=== PATIENT | male | born 1960 | race Caucasian/White ===

== ENCOUNTER 2017-09-07 15:54 | Inpatient (IN) ==
[2017-09-07] MEDS ORDERED: FUROSEMIDE 40 MG/4 ML VIAL IV STA (17:17)
[2017-09-07 17:24] LABS: Basophils % 0.8 % (0.0-0.8); Eosinophils # 0.1 10*3/uL (0.0-0.87); Eosinophils % 3.8 % (0.00-10.9); Hematocrit 22.2 VOL% (42.0-52.0); Hemoglobin 7.1 GM/DL (14.0-18.0); Immature Granulocytes % 0.4 %; Immature Granulocytes Absolute 0.01 #; Lymphocytes # 0.6 10*3/uL (1.4-4.0); Lymphocytes % 22.2 % (21.2-54.2); Mean Corpuscular Hemoglobin 33 PG (27-34); Mean Corpuscular Volume 101.8 FL (87-102); Monocytes # 0.5 10*3/uL (0.11-0.8); Monocytes % 17.7 % (1.7-12.7); Neutrophils # 1.5 10*3/uL (1.4-7.4); Neutrophils % 55.1 % (38.7-73.9); Red Blood Count 2.18 MC/CUMM (3.8-5.5); Red Cell Distribution Width 18.6 % (9.3-17.3); White Blood Count 2.7 T/CUMM (4-12)
[2017-09-07 17:27] LABS: Platelet Count 59 T/CUMM (130-400)
[2017-09-07 17:34] LABS: Albumin 1.7 G/DL (3.4-5.0); Bilirubin,Total 1.9 MG/DL (0.2-1.0); Calcium 7.7 MG/DL (8.5-10.1); Osmolality,Calculated 278.5 MOS/KG (273-304); Potassium 3.7 MMOL/L (3.5-5.1); Total Protein 6.2 G/DL (6.4-8.3)
[2017-09-07 19:12] LABS: Eosinophils 4 % (0-10); Lymphocytes 15 % (20-55); Platelet Estimate Decreased; Segmented Neutrophils 71 % (50-85); Total Cells Counted 100
[2017-09-07 19:24] LABS: Apearance,Urine CLEAR (Clear); Bilirubin,Urine Negative (Negative); Blood, Urine Negative (Negative); Glucose,Urine (UA) Negative (Negative); Hyaline Casts,Urine 3 /LPF (0-3); Ketones,Urine Negative (Negative); Mucus,Urine Occasional /LPF (Occasional); Nitrite,Urine Negative (Negative); Protein,Urine Negative; RBC,Urine <1 /HPF (0-4); Squamous Epithelial Cell,Urine Occasional /HPF (0-10); Urine Color Yellow (Yellow); Urine Specific Gravity 1.006 (1.001-1.035); Urine Urobilinogen < 2.0 EU/DL (0.2-1.0); WBC,Urine 1 /HPF (0-6)
[2017-09-07] MEDS ORDERED: SODIUM CHLORIDE 0.9% 1,000 ML IV PRN (23:48)
[2017-09-08] MEDS: FUROSEMIDE 40 MG/4 ML VIAL IV SCH ×3 (00:04→17:18)
[2017-09-08 00:13] LABS: Ferritin 9.9 ng/ml (26-388)
[2017-09-08 00:19] LABS: Folate 13.3 NG/ML (5.4-24.0)
[2017-09-08 05:18] LABS: Basophils % 0.8 % (0.0-0.8); Eosinophils # 0.1 10*3/uL (0.0-0.87); Hematocrit 23.7 VOL% (42.0-52.0); Hemoglobin 7.4 GM/DL (14.0-18.0); Lymphocytes # 0.6 10*3/uL (1.4-4.0); Lymphocytes % 25.3 % (21.2-54.2); Mean Corpuscular HGB Conc 31.2 GM/DL (32-36); Mean Corpuscular Hemoglobin 32 PG (27-34); Mean Corpuscular Volume 101.3 FL (87-102); Mean Platelet Volume 11.2 FL (9.6-12.0); Monocytes # 0.5 10*3/uL (0.11-0.8); Monocytes % 20.9 % (1.7-12.7); Neutrophils # 1.2 10*3/uL (1.4-7.4); Platelet Count 53 T/CUMM (130-400); Red Blood Count 2.34 MC/CUMM (3.8-5.5); Red Cell Distribution Width 19.1 % (9.3-17.3); White Blood Count 2.5 T/CUMM (4-12)
[2017-09-08] MEDS ORDERED: SODIUM CHLORIDE 0.9% 1,000 ML IV PRN ×2 (05:43→05:59)
[2017-09-08 05:51] LABS: Albumin 1.7 G/DL (3.4-5.0); Bilirubin,Total 1.7 MG/DL (0.2-1.0); Calcium 7.8 MG/DL (8.5-10.1); Osmolality,Calculated 282.3 MOS/KG (273-304); Potassium 3.7 MMOL/L (3.5-5.1)
[2017-09-08 05:59] LABS: INR 1.5; PT Patient Result 15.4 SECS; Partial Thromboplastin Time 29.9 SECS (0-40)
[2017-09-08 06:10] LABS: Band Neutrophils 3 % (0-10); Lymphocytes 28 % (20-55); Macrocytosis 3+; Platelet Estimate Decreased; Segmented Neutrophils 58 % (50-85); Total Cells Counted 100
[2017-09-08] MEDS: PANTOPRAZOLE 40 MG TABLET PO SCH (09:19)
[2017-09-08] MEDS: POTASSIUM CHLORIDE 20 MEQ TABLET PO SCH (09:20)
[2017-09-08] MEDS: PROPRANOLOL 10 MG TABLET PO SCH (09:20)
[2017-09-08] MEDS: SPIRONOLACTONE 25 MG TABLET PO SCH (09:20)
[2017-09-08] MEDS ORDERED: IRON SUCROSE 200 MG in SODIUM CHLORIDE 0.9% 100 ML IV ONE (12:17)
[2017-09-08] MEDS: MULTIVITAMIN (BEROCCA) TABLET PO SCH (14:18)
[2017-09-09] MEDS: FUROSEMIDE 40 MG/4 ML VIAL IV SCH ×3 (00:30→16:54)
[2017-09-09 04:56] LABS: Basophils % 0.8 % (0.0-0.8); Eosinophils # 0.1 10*3/uL (0.0-0.87); Eosinophils % 3.4 % (0.00-10.9); Hematocrit 26.3 VOL% (42.0-52.0); Hemoglobin 8.7 GM/DL (14.0-18.0); Lymphocytes # 0.6 10*3/uL (1.4-4.0); Lymphocytes % 22.8 % (21.2-54.2); Mean Corpuscular HGB Conc 33.1 GM/DL (32-36); Mean Corpuscular Hemoglobin 32 PG (27-34); Mean Corpuscular Volume 97.4 FL (87-102); Mean Platelet Volume 10.9 FL (9.6-12.0); Monocytes # 0.5 10*3/uL (0.11-0.8); Monocytes % 19.8 % (1.7-12.7); Neutrophils # 1.4 10*3/uL (1.4-7.4); Neutrophils % 53.2 % (38.7-73.9); Platelet Count 46 T/CUMM (130-400); Red Cell Distribution Width 18.2 % (9.3-17.3); White Blood Count 2.6 T/CUMM (4-12)
[2017-09-09 05:21] LABS: Calcium 7.6 MG/DL (8.5-10.1); Osmolality,Calculated 281.3 MOS/KG (273-304); Potassium 3.7 MMOL/L (3.5-5.1)
[2017-09-09 05:27] LABS: Band Neutrophils 2 % (0-10); Eosinophils 5 % (0-10); Lymphocytes 15 % (20-55); Segmented Neutrophils 63 % (50-85); Total Cells Counted 100
[2017-09-09 05:28] LABS: Hypochromasia 1+; Macrocytosis 1+; Platelet Estimate Decreased
[2017-09-09] MEDS ORDERED: MAGNESIUM SULF RIDER 2 GM in PREMIX 1 EACH IV PRN (06:12)
[2017-09-09] MEDS: MAGNESIUM SULF RIDER 4 GM in PREMIX 1 EACH IV PRN (06:23)
[2017-09-09] MEDS ORDERED: ALBUMIN 25% 25 GM in PREMIX 1 EACH IV ONE (10:00)
[2017-09-09] MEDS: PANTOPRAZOLE 40 MG TABLET PO SCH (10:17)
[2017-09-09] MEDS: SPIRONOLACTONE 25 MG TABLET PO SCH (10:17)
[2017-09-09] MEDS: MULTIVITAMIN (BEROCCA) TABLET PO SCH (10:17)
[2017-09-09] MEDS: POTASSIUM CHLORIDE 20 MEQ TABLET PO SCH (10:17)
[2017-09-09] MEDS: PROPRANOLOL 10 MG TABLET PO SCH (10:18)
[2017-09-10] MEDS: FUROSEMIDE 40 MG/4 ML VIAL IV SCH ×3 (02:09→16:43)
[2017-09-10 06:58] LABS: Basophils % 0.4 % (0.0-0.8); Eosinophils # 0.1 10*3/uL (0.0-0.87); Eosinophils % 3.2 % (0.00-10.9); Hematocrit 26.9 VOL% (42.0-52.0); Hemoglobin 8.7 GM/DL (14.0-18.0); Lymphocytes # 0.5 10*3/uL (1.4-4.0); Lymphocytes % 21.4 % (21.2-54.2); Mean Corpuscular HGB Conc 32.3 GM/DL (32-36); Mean Corpuscular Hemoglobin 32 PG (27-34); Mean Corpuscular Volume 98.9 FL (87-102); Mean Platelet Volume 11.2 FL (9.6-12.0); Monocytes # 0.6 10*3/uL (0.11-0.8); Monocytes % 23.4 % (1.7-12.7); Neutrophils # 1.3 10*3/uL (1.4-7.4); Neutrophils % 51.6 % (38.7-73.9); Red Blood Count 2.72 MC/CUMM (3.8-5.5); Red Cell Distribution Width 17.4 % (9.3-17.3); White Blood Count 2.5 T/CUMM (4-12)
[2017-09-10 07:17] LABS: Platelet Count 49 T/CUMM (130-400)
[2017-09-10 07:26] LABS: Calcium 7.8 MG/DL (8.5-10.1); Osmolality,Calculated 280.3 MOS/KG (273-304); Potassium 3.5 MMOL/L (3.5-5.1)
[2017-09-10 07:29] LABS: Albumin 1.8 G/DL (3.4-5.0); Bilirubin,Total 2.1 MG/DL (0.2-1.0); Calcium 7.8 MG/DL (8.5-10.1); Hypochromasia 1+; Osmolality,Calculated 280.3 MOS/KG (273-304); Potassium 3.5 MMOL/L (3.5-5.1); Target Cells Slight; Total Protein 6.4 G/DL (6.4-8.3)
[2017-09-10 07:30] LABS: Macrocytosis 1+; Platelet Estimate Decreased
[2017-09-10] MEDS: POTASSIUM CHLORIDE 20 MEQ TABLET PO SCH (09:46)
[2017-09-10] MEDS: PROPRANOLOL 10 MG TABLET PO SCH (09:47)
[2017-09-10] MEDS: MULTIVITAMIN (BEROCCA) TABLET PO SCH (09:47)
[2017-09-10] MEDS: PANTOPRAZOLE 40 MG TABLET PO SCH ×2 (09:47→20:34)
[2017-09-10] MEDS: SPIRONOLACTONE 25 MG TABLET PO SCH (09:47)
[2017-09-10 12:26] LABS: HIV Antigen/Antibody Result Nonreactive (Nonreactive)
[2017-09-10] MEDS ORDERED: NEOMYCIN/POLYMYXIN/BACITRACIN OINT 0.9 GM PACK TOP PRN (18:36)
[2017-09-10] MEDS ORDERED: SKIN HEALING OINT (AQUAPHOR) 50 GM TUBE TOP PRN (18:36)
[2017-09-10] MEDS: FERROUS SULFATE 325 MG TABLET PO SCH (20:34)
[2017-09-11 06:02] LABS: Basophils % 0.9 % (0.0-0.8); Eosinophils # 0.1 10*3/uL (0.0-0.87); Eosinophils % 2.7 % (0.00-10.9); Hematocrit 26.5 VOL% (42.0-52.0); Hemoglobin 8.6 GM/DL (14.0-18.0); Immature Granulocytes % 0.9 %; Immature Granulocytes Absolute 0.02 #; Lymphocytes # 0.5 10*3/uL (1.4-4.0); Lymphocytes % 19.9 % (21.2-54.2); Mean Corpuscular HGB Conc 32.5 GM/DL (32-36); Mean Corpuscular Hemoglobin 31 PG (27-34); Mean Corpuscular Volume 96.4 FL (87-102); Mean Platelet Volume 10.8 FL (9.6-12.0); Monocytes # 0.4 10*3/uL (0.11-0.8); Neutrophils # 1.3 10*3/uL (1.4-7.4); Neutrophils % 56.6 % (38.7-73.9); Platelet Count 52 T/CUMM (130-400); Red Blood Count 2.75 MC/CUMM (3.8-5.5); Red Cell Distribution Width 17.3 % (9.3-17.3); White Blood Count 2.3 T/CUMM (4-12)
[2017-09-11 06:28] LABS: Atypical Lymphocytes Few; Eosinophils 3 % (0-10); Hypochromasia 1+; Lymphocytes 24 % (20-55); Segmented Neutrophils 59 % (50-85); Total Cells Counted 100
[2017-09-11 06:29] LABS: Macrocytosis 1+; Platelet Estimate Decreased; Polychromasia Slight
[2017-09-11 06:38] LABS: Albumin 1.8 G/DL (3.4-5.0); Bilirubin,Direct 0.95 MG/DL (0.0-0.20); Bilirubin,Indirect 1.3 MG/DL (0.0-1.0); Bilirubin,Total 2.2 MG/DL (0.2-1.0); Calcium 7.5 MG/DL (8.5-10.1); Osmolality,Calculated 271.8 MOS/KG (273-304); Potassium 3.6 MMOL/L (3.5-5.1); Total Protein 6.4 G/DL (6.4-8.3)
[2017-09-11] MEDS: MULTIVITAMIN (BEROCCA) TABLET PO SCH (09:58)
[2017-09-11] MEDS: PANTOPRAZOLE 40 MG TABLET PO SCH ×2 (09:58→20:58)
[2017-09-11] MEDS: PROPRANOLOL 10 MG TABLET PO SCH (09:58)
[2017-09-11] MEDS: POTASSIUM CHLORIDE 20 MEQ TABLET PO SCH (09:59)
[2017-09-11] MEDS: FERROUS SULFATE 325 MG TABLET PO SCH ×3 (09:59→20:58)
[2017-09-11] MEDS: SPIRONOLACTONE 25 MG TABLET PO SCH (09:59)
[2017-09-11] MEDS: FUROSEMIDE 40 MG/4 ML VIAL IV SCH ×2 (10:02→17:15)
[2017-09-11] MEDS ORDERED: FUROSEMIDE 40 MG/4 ML VIAL IV ONE (13:39)
[2017-09-11] MEDS ORDERED: ALBUMIN 25% 25 GM in PREMIX 1 EACH IV ONE (14:00)
[2017-09-11] MEDS: BISACODYL 5 MG TABLET PO SCH ×2 (14:23→18:41)
[2017-09-11] MEDS: MAGNESIUM SULF RIDER 4 GM in PREMIX 1 EACH IV PRN (14:29)
[2017-09-11] MEDS ORDERED: LIDOCAINE 1% 5 ML VIAL ONE (15:10)
[2017-09-11] MEDS ORDERED: PROPOFOL 200 MG/20 ML VIAL IV ONE (15:10)
[2017-09-11] MEDS ORDERED: IBUPROFEN 600 MG TABLET PO PRN ×2 (16:07→16:25)
[2017-09-11] MEDS ORDERED: POLYETHYLENE GLYCOL POWDER 255 GM BOTTLE PO ONE (18:00)
[2017-09-11] MEDS: MAGNESIUM CHLORIDE 64 MG TABLET PO SCH (20:58)
[2017-09-11] MEDS ORDERED: MAGNESIUM CITRATE 300 ML BOTTLE PO ONE (21:00)
[2017-09-12] MEDS: BISACODYL 5 MG TABLET PO SCH (00:38)
[2017-09-12 05:24] LABS: Basophils % 0.9 % (0.0-0.8); Eosinophils # 0.1 10*3/uL (0.0-0.87); Hematocrit 26.9 VOL% (42.0-52.0); Hemoglobin 8.9 GM/DL (14.0-18.0); Immature Granulocytes % 0.6 %; Immature Granulocytes Absolute 0.02 #; Lymphocytes # 0.8 10*3/uL (1.4-4.0); Lymphocytes % 22.5 % (21.2-54.2); Mean Corpuscular HGB Conc 33.1 GM/DL (32-36); Mean Corpuscular Hemoglobin 33 PG (27-34); Mean Corpuscular Volume 98.2 FL (87-102); Mean Platelet Volume 11.2 FL (9.6-12.0); Monocytes # 0.9 10*3/uL (0.11-0.8); Monocytes % 26.6 % (1.7-12.7); NRBC # 0.02 10*3/uL; Neutrophils # 1.6 10*3/uL (1.4-7.4); Neutrophils % 46.4 % (38.7-73.9); Platelet Count 55 T/CUMM (130-400); Red Blood Count 2.74 MC/CUMM (3.8-5.5); Red Cell Distribution Width 17.2 % (9.3-17.3); White Blood Count 3.3 T/CUMM (4-12)
[2017-09-12 06:06] LABS: Albumin 2.1 G/DL (3.4-5.0); Band Neutrophils 8 % (0-10); Bilirubin,Direct 1.05 MG/DL (0.0-0.20); Bilirubin,Indirect 1.1 MG/DL (0.0-1.0); Bilirubin,Total 2.1 MG/DL (0.2-1.0); Calcium 7.7 MG/DL (8.5-10.1); Eosinophils 6 % (0-10); Lymphocytes 17 % (20-55); Macrocytosis 2+; Osmolality,Calculated 275.5 MOS/KG (273-304); Platelet Estimate Decreased; Potassium 3.4 MMOL/L (3.5-5.1); Segmented Neutrophils 60 % (50-85); Total Cells Counted 100; Total Protein 6.6 G/DL (6.4-8.3)
[2017-09-12] MEDS ORDERED: LIDOCAINE 1% 5 ML VIAL ONE (08:08)
[2017-09-12] MEDS ORDERED: PROPOFOL 200 MG/20 ML VIAL IV ONE (08:08)
[2017-09-12] MEDS ORDERED: ACETAMINOPHEN 500 MG TABLET PO PRN (08:41)
[2017-09-12] MEDS ORDERED: PROPRANOLOL 10 MG TABLET PO SCH (09:00)
[2017-09-12] MEDS: MAGNESIUM CHLORIDE 64 MG TABLET PO SCH (09:28)
[2017-09-12] MEDS: FERROUS SULFATE 325 MG TABLET PO SCH (09:28)
[2017-09-12] MEDS: PANTOPRAZOLE 40 MG TABLET PO SCH (09:28)
[2017-09-12] MEDS: MULTIVITAMIN (BEROCCA) TABLET PO SCH (09:29)
[2017-09-12] MEDS: FUROSEMIDE 40 MG/4 ML VIAL IV SCH (09:29)
[2017-09-12] MEDS: SPIRONOLACTONE 25 MG TABLET PO SCH (09:29)
[2017-09-12] MEDS: POTASSIUM CHLORIDE 20 MEQ TABLET PO SCH (09:29)
[2017-09-12 12:49] VITALS: BP 127/70
== END 2017-09-12 15:05 | disposition home or self-care (01) | DRG 441 ==
LOC: N.ED 15:54 → N.EDINP 21:14 → N.TELES 22:40
PROVIDERS: ADMIT Family Medicine; ATTEND Family Medicine

== ENCOUNTER 2017-09-17 11:58 | Observation (INO) ==
[2017-09-17 15:10] LABS: Basophils % 0.7 % (0.0-0.8); Eosinophils # 0.1 10*3/uL (0.0-0.87); Eosinophils % 1.7 % (0.00-10.9); Hematocrit 33.4 VOL% (42.0-52.0); Hemoglobin 10.9 GM/DL (14.0-18.0); Immature Granulocytes % 0.5 %; Immature Granulocytes Absolute 0.02 #; Lymphocytes # 0.7 10*3/uL (1.4-4.0); Lymphocytes % 16.4 % (21.2-54.2); Mean Corpuscular HGB Conc 32.6 GM/DL (32-36); Mean Corpuscular Hemoglobin 33 PG (27-34); Mean Corpuscular Volume 100.6 FL (87-102); Monocytes # 0.6 10*3/uL (0.11-0.8); Monocytes % 15.4 % (1.7-12.7); Neutrophils # 2.6 10*3/uL (1.4-7.4); Neutrophils % 65.3 % (38.7-73.9); Platelet Count 98 T/CUMM (130-400); Red Blood Count 3.32 MC/CUMM (3.8-5.5); Red Cell Distribution Width 19.2 % (9.3-17.3)
[2017-09-17 15:17] LABS: INR 1.3; PT Patient Result 13.8 SECS; Partial Thromboplastin Time 28.8 SECS (0-40)
[2017-09-17 15:26] LABS: Albumin 2.5 G/DL (3.4-5.0); Bilirubin,Total 2.2 MG/DL (0.2-1.0); Calcium 8.1 MG/DL (8.5-10.1); Osmolality,Calculated 276.5 MOS/KG (273-304); Potassium 3.6 MMOL/L (3.5-5.1); Total Protein 7.8 G/DL (6.4-8.3)
[2017-09-17 15:55] LABS: Barbiturates Screen,Urine Negative (Negative); Benzodiazepines Screen,Urine Negative (Negative); Cannabinoid Screen,Urine Negative (Negative); Opiate Screen,Urine Negative (Negative); Phencyclidine Screen,Urine Negative (Negative)
[2017-09-17 16:01] LABS: Apearance,Urine CLEAR (Clear); Bilirubin,Urine Negative (Negative); Blood, Urine Small mg/dL (Negative); Glucose,Urine (UA) Negative (Negative); Ketones,Urine 5 mg/dL (Negative); Mucus,Urine Occasional /LPF (Occasional); Nitrite,Urine Negative (Negative); Protein,Urine Negative; RBC,Urine 3 /HPF (0-4); Urine Color Amber (Yellow); Urine Specific Gravity 1.017 (1.001-1.035); WBC,Urine 2 /HPF (0-6)
[2017-09-17] MEDS ORDERED: ONDANSETRON 4 MG/2 ML VIAL IV PRN (16:57)
[2017-09-17] MEDS ORDERED: ACETAMINOPHEN 325 MG TABLET PO PRN (16:57)
[2017-09-17] MEDS ORDERED: LACTULOSE 20 GM/30 ML UDCUP PO STA (17:00)
[2017-09-17] MEDS ORDERED: PANTOPRAZOLE 40 MG TABLET PO SCH (17:00)
[2017-09-17 17:20] LABS: Albumin 2.5 G/DL (3.4-5.0); Bilirubin,Direct 1.18 MG/DL (0.0-0.20); Bilirubin,Indirect 1.1 MG/DL (0.0-1.0); Bilirubin,Total 2.3 MG/DL (0.2-1.0); Total Protein 7.8 G/DL (6.4-8.3)
[2017-09-17] MEDS: MAGNESIUM CHLORIDE 64 MG TABLET PO SCH (21:13)
[2017-09-17] MEDS: DOCUSATE SODIUM 100 MG CAPSULE PO SCH (21:13)
[2017-09-17] MEDS: FUROSEMIDE 40 MG TABLET PO SCH (21:13)
[2017-09-17] MEDS: FERROUS SULFATE 325 MG TABLET PO SCH (21:14)
[2017-09-17] MEDS ORDERED: ALBUTEROL 2.5 MG/3 ML NEB RESP TX PRN (22:39)
[2017-09-17] MEDS: LACTULOSE 20 GM/30 ML UDCUP PO SCH (23:25)
[2017-09-18] MEDS: LACTULOSE 20 GM/30 ML UDCUP PO SCH ×2 (06:06→19:41)
[2017-09-18] MEDS ORDERED: SPIRONOLACTONE 50 MG TABLET PO SCH (09:00)
[2017-09-18 09:23] LABS: Eosinophils # 0.1 10*3/uL (0.0-0.87); Eosinophils % 2.6 % (0.00-10.9); Hematocrit 30.2 VOL% (42.0-52.0); Hemoglobin 10.2 GM/DL (14.0-18.0); Immature Granulocytes % 0.3 %; Immature Granulocytes Absolute 0.01 #; Lymphocytes # 0.6 10*3/uL (1.4-4.0); Lymphocytes % 20.3 % (21.2-54.2); Mean Corpuscular HGB Conc 33.8 GM/DL (32-36); Mean Corpuscular Hemoglobin 33 PG (27-34); Mean Corpuscular Volume 98.1 FL (87-102); Mean Platelet Volume 10.3 FL (9.6-12.0); Monocytes # 0.5 10*3/uL (0.11-0.8); Monocytes % 16.7 % (1.7-12.7); Neutrophils # 1.8 10*3/uL (1.4-7.4); Neutrophils % 59.1 % (38.7-73.9); Platelet Count 88 T/CUMM (130-400); Red Blood Count 3.08 MC/CUMM (3.8-5.5); Red Cell Distribution Width 18.8 % (9.3-17.3); White Blood Count 3.1 T/CUMM (4-12)
[2017-09-18 09:36] LABS: Calcium 8.1 MG/DL (8.5-10.1); Osmolality,Calculated 275.7 MOS/KG (273-304); Potassium 3.3 MMOL/L (3.5-5.1)
[2017-09-18 09:42] LABS: Albumin 2.3 G/DL (3.4-5.0); Bilirubin,Direct 1.01 MG/DL (0.0-0.20); Bilirubin,Indirect 1.1 MG/DL (0.0-1.0); Bilirubin,Total 2.1 MG/DL (0.2-1.0); Total Protein 7.3 G/DL (6.4-8.3)
[2017-09-18 09:52] LABS: Anisocytosis Slight; Band Neutrophils 5 % (0-10); Eosinophils 2 % (0-10); Lymphocytes 19 % (20-55); Platelet Estimate Decreased; Polychromasia Slight; Segmented Neutrophils 61 % (50-85); Total Cells Counted 100
[2017-09-18 09:53] LABS: Macrocytosis Slight
[2017-09-18] MEDS ORDERED: MAGNESIUM SULF RIDER 2 GM in PREMIX 1 EACH IV PRN (10:39)
[2017-09-18] MEDS ORDERED: MAGNESIUM SULF RIDER 4 GM in PREMIX 1 EACH IV PRN (10:39)
[2017-09-18] MEDS: SPIRONOLACTONE 25 MG TABLET PO SCH (10:49)
[2017-09-18] MEDS: DOCUSATE SODIUM 100 MG CAPSULE PO SCH ×2 (10:49→21:18)
[2017-09-18] MEDS: FERROUS SULFATE 325 MG TABLET PO SCH ×3 (10:49→21:18)
[2017-09-18] MEDS: PROPRANOLOL 10 MG TABLET PO SCH (10:50)
[2017-09-18] MEDS: PANTOPRAZOLE 40 MG TABLET PO SCH ×2 (10:50→21:18)
[2017-09-18] MEDS: FUROSEMIDE 40 MG TABLET PO SCH ×2 (10:50→21:18)
[2017-09-18] MEDS: POTASSIUM CHLORIDE 20 MEQ TABLET PO SCH (10:50)
[2017-09-18] MEDS: MAGNESIUM CHLORIDE 64 MG TABLET PO SCH ×2 (10:50→21:18)
[2017-09-18] MEDS ORDERED: LACTULOSE 20 GM/30 ML UDCUP PO ONE (12:18)
[2017-09-18] MEDS: traZODone 50 MG TABLET PO PRN (21:18)
[2017-09-19] MEDS: LACTULOSE 20 GM/30 ML UDCUP PO SCH ×4 (04:34→21:29)
[2017-09-19] MEDS: PANTOPRAZOLE 40 MG TABLET PO SCH (09:27)
[2017-09-19] MEDS: POTASSIUM CHLORIDE 20 MEQ TABLET PO SCH (09:27)
[2017-09-19] MEDS: SPIRONOLACTONE 25 MG TABLET PO SCH (09:27)
[2017-09-19] MEDS: DOCUSATE SODIUM 100 MG CAPSULE PO SCH (09:27)
[2017-09-19] MEDS: MAGNESIUM CHLORIDE 64 MG TABLET PO SCH ×2 (09:27→21:30)
[2017-09-19] MEDS: FERROUS SULFATE 325 MG TABLET PO SCH ×3 (09:27→21:31)
[2017-09-19] MEDS: FUROSEMIDE 40 MG TABLET PO SCH (09:27)
[2017-09-19] MEDS: PROPRANOLOL 10 MG TABLET PO SCH (09:27)
[2017-09-19 12:32] LABS: Basophils # 0.1 10*3/uL (0.0-0.2); Basophils % 1.1 % (0.0-0.8); Eosinophils # 0.1 10*3/uL (0.0-0.87); Eosinophils % 2.3 % (0.00-10.9); Hematocrit 33.3 VOL% (42.0-52.0); Immature Granulocytes % 0.2 %; Immature Granulocytes Absolute 0.01 #; Lymphocytes # 0.7 10*3/uL (1.4-4.0); Mean Corpuscular Hemoglobin 33 PG (27-34); Mean Corpuscular Volume 99.4 FL (87-102); Mean Platelet Volume 10.2 FL (9.6-12.0); Monocytes # 0.8 10*3/uL (0.11-0.8); Monocytes % 17.4 % (1.7-12.7); Neutrophils # 2.8 10*3/uL (1.4-7.4); Platelet Count 109 T/CUMM (130-400); Red Blood Count 3.35 MC/CUMM (3.8-5.5); Red Cell Distribution Width 18.4 % (9.3-17.3); White Blood Count 4.4 T/CUMM (4-12)
[2017-09-19] MEDS ORDERED: ACETAMINOPHEN 500 MG TABLET PO PRN (12:32)
[2017-09-19 13:05] LABS: Albumin 2.4 G/DL (3.4-5.0); Bilirubin,Direct 0.99 MG/DL (0.0-0.20); Bilirubin,Indirect 1.2 MG/DL (0.0-1.0); Bilirubin,Total 2.2 MG/DL (0.2-1.0); Calcium 7.8 MG/DL (8.5-10.1); Osmolality,Calculated 271.8 MOS/KG (273-304); Potassium 3.5 MMOL/L (3.5-5.1)
[2017-09-19 14:53] LABS: Eosinophils 6 % (0-10); Lymphocytes 15 % (20-55); Metamyelocytes 1 %; Polychromasia Few; Segmented Neutrophils 73 % (50-85); Smudge Cells Few; Total Cells Counted 100
[2017-09-19 14:54] LABS: Hypochromasia 1+; Microcytosis 1+; Target Cells Few
[2017-09-19 14:55] LABS: Platelet Estimate Decreased
[2017-09-19] MEDS ORDERED: POTASSIUM CHLORIDE 20 MEQ TABLET PO ONE (20:36)
[2017-09-19] MEDS ORDERED: traMADol 50 MG TABLET PO PRN (20:37)
[2017-09-19] MEDS: traZODone 50 MG TABLET PO PRN (21:30)
[2017-09-20] MEDS: LACTULOSE 20 GM/30 ML UDCUP PO SCH ×2 (03:39→11:55)
[2017-09-20 08:22] LABS: Basophils # 0.1 10*3/uL (0.0-0.2); Basophils % 1.1 % (0.0-0.8); Eosinophils # 0.1 10*3/uL (0.0-0.87); Hematocrit 35.1 VOL% (42.0-52.0); Hemoglobin 11.2 GM/DL (14.0-18.0); Immature Granulocytes % 0.5 %; Immature Granulocytes Absolute 0.02 #; Lymphocytes % 22.3 % (21.2-54.2); Mean Corpuscular HGB Conc 31.9 GM/DL (32-36); Mean Corpuscular Hemoglobin 32 PG (27-34); Mean Corpuscular Volume 101.4 FL (87-102); Mean Platelet Volume 10.3 FL (9.6-12.0); Monocytes # 0.6 10*3/uL (0.11-0.8); Monocytes % 14.5 % (1.7-12.7); Neutrophils # 2.6 10*3/uL (1.4-7.4); Neutrophils % 58.6 % (38.7-73.9); Platelet Count 103 T/CUMM (130-400); Red Blood Count 3.46 MC/CUMM (3.8-5.5); Red Cell Distribution Width 18.2 % (9.3-17.3); White Blood Count 4.4 T/CUMM (4-12)
[2017-09-20 08:35] LABS: INR 1.3; PT Patient Result 13.5 SECS
[2017-09-20 08:47] LABS: Albumin 2.2 G/DL (3.4-5.0); Bilirubin,Direct 0.82 MG/DL (0.0-0.20); Bilirubin,Indirect 0.8 MG/DL (0.0-1.0); Bilirubin,Total 1.6 MG/DL (0.2-1.0); Calcium 8.1 MG/DL (8.5-10.1); Osmolality,Calculated 273.7 MOS/KG (273-304); Potassium 3.7 MMOL/L (3.5-5.1); Total Protein 7.7 G/DL (6.4-8.3)
[2017-09-20] MEDS ORDERED: FUROSEMIDE 40 MG TABLET PO SCH (09:00)
[2017-09-20] MEDS ORDERED: PANTOPRAZOLE 40 MG TABLET PO SCH (09:00)
[2017-09-20 09:45] LABS: Hypochromasia 1+; Macrocytosis 1+; Polychromasia Slight
[2017-09-20 11:34] VITALS: BP 117/70
[2017-09-20] MEDS: FERROUS SULFATE 325 MG TABLET PO SCH (11:53)
[2017-09-20] MEDS: PROPRANOLOL 10 MG TABLET PO SCH (11:53)
[2017-09-20] MEDS: SPIRONOLACTONE 25 MG TABLET PO SCH (11:53)
[2017-09-20] MEDS: MAGNESIUM CHLORIDE 64 MG TABLET PO SCH (11:54)
[2017-09-20] MEDS: POTASSIUM CHLORIDE 20 MEQ TABLET PO SCH (11:54)
[2017-09-20] MEDS ORDERED: LACTULOSE 20 GM/30 ML UDCUP PO SCH (13:00)
[2017-09-20] MEDS ORDERED: RIFAXIMIN 550 MG TABLET PO SCH (21:00)
== END 2017-09-20 15:55 | disposition home or self-care (01) ==
LOC: N.ED 11:58 → N.EDINP 11:58 → N.3E 18:35
PROVIDERS: ADMIT Family Medicine; ATTEND Family Medicine

== ENCOUNTER 2018-08-03 13:10 | Inpatient (IN) ==
[2018-08-03 13:46] LABS: Basophils % 0.5 % (0.0-0.8); Eosinophils # 0.1 10*3/uL (0.0-0.87); Eosinophils % 1.3 % (0.00-10.9); Hematocrit 34.4 VOL% (42.0-52.0); Hemoglobin 11.6 GM/DL (14.0-18.0); Immature Granulocytes % 0.3 %; Immature Granulocytes Absolute 0.01 #; Lymphocytes # 0.4 10*3/uL (1.4-4.0); Lymphocytes % 9.9 % (21.2-54.2); Mean Corpuscular HGB Conc 33.7 GM/DL (32-36); Mean Corpuscular Volume 113.5 FL (87-102); Mean Platelet Volume 9.6 FL (9.6-12.0); Monocytes % 15.3 % (1.7-12.7); Neutrophils % 72.7 % (38.7-73.9); Red Blood Count 3.03 MC/CUMM (3.8-5.5); Red Cell Distribution Width 17.8 % (9.3-17.3); White Blood Count 3.9 T/CUMM (4-12)
[2018-08-03 13:49] LABS: Platelet Count 82 T/CUMM (130-400)
[2018-08-03 14:01] LABS: Bilirubin,Total 5.8 MG/DL (0.2-1.0); Calcium 7.9 MG/DL (8.5-10.1); Total Protein 7.4 G/DL (6.4-8.3)
[2018-08-03 14:05] LABS: INR 1.6; PT Patient Result 17.3 SECS
[2018-08-03 14:07] LABS: Anisocytosis Slight; Lymphocytes 10 % (20-55); Segmented Neutrophils 76 % (50-85); Total Cells Counted 100
[2018-08-03 14:08] LABS: Platelet Estimate Decreased; Target Cells Few
[2018-08-03] MEDS ORDERED: ONDANSETRON 4 MG/2 ML VIAL IV PRN (15:25)
[2018-08-03] MEDS ORDERED: LACTULOSE 20 GM/30 ML UDCUP PO PRN (15:29)
[2018-08-03] MEDS ORDERED: ALBUTEROL 2.5 MG/3 ML NEB RESP TX PRN (15:29)
[2018-08-03] MEDS: FUROSEMIDE 40 MG/4 ML VIAL IV SCH (17:32)
[2018-08-03] MEDS: GABAPENTIN 100 MG CAPSULE PO SCH (20:37)
[2018-08-03] MEDS: traZODone 50 MG TABLET PO PRN (20:41)
[2018-08-04 04:26] LABS: Basophils % 0.7 % (0.0-0.8); Eosinophils # 0.1 10*3/uL (0.0-0.87); Eosinophils % 2.7 % (0.00-10.9); Hematocrit 29.1 VOL% (42.0-52.0); Hemoglobin 9.7 GM/DL (14.0-18.0); Immature Granulocytes % 0.3 %; Immature Granulocytes Absolute 0.01 #; Lymphocytes # 0.4 10*3/uL (1.4-4.0); Lymphocytes % 12.6 % (21.2-54.2); Mean Corpuscular HGB Conc 33.3 GM/DL (32-36); Mean Corpuscular Volume 113.2 FL (87-102); Mean Platelet Volume 9.6 FL (9.6-12.0); Monocytes % 16.3 % (1.7-12.7); Neutrophils % 67.4 % (38.7-73.9); Red Blood Count 2.57 MC/CUMM (3.8-5.5); Red Cell Distribution Width 17.8 % (9.3-17.3)
[2018-08-04 04:33] LABS: Platelet Count 61 T/CUMM (130-400)
[2018-08-04 04:43] LABS: Calcium 7.5 MG/DL (8.5-10.1)
[2018-08-04 05:00] LABS: Eosinophils 1 % (0-10); Lymphocytes 14 % (20-55); Segmented Neutrophils 68 % (50-85); Total Cells Counted 100
[2018-08-04 05:01] LABS: Anisocytosis 1+; Hypochromasia 2+; Macrocytosis 1+; Platelet Estimate Decreased
[2018-08-04] MEDS: VENLAFAXINE XR 37.5 MG CAPSULE PO SCH (09:16)
[2018-08-04] MEDS: PANTOPRAZOLE 40 MG TABLET PO SCH (09:16)
[2018-08-04] MEDS: SPIRONOLACTONE 100 MG TABLET PO SCH (09:16)
[2018-08-04] MEDS: FERROUS SULFATE 325 MG TABLET PO SCH (09:17)
[2018-08-04] MEDS: GABAPENTIN 100 MG CAPSULE PO SCH ×2 (09:17→21:33)
[2018-08-04] MEDS: FUROSEMIDE 40 MG/4 ML VIAL IV SCH ×2 (09:17→16:29)
[2018-08-04] MEDS: POTASSIUM CHLORIDE 20 MEQ TABLET PO SCH (09:17)
[2018-08-04 11:59] LABS: Albumin 1.7 G/DL (3.4-5.0); Bilirubin,Direct 3.4 MG/DL (0.0-0.20); Bilirubin,Indirect 2.3 MG/DL (0.0-1.0); Bilirubin,Total 5.7 MG/DL (0.2-1.0); Total Protein 6.4 G/DL (6.4-8.3)
[2018-08-04] MEDS ORDERED: MAGNESIUM SULF RIDER 4 GM in PREMIX 1 EACH IV PRN (13:53)
[2018-08-04] MEDS: POTASSIUM CHLORIDE 20 MEQ TABLET PO PRN ×4 (14:28→21:32)
[2018-08-04] MEDS: MAGNESIUM CHLORIDE 64 MG TABLET PO SCH (21:32)
[2018-08-04] MEDS: traZODone 50 MG TABLET PO PRN (21:33)
[2018-08-05 05:12] LABS: Calcium 7.5 MG/DL (8.5-10.1); Osmolality,Calculated 265.2 MOS/KG (273-304)
[2018-08-05 05:14] LABS: Albumin 1.6 G/DL (3.4-5.0); Bilirubin,Total 5.5 MG/DL (0.2-1.0); Calcium 7.5 MG/DL (8.5-10.1); Osmolality,Calculated 265.2 MOS/KG (273-304); Total Protein 6.2 G/DL (6.4-8.3)
[2018-08-05] MEDS: POTASSIUM CHLORIDE 20 MEQ TABLET PO PRN ×2 (05:44→14:45)
[2018-08-05] MEDS: MAGNESIUM SULF RIDER 2 GM in PREMIX 1 EACH IV PRN (05:44)
[2018-08-05 07:43] LABS: Basophils % 0.6 % (0.0-0.8); Eosinophils # 0.1 10*3/uL (0.0-0.87); Eosinophils % 1.9 % (0.00-10.9); Hematocrit 31.5 VOL% (42.0-52.0); Hemoglobin 10.8 GM/DL (14.0-18.0); Immature Granulocytes % 0.6 %; Immature Granulocytes Absolute 0.02 #; Lymphocytes # 0.5 10*3/uL (1.4-4.0); Lymphocytes % 12.5 % (21.2-54.2); Mean Corpuscular HGB Conc 34.3 GM/DL (32-36); Mean Corpuscular Volume 114.1 FL (87-102); Mean Platelet Volume 9.6 FL (9.6-12.0); Monocytes % 16.7 % (1.7-12.7); Neutrophils % 67.7 % (38.7-73.9); Platelet Count 56 T/CUMM (130-400); Red Blood Count 2.76 MC/CUMM (3.8-5.5); Red Cell Distribution Width 17.4 % (9.3-17.3); White Blood Count 3.6 T/CUMM (4-12)
[2018-08-05 08:05] LABS: Band Neutrophils 1 % (0-10); Eosinophils 4 % (0-10); Lymphocytes 9 % (20-55); Segmented Neutrophils 73 % (50-85); Total Cells Counted 100
[2018-08-05 08:06] LABS: Hypochromasia 1+; Macrocytosis Slight; Platelet Estimate Decreased
[2018-08-05] MEDS: GABAPENTIN 100 MG CAPSULE PO SCH ×2 (10:18→20:54)
[2018-08-05] MEDS: MAGNESIUM CHLORIDE 64 MG TABLET PO SCH ×3 (10:18→20:54)
[2018-08-05] MEDS: SPIRONOLACTONE 100 MG TABLET PO SCH (10:18)
[2018-08-05] MEDS: FERROUS SULFATE 325 MG TABLET PO SCH (10:18)
[2018-08-05] MEDS: FUROSEMIDE 40 MG/4 ML VIAL IV SCH ×2 (10:19→16:48)
[2018-08-05] MEDS: VENLAFAXINE XR 37.5 MG CAPSULE PO SCH (10:19)
[2018-08-05] MEDS: LACTULOSE 20 GM/30 ML UDCUP PO SCH ×3 (10:19→20:54)
[2018-08-05] MEDS: POTASSIUM CHLORIDE 20 MEQ TABLET PO SCH (11:42)
[2018-08-05] MEDS: PANTOPRAZOLE 40 MG TABLET PO SCH (11:43)
[2018-08-05] MEDS: traZODone 50 MG TABLET PO PRN (20:54)
[2018-08-06] MEDS: LACTULOSE 20 GM/30 ML UDCUP PO SCH ×4 (03:43→22:58)
[2018-08-06 04:55] LABS: Albumin 1.6 G/DL (3.4-5.0); Bilirubin,Direct 2.99 MG/DL (0.0-0.20); Bilirubin,Indirect 2.4 MG/DL (0.0-1.0); Bilirubin,Total 5.4 MG/DL (0.2-1.0); Total Protein 6.3 G/DL (6.4-8.3)
[2018-08-06 04:57] LABS: Basophils % 0.6 % (0.0-0.8); Eosinophils # 0.1 10*3/uL (0.0-0.87); Eosinophils % 2.2 % (0.00-10.9); Hematocrit 29.3 VOL% (42.0-52.0); Immature Granulocytes % 0.3 %; Immature Granulocytes Absolute 0.01 #; Lymphocytes # 0.4 10*3/uL (1.4-4.0); Lymphocytes % 13.2 % (21.2-54.2); Mean Corpuscular HGB Conc 34.1 GM/DL (32-36); Mean Corpuscular Volume 115.4 FL (87-102); Mean Platelet Volume 9.9 FL (9.6-12.0); Monocytes % 18.9 % (1.7-12.7); Neutrophils % 64.8 % (38.7-73.9); Platelet Count 53 T/CUMM (130-400); Red Blood Count 2.54 MC/CUMM (3.8-5.5); Red Cell Distribution Width 17.3 % (9.3-17.3); White Blood Count 3.2 T/CUMM (4-12)
[2018-08-06 05:01] LABS: Calcium 7.5 MG/DL (8.5-10.1); Osmolality,Calculated 270.8 MOS/KG (273-304)
[2018-08-06 06:28] LABS: Band Neutrophils 2 % (0-10); Total Cells Counted 100
[2018-08-06 06:29] LABS: Anisocytosis 3+; Eosinophils 4 % (0-10); Hypochromasia 2+; Lymphocytes 15 % (20-55); Macrocytosis 2+; Microcytosis 1+; Ovalocytes 1+; Platelet Estimate Decreased; Polychromasia Few; Segmented Neutrophils 63 % (50-85)
[2018-08-06] MEDS: PANTOPRAZOLE 40 MG TABLET PO SCH (08:59)
[2018-08-06] MEDS: MAGNESIUM CHLORIDE 64 MG TABLET PO SCH ×3 (08:59→22:58)
[2018-08-06] MEDS: FERROUS SULFATE 325 MG TABLET PO SCH (08:59)
[2018-08-06] MEDS: SPIRONOLACTONE 100 MG TABLET PO SCH (08:59)
[2018-08-06] MEDS: POTASSIUM CHLORIDE 20 MEQ TABLET PO SCH (08:59)
[2018-08-06] MEDS: GABAPENTIN 100 MG CAPSULE PO SCH ×2 (08:59→22:58)
[2018-08-06] MEDS: FUROSEMIDE 40 MG/4 ML VIAL IV SCH ×2 (08:59→15:58)
[2018-08-06] MEDS: VENLAFAXINE XR 37.5 MG CAPSULE PO SCH (09:55)
[2018-08-06] MEDS: MAGNESIUM SULF RIDER 2 GM in PREMIX 1 EACH IV PRN (13:59)
[2018-08-06] MEDS: POTASSIUM CHLORIDE 20 MEQ TABLET PO PRN (13:59)
[2018-08-06] MEDS: traZODone 50 MG TABLET PO PRN (22:58)
[2018-08-07 05:19] LABS: Basophils % 0.6 % (0.0-0.8); Eosinophils # 0.1 10*3/uL (0.0-0.87); Eosinophils % 2.5 % (0.00-10.9); Hematocrit 30.1 VOL% (42.0-52.0); Hemoglobin 10.1 GM/DL (14.0-18.0); Immature Granulocytes % 0.3 %; Immature Granulocytes Absolute 0.01 #; Lymphocytes # 0.4 10*3/uL (1.4-4.0); Lymphocytes % 11.3 % (21.2-54.2); Mean Corpuscular HGB Conc 33.6 GM/DL (32-36); Mean Corpuscular Volume 115.8 FL (87-102); Mean Platelet Volume 9.8 FL (9.6-12.0); Monocytes % 16.9 % (1.7-12.7); Neutrophils % 68.4 % (38.7-73.9); Platelet Count 64 T/CUMM (130-400); Red Cell Distribution Width 17.2 % (9.3-17.3); White Blood Count 3.5 T/CUMM (4-12)
[2018-08-07 05:37] LABS: Albumin 1.5 G/DL (3.4-5.0); Bilirubin,Total 5.6 MG/DL (0.2-1.0); Calcium 7.8 MG/DL (8.5-10.1); Osmolality,Calculated 267.1 MOS/KG (273-304); Total Protein 6.4 G/DL (6.4-8.3)
[2018-08-07 05:44] LABS: Albumin 1.6 G/DL (3.4-5.0); Bilirubin,Direct 2.96 MG/DL (0.0-0.20); Bilirubin,Indirect 2.6 MG/DL (0.0-1.0); Bilirubin,Total 5.6 MG/DL (0.2-1.0); Total Protein 6.4 G/DL (6.4-8.3)
[2018-08-07 05:58] LABS: Eosinophils 3 % (0-10); Lymphocytes 12 % (20-55); Metamyelocytes 1 %; Segmented Neutrophils 72 % (50-85); Total Cells Counted 100
[2018-08-07 05:59] LABS: Anisocytosis 1+; Hypochromasia 2+; Macrocytosis 1+; Platelet Estimate Decreased; Polychromasia 1+; Target Cells 2+
[2018-08-07] MEDS: LACTULOSE 20 GM/30 ML UDCUP PO SCH ×4 (06:08→21:20)
[2018-08-07 10:26] LABS: Neutrophils,Peritoneal Fluid 5 %
[2018-08-07 10:27] LABS: RBC,Peritoneal Fluid 25936 T/CUMM
[2018-08-07] MEDS: MAGNESIUM CHLORIDE 64 MG TABLET PO SCH ×3 (10:27→21:20)
[2018-08-07] MEDS: FERROUS SULFATE 325 MG TABLET PO SCH (10:27)
[2018-08-07] MEDS: PANTOPRAZOLE 40 MG TABLET PO SCH (10:27)
[2018-08-07] MEDS: SPIRONOLACTONE 100 MG TABLET PO SCH (10:27)
[2018-08-07] MEDS: FUROSEMIDE 40 MG TABLET PO SCH ×2 (10:27→16:31)
[2018-08-07] MEDS: GABAPENTIN 100 MG CAPSULE PO SCH ×2 (10:27→21:20)
[2018-08-07] MEDS: POTASSIUM CHLORIDE 20 MEQ TABLET PO SCH (10:28)
[2018-08-07] MEDS: VENLAFAXINE XR 37.5 MG CAPSULE PO SCH (10:28)
[2018-08-07] MEDS: traZODone 50 MG TABLET PO PRN (21:20)
[2018-08-08] MEDS: LACTULOSE 20 GM/30 ML UDCUP PO SCH ×2 (04:32→09:30)
[2018-08-08 05:35] LABS: Basophils % 0.8 % (0.0-0.8); Eosinophils # 0.1 10*3/uL (0.0-0.87); Eosinophils % 2.4 % (0.00-10.9); Hematocrit 31.1 VOL% (42.0-52.0); Hemoglobin 10.5 GM/DL (14.0-18.0); Immature Granulocytes % 0.5 %; Immature Granulocytes Absolute 0.02 #; Lymphocytes # 0.5 10*3/uL (1.4-4.0); Lymphocytes % 13.4 % (21.2-54.2); Mean Corpuscular HGB Conc 33.8 GM/DL (32-36); Mean Platelet Volume 9.6 FL (9.6-12.0); Monocytes % 13.4 % (1.7-12.7); Neutrophils % 69.5 % (38.7-73.9); Platelet Count 57 T/CUMM (130-400); Red Blood Count 2.68 MC/CUMM (3.8-5.5); Red Cell Distribution Width 17.1 % (9.3-17.3); White Blood Count 3.8 T/CUMM (4-12)
[2018-08-08 05:57] LABS: Calcium 7.3 MG/DL (8.5-10.1); Osmolality,Calculated 270.8 MOS/KG (273-304)
[2018-08-08 06:00] LABS: Albumin 1.5 G/DL (3.4-5.0); Bilirubin,Direct 2.81 MG/DL (0.0-0.20); Bilirubin,Indirect 2.3 MG/DL (0.0-1.0); Bilirubin,Total 5.1 MG/DL (0.2-1.0); Total Protein 6.2 G/DL (6.4-8.3)
[2018-08-08 06:45] LABS: Anisocytosis Slight; Band Neutrophils 1 % (0-10); Eosinophils 2 % (0-10); Lymphocytes 8 % (20-55); Segmented Neutrophils 78 % (50-85); Total Cells Counted 100
[2018-08-08 06:46] LABS: Macrocytosis Slight; Platelet Estimate Decreased; Target Cells Slight
[2018-08-08] MEDS: SPIRONOLACTONE 100 MG TABLET PO SCH (09:30)
[2018-08-08] MEDS: PANTOPRAZOLE 40 MG TABLET PO SCH (09:30)
[2018-08-08] MEDS: FUROSEMIDE 40 MG TABLET PO SCH (09:30)
[2018-08-08] MEDS: VENLAFAXINE XR 37.5 MG CAPSULE PO SCH (09:31)
[2018-08-08] MEDS: FERROUS SULFATE 325 MG TABLET PO SCH (09:31)
[2018-08-08] MEDS: GABAPENTIN 100 MG CAPSULE PO SCH (09:31)
[2018-08-08] MEDS: POTASSIUM CHLORIDE 20 MEQ TABLET PO SCH (09:31)
[2018-08-08] MEDS: MAGNESIUM CHLORIDE 64 MG TABLET PO SCH (09:31)
[2018-08-08 11:58] VITALS: BP 116/62
[2018-08-08 12:07] LABS: Neutrophils,Peritoneal Fluid 14 %
[2018-08-08 12:17] LABS: RBC,Peritoneal Fluid 56 T/CUMM
== END 2018-08-08 15:10 | disposition home or self-care (01) | DRG 433 ==
LOC: N.ED 13:10 → N.EDINP 15:25 → N.2E 16:36
PROVIDERS: ADMIT Family Medicine; ATTEND Family Medicine

== ENCOUNTER 2018-10-08 09:38 | Observation (INO) ==
[2018-10-08 10:40] LABS: Basophils % 0.9 % (0.0-0.8); Eosinophils # 0.1 10*3/uL (0.0-0.87); Eosinophils % 1.7 % (0.00-10.9); Hematocrit 36.3 VOL% (42.0-52.0); Hemoglobin 12.1 GM/DL (14.0-18.0); Immature Granulocytes % 0.4 %; Immature Granulocytes Absolute 0.02 #; Lymphocytes # 0.4 10*3/uL (1.4-4.0); Lymphocytes % 8.2 % (21.2-54.2); Mean Corpuscular HGB Conc 33.3 GM/DL (32-36); Mean Corpuscular Volume 113.1 FL (87-102); Mean Platelet Volume 9.2 FL (9.6-12.0); Monocytes % 16.6 % (1.7-12.7); Neutrophils % 72.2 % (38.7-73.9); Red Blood Count 3.21 MC/CUMM (3.8-5.5); White Blood Count 4.6 T/CUMM (4-12)
[2018-10-08 10:41] LABS: Platelet Count 77 T/CUMM (130-400)
[2018-10-08 10:45] LABS: INR 1.6; PT Patient Result 17.8 SECS
[2018-10-08 10:57] LABS: Bilirubin,Total 4.9 MG/DL (0.2-1.0); Calcium 7.8 MG/DL (8.5-10.1); Osmolality,Calculated 274.5 MOS/KG (273-304); Total Protein 7.1 G/DL (6.4-8.3)
[2018-10-08 11:15] LABS: Eosinophils 5 % (0-10); Hypochromasia 1+; Lymphocytes 2 % (20-55); Platelet Estimate Decreased; Segmented Neutrophils 83 % (50-85); Total Cells Counted 100
[2018-10-08] MEDS ORDERED: ONDANSETRON 4 MG/2 ML VIAL IV PRN (12:19)
[2018-10-08] MEDS ORDERED: ACETAMINOPHEN 325 MG TABLET PO PRN (12:19)
[2018-10-08] MEDS ORDERED: SODIUM CHLORIDE 0.9% 1,000 ML IV SCH (12:30)
[2018-10-08] MEDS ORDERED: LACTULOSE 20 GM/30 ML UDCUP PO PRN (13:31)
[2018-10-08] MEDS: MAGNESIUM CHLORIDE 64 MG TABLET PO SCH ×2 (15:16→21:57)
[2018-10-08] MEDS: FUROSEMIDE 40 MG TABLET PO SCH (15:16)
[2018-10-08 17:35] LABS: Apearance,Urine CLEAR (Clear); Bilirubin,Urine Negative (Negative); Blood, Urine Small mg/dL (Negative); Glucose,Urine (UA) Negative (Negative); Hyaline Casts,Urine 4 /LPF (0-3); Ketones,Urine Negative (Negative); Mucus,Urine Occasional /LPF (Occasional); Nitrite,Urine Negative (Negative); Protein,Urine Negative; RBC,Urine 23 /HPF (0-4); Urine Color Amber (Yellow); Urine Specific Gravity 1.018 (1.001-1.035); WBC,Urine 1 /HPF (0-6)
[2018-10-08] MEDS: ALBUTEROL 2.5 MG/3 ML NEB RESP TX SCH (19:15)
[2018-10-08] MEDS: POTASSIUM CHLORIDE 20 MEQ TABLET PO SCH (21:57)
[2018-10-08] MEDS: PROPRANOLOL 10 MG TABLET PO SCH (21:57)
[2018-10-08] MEDS: DOCUSATE SODIUM 100 MG CAPSULE PO SCH (21:57)
[2018-10-08] MEDS: GABAPENTIN 100 MG CAPSULE PO SCH (21:58)
[2018-10-08] MEDS: traZODone 50 MG TABLET PO PRN (22:56)
[2018-10-09] MEDS: ALBUTEROL 2.5 MG/3 ML NEB RESP TX SCH ×4 (00:21→21:21)
[2018-10-09 04:01] LABS: Basophils % 0.8 % (0.0-0.8); Eosinophils # 0.1 10*3/uL (0.0-0.87); Eosinophils % 3.4 % (0.00-10.9); Hematocrit 32.8 VOL% (42.0-52.0); Hemoglobin 10.8 GM/DL (14.0-18.0); Immature Granulocytes % 0.3 %; Immature Granulocytes Absolute 0.01 #; Lymphocytes # 0.5 10*3/uL (1.4-4.0); Lymphocytes % 13.7 % (21.2-54.2); Mean Corpuscular HGB Conc 32.9 GM/DL (32-36); Mean Corpuscular Volume 113.1 FL (87-102); Mean Platelet Volume 9.5 FL (9.6-12.0); Monocytes % 14.8 % (1.7-12.7); Platelet Count 49 T/CUMM (130-400); Red Cell Distribution Width 16.1 % (9.3-17.3); White Blood Count 3.6 T/CUMM (4-12)
[2018-10-09 04:06] LABS: INR 1.7; PT Patient Result 18.3 SECS
[2018-10-09 04:18] LABS: Albumin 1.6 G/DL (3.4-5.0); Bilirubin,Direct 2.25 MG/DL (0.0-0.20); Bilirubin,Indirect 3.2 MG/DL (0.0-1.0); Bilirubin,Total 5.4 MG/DL (0.2-1.0); Calcium 7.3 MG/DL (8.5-10.1); Osmolality,Calculated 272.7 MOS/KG (273-304); Total Protein 6.1 G/DL (6.4-8.3)
[2018-10-09 04:59] LABS: Eosinophils 4 % (0-10); Lymphocytes 7 % (20-55); Segmented Neutrophils 76 % (50-85); Total Cells Counted 100
[2018-10-09 05:00] LABS: Anisocytosis Slight; Macrocytosis Slight
[2018-10-09 05:01] LABS: Platelet Estimate Decreased; Polychromasia Slight; Stomatocytes Few
[2018-10-09 05:02] LABS: Target Cells Slight
[2018-10-09] MEDS: SPIRONOLACTONE 100 MG TABLET PO SCH (08:14)
[2018-10-09] MEDS: FUROSEMIDE 40 MG TABLET PO SCH ×2 (08:14→15:45)
[2018-10-09] MEDS: PANTOPRAZOLE 40 MG TABLET PO SCH ×2 (08:15)
[2018-10-09] MEDS: GABAPENTIN 100 MG CAPSULE PO SCH ×2 (08:15→21:37)
[2018-10-09] MEDS: FERROUS SULFATE 325 MG TABLET PO SCH (08:15)
[2018-10-09] MEDS: MAGNESIUM CHLORIDE 64 MG TABLET PO SCH ×3 (08:15→21:37)
[2018-10-09] MEDS: POTASSIUM CHLORIDE 20 MEQ TABLET PO SCH ×2 (08:15→21:37)
[2018-10-09] MEDS: VENLAFAXINE XR 37.5 MG CAPSULE PO SCH (08:15)
[2018-10-09] MEDS: PROPRANOLOL 10 MG TABLET PO SCH ×2 (08:15→21:37)
[2018-10-09] MEDS: DOCUSATE SODIUM 100 MG CAPSULE PO SCH ×2 (08:15→21:37)
[2018-10-09] MEDS ORDERED: REGADENOSON 0.4 MG/5 ML SYRINGE IV ONE (13:41)
[2018-10-09] MEDS: traZODone 50 MG TABLET PO PRN (22:26)
[2018-10-10] MEDS: ALBUTEROL 2.5 MG/3 ML NEB RESP TX SCH ×2 (00:30→07:35)
[2018-10-10] MEDS: GABAPENTIN 100 MG CAPSULE PO SCH (08:45)
[2018-10-10] MEDS: MAGNESIUM CHLORIDE 64 MG TABLET PO SCH (08:45)
[2018-10-10] MEDS: DOCUSATE SODIUM 100 MG CAPSULE PO SCH (08:46)
[2018-10-10] MEDS: FUROSEMIDE 40 MG TABLET PO SCH (08:46)
[2018-10-10] MEDS: FERROUS SULFATE 325 MG TABLET PO SCH (08:46)
[2018-10-10] MEDS: SPIRONOLACTONE 100 MG TABLET PO SCH (08:46)
[2018-10-10] MEDS: POTASSIUM CHLORIDE 20 MEQ TABLET PO SCH (08:46)
[2018-10-10] MEDS: PROPRANOLOL 10 MG TABLET PO SCH (08:46)
[2018-10-10] MEDS: PANTOPRAZOLE 40 MG TABLET PO SCH ×2 (08:46→09:03)
[2018-10-10] MEDS: VENLAFAXINE XR 37.5 MG CAPSULE PO SCH (09:04)
[2018-10-10 12:05] VITALS: BP 128/71
== END 2018-10-10 12:00 | disposition home or self-care (01) ==
LOC: N.EDINP 09:38 → N.ED 09:38 → N.3E 14:28
PROVIDERS: ADMIT Family Medicine; ATTEND Family Medicine

== ENCOUNTER 2018-10-30 10:54 | Inpatient (IN) ==
[2018-10-30] MEDS ORDERED: ONDANSETRON 4 MG/2 ML VIAL IV PRN (15:43)
[2018-10-30] MEDS ORDERED: ACETAMINOPHEN 325 MG TABLET PO PRN (15:43)
[2018-10-30] MEDS ORDERED: traZODone 50 MG TABLET PO PRN (15:46)
[2018-10-30] MEDS ORDERED: LACTULOSE 20 GM/30 ML UDCUP PO PRN (15:46)
[2018-10-30] MEDS: FUROSEMIDE 40 MG/4 ML VIAL IV SCH (17:18)
[2018-10-30] MEDS ORDERED: ALBUTEROL 2.5 MG/3 ML NEB RESP TX PRN (19:00)
[2018-10-30] MEDS: PROPRANOLOL 10 MG TABLET PO SCH (20:28)
[2018-10-30] MEDS: POTASSIUM CHLORIDE 20 MEQ TABLET PO SCH (20:28)
[2018-10-30] MEDS: DOCUSATE SODIUM 100 MG CAPSULE PO SCH (20:28)
[2018-10-30] MEDS: RIFAXIMIN 550 MG TABLET PO SCH (20:28)
[2018-10-30] MEDS: MAGNESIUM CHLORIDE 64 MG TABLET PO SCH (20:28)
[2018-10-31 05:43] LABS: Basophils % 0.5 % (0.0-0.8); Eosinophils # 0.1 10*3/uL (0.0-0.87); Hematocrit 32.6 VOL% (42.0-52.0); Hemoglobin 10.4 GM/DL (14.0-18.0); Immature Granulocytes % 0.5 %; Immature Granulocytes Absolute 0.02 #; Lymphocytes # 0.4 10*3/uL (1.4-4.0); Mean Corpuscular HGB Conc 31.9 GM/DL (32-36); Mean Corpuscular Volume 115.6 FL (87-102); Mean Platelet Volume 9.5 FL (9.6-12.0); Monocytes % 10.8 % (1.7-12.7); Neutrophils % 74.2 % (38.7-73.9); Platelet Count 48 T/CUMM (130-400); Red Blood Count 2.82 MC/CUMM (3.8-5.5); Red Cell Distribution Width 15.3 % (9.3-17.3)
[2018-10-31 06:10] LABS: Calcium 7.5 MG/DL (8.5-10.1); Osmolality,Calculated 268.1 MOS/KG (273-304)
[2018-10-31 06:15] LABS: Albumin 1.8 G/DL (3.4-5.0); Bilirubin,Direct 3.04 MG/DL (0.0-0.20); Bilirubin,Indirect 3.5 MG/DL (0.0-1.0); Bilirubin,Total 6.5 MG/DL (0.2-1.0); Total Protein 6.5 G/DL (6.4-8.3)
[2018-10-31] MEDS ORDERED: LACTULOSE 20 GM/30 ML UDCUP PO PRN (07:13)
[2018-10-31] MEDS ORDERED: MAGNESIUM SULF RIDER 2 GM in PREMIX 1 EACH IV PRN (07:45)
[2018-10-31] MEDS ORDERED: PANTOPRAZOLE 40 MG TABLET PO SCH (09:00)
[2018-10-31] MEDS ORDERED: SPIRONOLACTONE 100 MG TABLET PO SCH (09:00)
[2018-10-31] MEDS ORDERED: VENLAFAXINE XR 37.5 MG CAPSULE PO SCH (09:00)
[2018-10-31] MEDS ORDERED: FUROSEMIDE 20 MG/2 ML VIAL IV SCH (09:00)
[2018-10-31] MEDS: MAGNESIUM CHLORIDE 64 MG TABLET PO SCH ×3 (09:21→21:02)
[2018-10-31] MEDS: DOCUSATE SODIUM 100 MG CAPSULE PO SCH ×2 (09:21→21:02)
[2018-10-31] MEDS: RIFAXIMIN 550 MG TABLET PO SCH ×2 (09:22→21:02)
[2018-10-31] MEDS: PROPRANOLOL 10 MG TABLET PO SCH ×2 (09:22→21:02)
[2018-10-31] MEDS: FERROUS SULFATE 325 MG TABLET PO SCH (09:24)
[2018-10-31] MEDS: POTASSIUM CHLORIDE 20 MEQ TABLET PO SCH ×3 (09:24→21:02)
[2018-10-31] MEDS: SPIRONOLACTONE 100 MG TABLET PO SCH (09:29)
[2018-10-31] MEDS: FUROSEMIDE 40 MG/4 ML VIAL IV SCH ×2 (11:37→15:57)
[2018-10-31] MEDS: cefTRIAXone 1,000 MG in SYRINGE 1 EACH IV SCH (15:52)
[2018-10-31 16:08] LABS: Apearance,Urine CLEAR (Clear); Bilirubin,Urine Negative (Negative); Blood, Urine Moderate mg/dL (Negative); Glucose,Urine (UA) Negative (Negative); Ketones,Urine Negative (Negative); Nitrite,Urine Negative (Negative); Protein,Urine Negative; RBC,Urine 3 /HPF (0-4); Urine Color Yellow (Yellow); Urine Specific Gravity 1.006 (1.001-1.035); WBC,Urine 2 /HPF (0-6)
[2018-10-31] MEDS: MAGNESIUM SULF RIDER 4 GM in PREMIX 1 EACH IV PRN (17:50)
[2018-11-01 05:23] LABS: Basophils % 0.7 % (0.0-0.8); Eosinophils # 0.1 10*3/uL (0.0-0.87); Eosinophils % 2.6 % (0.00-10.9); Hematocrit 31.4 VOL% (42.0-52.0); Hemoglobin 10.3 GM/DL (14.0-18.0); Immature Granulocytes % 0.7 %; Immature Granulocytes Absolute 0.03 #; Lymphocytes # 0.5 10*3/uL (1.4-4.0); Lymphocytes % 11.8 % (21.2-54.2); Mean Corpuscular HGB Conc 32.8 GM/DL (32-36); Mean Corpuscular Volume 112.9 FL (87-102); Mean Platelet Volume 9.6 FL (9.6-12.0); Neutrophils % 65.2 % (38.7-73.9); Platelet Count 58 T/CUMM (130-400); Red Blood Count 2.78 MC/CUMM (3.8-5.5); Red Cell Distribution Width 15.2 % (9.3-17.3); White Blood Count 4.6 T/CUMM (4-12)
[2018-11-01 05:51] LABS: Calcium 7.3 MG/DL (8.5-10.1); Osmolality,Calculated 267.2 MOS/KG (273-304)
[2018-11-01 05:54] LABS: Band Neutrophils 1 % (0-10); Eosinophils 2 % (0-10); Lymphocytes 10 % (20-55); Segmented Neutrophils 75 % (50-85); Total Cells Counted 100
[2018-11-01 05:55] LABS: Anisocytosis 1+
[2018-11-01 05:56] LABS: Hypochromasia 1+; Platelet Estimate Decreased
[2018-11-01 06:20] LABS: Albumin 1.6 G/DL (3.4-5.0); Bilirubin,Direct 2.09 MG/DL (0.0-0.20); Bilirubin,Indirect 2.5 MG/DL (0.0-1.0); Bilirubin,Total 4.6 MG/DL (0.2-1.0); Total Protein 6.1 G/DL (6.4-8.3)
[2018-11-01] MEDS: SPIRONOLACTONE 100 MG TABLET PO SCH (08:28)
[2018-11-01] MEDS: MAGNESIUM CHLORIDE 64 MG TABLET PO SCH ×3 (08:29→20:39)
[2018-11-01] MEDS: RIFAXIMIN 550 MG TABLET PO SCH ×2 (08:29→20:39)
[2018-11-01] MEDS: DOCUSATE SODIUM 100 MG CAPSULE PO SCH ×2 (08:29→20:39)
[2018-11-01] MEDS: POTASSIUM CHLORIDE 20 MEQ TABLET PO SCH ×3 (08:29→20:39)
[2018-11-01] MEDS: PROPRANOLOL 10 MG TABLET PO SCH ×2 (08:30→20:39)
[2018-11-01] MEDS: FERROUS SULFATE 325 MG TABLET PO SCH (08:30)
[2018-11-01] MEDS: FUROSEMIDE 40 MG/4 ML VIAL IV SCH ×2 (08:33→15:10)
[2018-11-01] MEDS: cefTRIAXone 1,000 MG in SYRINGE 1 EACH IV SCH (12:57)
[2018-11-02] MEDS: FUROSEMIDE 40 MG/4 ML VIAL IV SCH ×2 (08:57→15:52)
[2018-11-02] MEDS: PROPRANOLOL 10 MG TABLET PO SCH ×2 (08:59→20:37)
[2018-11-02] MEDS: DOCUSATE SODIUM 100 MG CAPSULE PO SCH ×2 (08:59→20:37)
[2018-11-02] MEDS: MAGNESIUM CHLORIDE 64 MG TABLET PO SCH ×3 (09:00→20:37)
[2018-11-02] MEDS: POTASSIUM CHLORIDE 20 MEQ TABLET PO SCH ×3 (09:00→20:37)
[2018-11-02] MEDS: FERROUS SULFATE 325 MG TABLET PO SCH (09:00)
[2018-11-02] MEDS: SPIRONOLACTONE 100 MG TABLET PO SCH (09:00)
[2018-11-02] MEDS: RIFAXIMIN 550 MG TABLET PO SCH ×2 (09:03→20:37)
[2018-11-02] MEDS: cefTRIAXone 1,000 MG in SYRINGE 1 EACH IV SCH (12:57)
[2018-11-02] MEDS: DEXTROMETHORPHAN ER 6 MG/ML 90 ML/BOTTLE PO PRN ×2 (13:08→21:37)
[2018-11-03] MEDS: FERROUS SULFATE 325 MG TABLET PO SCH (08:38)
[2018-11-03] MEDS: PROPRANOLOL 10 MG TABLET PO SCH (08:38)
[2018-11-03] MEDS: SPIRONOLACTONE 100 MG TABLET PO SCH (08:38)
[2018-11-03] MEDS: FUROSEMIDE 40 MG/4 ML VIAL IV SCH ×2 (08:38→18:37)
[2018-11-03] MEDS: MAGNESIUM CHLORIDE 64 MG TABLET PO SCH ×2 (08:39→15:31)
[2018-11-03] MEDS: DOCUSATE SODIUM 100 MG CAPSULE PO SCH (08:39)
[2018-11-03] MEDS: RIFAXIMIN 550 MG TABLET PO SCH (08:39)
[2018-11-03] MEDS: POTASSIUM CHLORIDE 20 MEQ TABLET PO SCH ×2 (08:39→15:31)
[2018-11-03 09:51] LABS: Eosinophils # 0.1 10*3/uL (0.0-0.87); Eosinophils % 2.6 % (0.00-10.9); Hematocrit 32.6 VOL% (42.0-52.0); Hemoglobin 10.5 GM/DL (14.0-18.0); Immature Granulocytes % 1.3 %; Immature Granulocytes Absolute 0.05 #; Lymphocytes # 0.5 10*3/uL (1.4-4.0); Lymphocytes % 13.2 % (21.2-54.2); Mean Corpuscular HGB Conc 32.2 GM/DL (32-36); Mean Corpuscular Volume 113.6 FL (87-102); Mean Platelet Volume 9.4 FL (9.6-12.0); Monocytes % 25.3 % (1.7-12.7); Neutrophils % 56.6 % (38.7-73.9); Red Blood Count 2.87 MC/CUMM (3.8-5.5); Red Cell Distribution Width 15.2 % (9.3-17.3); White Blood Count 3.9 T/CUMM (4-12)
[2018-11-03 09:57] LABS: Platelet Count 91 T/CUMM (130-400)
[2018-11-03 10:13] LABS: Band Neutrophils 1 % (0-10); Eosinophils 4 % (0-10); Hypochromasia 1+; Lymphocytes 11 % (20-55); Platelet Estimate Decreased; Segmented Neutrophils 69 % (50-85); Total Cells Counted 100
[2018-11-03 10:17] LABS: Calcium 7.9 MG/DL (8.5-10.1); Osmolality,Calculated 268.1 MOS/KG (273-304)
[2018-11-03 10:29] LABS: Albumin 1.8 G/DL (3.4-5.0); Bilirubin,Direct 2.26 MG/DL (0.0-0.20); Bilirubin,Indirect 2.9 MG/DL (0.0-1.0); Bilirubin,Total 5.2 MG/DL (0.2-1.0); Total Protein 6.5 G/DL (6.4-8.3)
[2018-11-03] MEDS: MAGNESIUM SULF RIDER 4 GM in PREMIX 1 EACH IV PRN (10:43)
[2018-11-03] MEDS: cefTRIAXone 1,000 MG in SYRINGE 1 EACH IV SCH (15:31)
[2018-11-03 16:02] VITALS: BP 117/60
[2018-11-03] MEDS ORDERED: cephALEXin 500 MG CAPSULE PO SCH (21:00)
[2018-11-03] MEDS ORDERED: MAGNESIUM OXIDE 400 MG TABLET PO SCH (21:00)
== END 2018-11-03 17:45 | disposition home or self-care (01) | DRG 432 ==
LOC: N.2E
PROVIDERS: ADMIT Family Medicine; ATTEND Family Medicine

== ENCOUNTER 2018-11-17 14:59 | Inpatient (IN) ==
[2018-11-17 16:07] LABS: Basophils % 0.2 % (0.0-0.8); Eosinophils % 0.1 % (0.00-10.9); Hematocrit 32.5 VOL% (42.0-52.0); Hemoglobin 10.7 GM/DL (14.0-18.0); Immature Granulocytes % 0.5 %; Immature Granulocytes Absolute 0.06 #; Lymphocytes # 0.3 10*3/uL (1.4-4.0); Lymphocytes % 2.5 % (21.2-54.2); Mean Corpuscular HGB Conc 32.9 GM/DL (32-36); Mean Platelet Volume 9.5 FL (9.6-12.0); Monocytes % 3.7 % (1.7-12.7); Platelet Count 98 T/CUMM (130-400); Red Blood Count 2.85 MC/CUMM (3.8-5.5); Red Cell Distribution Width 15.9 % (9.3-17.3); White Blood Count 12.2 T/CUMM (4-12)
[2018-11-17 16:26] LABS: Calcium 8.2 MG/DL (8.5-10.1); Osmolality,Calculated 265.4 MOS/KG (273-304); Total Protein 7.2 G/DL (6.4-8.3)
[2018-11-17 16:31] LABS: Bilirubin,Total 13.5 MG/DL (0.2-1.0)
[2018-11-17] MEDS ORDERED: ALBUTEROL/IPRATROPIUM 3 ML NEB RESP TX STA (18:54)
[2018-11-17] MEDS ORDERED: FUROSEMIDE 100 MG/10 ML VIAL IV STA (18:54)
[2018-11-17] MEDS ORDERED: ONDANSETRON 4 MG/2 ML VIAL IV STA (18:54)
[2018-11-17] MEDS ORDERED: PIPERACILLIN/TAZOBACTAM 3,375 MG in SODIUM CHLORIDE 0.9% 100 ML IV STA (19:55)
[2018-11-17 22:03] LABS: Anisocytosis 1+; Band Neutrophils 8 % (0-10); Lymphocytes 4 % (20-55); Platelet Estimate Decreased; Segmented Neutrophils 88 % (50-85); Total Cells Counted 100
[2018-11-17] MEDS ORDERED: ACETAMINOPHEN 325 MG TABLET PO PRN (22:25)
[2018-11-17] MEDS: DOCUSATE SODIUM 100 MG CAPSULE PO SCH (22:37)
[2018-11-17] MEDS: SODIUM CHLORIDE 0.9% 1,000 ML IV SCH (22:38)
[2018-11-18] MEDS: ALBUTEROL/IPRATROPIUM 3 ML NEB RESP TX SCH ×7 (00:06→22:35)
[2018-11-18 01:08] LABS: Basophils % 0.1 % (0.0-0.8); Eosinophils # 0.1 10*3/uL (0.0-0.87); Eosinophils % 0.7 % (0.00-10.9); Hematocrit 28.8 VOL% (42.0-52.0); Hemoglobin 9.1 GM/DL (14.0-18.0); Immature Granulocytes % 0.6 %; Immature Granulocytes Absolute 0.05 #; Lymphocytes # 0.5 10*3/uL (1.4-4.0); Lymphocytes % 5.5 % (21.2-54.2); Mean Corpuscular HGB Conc 31.6 GM/DL (32-36); Mean Corpuscular Volume 116.1 FL (87-102); Mean Platelet Volume 9.7 FL (9.6-12.0); NRBC # 0.02 10*3/uL; Neutrophils % 85.1 % (38.7-73.9); Platelet Count 68 T/CUMM (130-400); Red Blood Count 2.48 MC/CUMM (3.8-5.5); White Blood Count 8.7 T/CUMM (4-12)
[2018-11-18 01:21] LABS: Albumin 1.8 G/DL (3.4-5.0); Calcium 7.8 MG/DL (8.5-10.1); Osmolality,Calculated 269.2 MOS/KG (273-304); Risk Ratio 1.82; Total Protein 6.2 G/DL (6.4-8.3); VLDL CHOLESTEROL 12.6 MG/DL
[2018-11-18 01:27] LABS: Bilirubin,Total 12.5 MG/DL (0.2-1.0)
[2018-11-18 01:31] LABS: Band Neutrophils 2 % (0-10); Eosinophils 1 % (0-10); Lymphocytes 3 % (20-55); Segmented Neutrophils 90 % (50-85); Total Cells Counted 100
[2018-11-18 01:32] LABS: Anisocytosis Slight; Macrocytosis Slight; Polychromasia Slight
[2018-11-18 01:33] LABS: Ovalocytes Slight; Platelet Estimate Decreased
[2018-11-18] MEDS: PIPERACILLIN/TAZOBACTAM 3,375 MG in SODIUM CHLORIDE 0.9% 100 ML IV SCH ×3 (05:30→21:24)
[2018-11-18] MEDS ORDERED: MAGNESIUM SULF RIDER 4 GM in PREMIX 1 EACH IV PRN (06:48)
[2018-11-18] MEDS ORDERED: ACETAMINOPHEN 500 MG TABLET PO PRN (06:52)
[2018-11-18 08:25] LABS: PT Patient Result 21.2 SECS; Partial Thromboplastin Time 40.9 SECS (0-40)
[2018-11-18] MEDS ORDERED: SPIRONOLACTONE 50 MG TABLET PO SCH (09:00)
[2018-11-18] MEDS: LACTULOSE 20 GM/30 ML UDCUP PO SCH ×2 (09:42→21:22)
[2018-11-18] MEDS: RIFAXIMIN 550 MG TABLET PO SCH ×2 (09:44→21:22)
[2018-11-18] MEDS: POTASSIUM CHLORIDE 20 MEQ TABLET PO SCH ×3 (09:44→21:22)
[2018-11-18] MEDS: DOCUSATE SODIUM 100 MG CAPSULE PO SCH ×2 (09:44→21:22)
[2018-11-18] MEDS: MAGNESIUM CHLORIDE 64 MG TABLET PO SCH ×2 (09:44→21:22)
[2018-11-18] MEDS: SPIRONOLACTONE 100 MG TABLET PO SCH (09:44)
[2018-11-18] MEDS: FUROSEMIDE 40 MG/4 ML VIAL IV SCH ×2 (09:44→17:56)
[2018-11-18] MEDS: PANTOPRAZOLE 40 MG TABLET PO SCH (09:44)
[2018-11-18] MEDS ORDERED: MORPHINE 4 MG/1 ML VIAL IV ONE (17:35)
[2018-11-18 19:42] LABS: Apearance,Urine CLEAR (Clear); Bilirubin,Urine Negative (Negative); Blood, Urine Moderate mg/dL (Negative); Glucose,Urine (UA) Negative (Negative); Hyaline Casts,Urine 1 /LPF (0-3); Ketones,Urine Negative (Negative); Mucus,Urine Occasional /LPF (Occasional); Nitrite,Urine Negative (Negative); Protein,Urine Negative; RBC,Urine <1 /HPF (0-4); Urine Color Yellow (Yellow); Urine Urobilinogen < 2.0 EU/DL (0.2-1.0); WBC,Urine 1 /HPF (0-6)
[2018-11-18 23:47] LABS: Basophils % 0.2 % (0.0-0.8); Eosinophils # 0.1 10*3/uL (0.0-0.87); Eosinophils % 1.3 % (0.00-10.9); Hemoglobin 8.5 GM/DL (14.0-18.0); Immature Granulocytes % 0.7 %; Immature Granulocytes Absolute 0.07 #; Lymphocytes # 0.4 10*3/uL (1.4-4.0); Lymphocytes % 3.6 % (21.2-54.2); Mean Corpuscular HGB Conc 32.7 GM/DL (32-36); Mean Corpuscular Volume 115.6 FL (87-102); Mean Platelet Volume 10.1 FL (9.6-12.0); Monocytes % 9.7 % (1.7-12.7); Neutrophils % 84.5 % (38.7-73.9); Platelet Count 64 T/CUMM (130-400); Red Blood Count 2.25 MC/CUMM (3.8-5.5); Red Cell Distribution Width 15.8 % (9.3-17.3)
[2018-11-19 00:57] LABS: Anisocytosis 1+; Hypochromasia Slight; Lymphocytes 4 % (20-55); Microcytosis Slight; Platelet Estimate Decreased; Segmented Neutrophils 87 % (50-85); Total Cells Counted 100
[2018-11-19] MEDS: ALBUTEROL/IPRATROPIUM 3 ML NEB RESP TX SCH ×6 (02:34→23:45)
[2018-11-19 04:37] LABS: Albumin 1.5 G/DL (3.4-5.0); Bilirubin,Total 7.4 MG/DL (0.2-1.0); Calcium 7.4 MG/DL (8.5-10.1); Osmolality,Calculated 266.5 MOS/KG (273-304); Total Protein 5.9 G/DL (6.4-8.3)
[2018-11-19] MEDS: PIPERACILLIN/TAZOBACTAM 3,375 MG in SODIUM CHLORIDE 0.9% 100 ML IV SCH ×3 (05:10→21:44)
[2018-11-19 07:22] LABS: Lymphocytes,Pleural Fluid 1 %; Neutrophils,Pleural Fluid 99 %
[2018-11-19 07:23] LABS: RBC,Pleural Fluid 41771 T/CUMM
[2018-11-19] MEDS: FUROSEMIDE 40 MG/4 ML VIAL IV SCH ×2 (10:02→17:20)
[2018-11-19] MEDS: RIFAXIMIN 550 MG TABLET PO SCH ×2 (10:09→21:34)
[2018-11-19] MEDS: MAGNESIUM CHLORIDE 64 MG TABLET PO SCH ×2 (10:09→21:34)
[2018-11-19] MEDS: DOCUSATE SODIUM 100 MG CAPSULE PO SCH ×2 (10:10→21:35)
[2018-11-19] MEDS: SPIRONOLACTONE 100 MG TABLET PO SCH (10:10)
[2018-11-19] MEDS: PANTOPRAZOLE 40 MG TABLET PO SCH (10:11)
[2018-11-19] MEDS: LACTULOSE 20 GM/30 ML UDCUP PO SCH ×2 (10:12→21:35)
[2018-11-19] MEDS: POTASSIUM CHLORIDE 20 MEQ TABLET PO SCH ×3 (10:12→21:35)
[2018-11-19] MEDS: oxyCODONE/ACETAMINOPHEN 5-325 MG TABLET PO PRN ×2 (14:26→21:32)
[2018-11-19] MEDS: SODIUM CHLORIDE 0.9% 1,000 ML IV SCH (21:31)
[2018-11-19] MEDS: traZODone 50 MG TABLET PO PRN (21:45)
[2018-11-20] MEDS: SODIUM CHLORIDE 0.9% 1,000 ML IV SCH (02:09)
[2018-11-20] MEDS: ONDANSETRON 4 MG/2 ML VIAL IV PRN ×2 (02:15→21:30)
[2018-11-20] MEDS: ALBUTEROL/IPRATROPIUM 3 ML NEB RESP TX SCH ×5 (02:40→19:48)
[2018-11-20 04:36] LABS: Basophils % 0.3 % (0.0-0.8); Eosinophils # 0.2 10*3/uL (0.0-0.87); Eosinophils % 3.1 % (0.00-10.9); Hematocrit 25.3 VOL% (42.0-52.0); Hemoglobin 8.3 GM/DL (14.0-18.0); Immature Granulocytes % 0.9 %; Immature Granulocytes Absolute 0.05 #; Lymphocytes # 0.4 10*3/uL (1.4-4.0); Lymphocytes % 6.2 % (21.2-54.2); Mean Corpuscular HGB Conc 32.8 GM/DL (32-36); Mean Corpuscular Volume 115.5 FL (87-102); Mean Platelet Volume 9.9 FL (9.6-12.0); Monocytes % 12.5 % (1.7-12.7); Platelet Count 57 T/CUMM (130-400); Red Blood Count 2.19 MC/CUMM (3.8-5.5); Red Cell Distribution Width 15.9 % (9.3-17.3); White Blood Count 5.8 T/CUMM (4-12)
[2018-11-20 05:01] LABS: Albumin 1.7 G/DL (3.4-5.0); Bilirubin,Direct 3.12 MG/DL (0.0-0.20); Bilirubin,Indirect 2.7 MG/DL (0.0-1.0); Bilirubin,Total 5.8 MG/DL (0.2-1.0); Total Protein 6.2 G/DL (6.4-8.3)
[2018-11-20 05:04] LABS: Band Neutrophils 1 % (0-10); Eosinophils 5 % (0-10); Hypochromasia 1+; Lymphocytes 2 % (20-55); Platelet Estimate Decreased; Segmented Neutrophils 82 % (50-85); Total Cells Counted 100
[2018-11-20 05:05] LABS: Microcytosis Slight
[2018-11-20] MEDS: PIPERACILLIN/TAZOBACTAM 3,375 MG in SODIUM CHLORIDE 0.9% 100 ML IV SCH ×3 (05:09→21:40)
[2018-11-20] MEDS: FUROSEMIDE 40 MG/4 ML VIAL IV SCH ×2 (08:56→15:14)
[2018-11-20] MEDS: LACTULOSE 20 GM/30 ML UDCUP PO SCH ×2 (09:34→21:56)
[2018-11-20] MEDS: POTASSIUM CHLORIDE 20 MEQ TABLET PO SCH ×3 (09:34→21:36)
[2018-11-20] MEDS: RIFAXIMIN 550 MG TABLET PO SCH ×2 (09:35→21:34)
[2018-11-20] MEDS: MAGNESIUM CHLORIDE 64 MG TABLET PO SCH ×2 (09:35→21:34)
[2018-11-20] MEDS: PANTOPRAZOLE 40 MG TABLET PO SCH (09:35)
[2018-11-20] MEDS: oxyCODONE/ACETAMINOPHEN 5-325 MG TABLET PO PRN ×2 (09:37→21:36)
[2018-11-20 10:53] LABS: Calcium 7.6 MG/DL (8.5-10.1); Osmolality,Calculated 263.7 MOS/KG (273-304)
[2018-11-20] MEDS: DOCUSATE SODIUM 100 MG CAPSULE PO SCH ×2 (12:29→21:33)
[2018-11-20] MEDS: SPIRONOLACTONE 100 MG TABLET PO SCH (12:33)
[2018-11-20 15:02] LABS: INR 1.7; PT Patient Result 18.1 SECS
[2018-11-20] MEDS ORDERED: KETOROLAC 30 MG/1 ML VIAL IV ONE (18:07)
[2018-11-20] MEDS: traZODone 50 MG TABLET PO PRN (21:34)
[2018-11-20] MEDS ORDERED: BISACODYL 5 MG TABLET ONE (23:07)
[2018-11-21] MEDS: ALBUTEROL/IPRATROPIUM 3 ML NEB RESP TX SCH ×7 (00:47→23:08)
[2018-11-21] MEDS: PIPERACILLIN/TAZOBACTAM 3,375 MG in SODIUM CHLORIDE 0.9% 100 ML IV SCH ×3 (05:42→22:12)
[2018-11-21] MEDS: ONDANSETRON 4 MG/2 ML VIAL IV PRN ×2 (05:47→15:59)
[2018-11-21 05:50] LABS: Basophils # 0.1 10*3/uL (0.0-0.2); Basophils % 0.7 % (0.0-0.8); Eosinophils # 0.4 10*3/uL (0.0-0.87); Eosinophils % 3.9 % (0.00-10.9); Hematocrit 26.1 VOL% (42.0-52.0); Hemoglobin 8.6 GM/DL (14.0-18.0); Immature Granulocytes % 2.9 %; Immature Granulocytes Absolute 0.31 #; Lymphocytes # 0.7 10*3/uL (1.4-4.0); Lymphocytes % 6.1 % (21.2-54.2); Mean Platelet Volume 10.2 FL (9.6-12.0); Monocytes % 14.8 % (1.7-12.7); Neutrophils % 71.6 % (38.7-73.9); Red Blood Count 2.23 MC/CUMM (3.8-5.5); Red Cell Distribution Width 15.9 % (9.3-17.3); White Blood Count 10.6 T/CUMM (4-12)
[2018-11-21] MEDS: SODIUM CHLORIDE 0.9% 1,000 ML IV SCH (05:51)
[2018-11-21 05:52] LABS: INR 1.6; PT Patient Result 17.3 SECS
[2018-11-21 05:59] LABS: Platelet Count 91 T/CUMM (130-400)
[2018-11-21 06:05] LABS: Albumin 1.8 G/DL (3.4-5.0); Bilirubin,Direct 3.41 MG/DL (0.0-0.20); Bilirubin,Indirect 3.5 MG/DL (0.0-1.0); Bilirubin,Total 6.9 MG/DL (0.2-1.0); Calcium 7.7 MG/DL (8.5-10.1); Osmolality,Calculated 263.8 MOS/KG (273-304); Total Protein 6.8 G/DL (6.4-8.3)
[2018-11-21 06:08] LABS: Hypochromasia 1+
[2018-11-21 06:09] LABS: Microcytosis Slight; Platelet Estimate Decreased
[2018-11-21] MEDS: PANTOPRAZOLE 40 MG TABLET PO SCH (08:12)
[2018-11-21] MEDS: MAGNESIUM CHLORIDE 64 MG TABLET PO SCH ×2 (08:12→22:10)
[2018-11-21] MEDS: FUROSEMIDE 40 MG/4 ML VIAL IV SCH ×2 (08:13→15:59)
[2018-11-21] MEDS: SPIRONOLACTONE 100 MG TABLET PO SCH (08:13)
[2018-11-21] MEDS: RIFAXIMIN 550 MG TABLET PO SCH ×2 (08:13→22:11)
[2018-11-21] MEDS: POTASSIUM CHLORIDE 20 MEQ TABLET PO SCH ×3 (08:13→22:11)
[2018-11-21] MEDS: LACTULOSE 20 GM/30 ML UDCUP PO SCH ×2 (08:13→22:10)
[2018-11-21] MEDS: DOCUSATE SODIUM 100 MG CAPSULE PO SCH ×2 (08:13→22:11)
[2018-11-21] MEDS: oxyCODONE/ACETAMINOPHEN 5-325 MG TABLET PO PRN (11:15)
[2018-11-21] MEDS: traZODone 50 MG TABLET PO PRN (23:13)
[2018-11-22] MEDS: ALBUTEROL/IPRATROPIUM 3 ML NEB RESP TX SCH ×6 (02:56→22:25)
[2018-11-22] MEDS: SODIUM CHLORIDE 0.9% 1,000 ML IV SCH (03:25)
[2018-11-22] MEDS: ONDANSETRON 4 MG/2 ML VIAL IV PRN (05:59)
[2018-11-22 06:00] LABS: Basophils # 0.1 10*3/uL (0.0-0.2); Basophils % 0.5 % (0.0-0.8); Eosinophils # 0.4 10*3/uL (0.0-0.87); Eosinophils % 3.9 % (0.00-10.9); Hematocrit 20.5 VOL% (42.0-52.0); Hemoglobin 6.6 GM/DL (14.0-18.0); Immature Granulocytes % 7.5 %; Lymphocytes # 0.8 10*3/uL (1.4-4.0); Mean Corpuscular HGB Conc 32.2 GM/DL (32-36); Mean Corpuscular Volume 116.5 FL (87-102); Mean Platelet Volume 9.5 FL (9.6-12.0); Monocytes % 16.6 % (1.7-12.7); NRBC # 0.05 10*3/uL; Neutrophils % 64.5 % (38.7-73.9); Platelet Count 99 T/CUMM (130-400); Red Blood Count 1.76 MC/CUMM (3.8-5.5); Red Cell Distribution Width 16.2 % (9.3-17.3); White Blood Count 10.7 T/CUMM (4-12)
[2018-11-22] MEDS: PIPERACILLIN/TAZOBACTAM 3,375 MG in SODIUM CHLORIDE 0.9% 100 ML IV SCH ×3 (06:00→20:48)
[2018-11-22 06:29] LABS: Albumin 1.6 G/DL (3.4-5.0); Bilirubin,Direct 3.26 MG/DL (0.0-0.20); Bilirubin,Total 5.3 MG/DL (0.2-1.0); Calcium 7.6 MG/DL (8.5-10.1); Osmolality,Calculated 267.8 MOS/KG (273-304); Total Protein 5.8 G/DL (6.4-8.3)
[2018-11-22 06:42] LABS: Basophils # 0.1 10*3/uL (0.0-0.2); Basophils % 0.5 % (0.0-0.8); Eosinophils # 0.5 10*3/uL (0.0-0.87); Eosinophils % 3.7 % (0.00-10.9); Hemoglobin 7.6 GM/DL (14.0-18.0); Immature Granulocytes % 8.7 %; Immature Granulocytes Absolute 1.26 #; Lymphocytes % 6.8 % (21.2-54.2); Mean Corpuscular HGB Conc 31.7 GM/DL (32-36); Mean Corpuscular Volume 118.8 FL (87-102); Mean Platelet Volume 9.6 FL (9.6-12.0); Monocytes % 15.4 % (1.7-12.7); Neutrophils % 64.9 % (38.7-73.9); Platelet Count 125 T/CUMM (130-400); Red Blood Count 2.02 MC/CUMM (3.8-5.5); Red Cell Distribution Width 16.5 % (9.3-17.3); White Blood Count 14.5 T/CUMM (4-12)
[2018-11-22 06:51] LABS: Anisocytosis 1+; Band Neutrophils 2 % (0-10); Lymphocytes 8 % (20-55); Metamyelocytes 2 %; Platelet Estimate Decreased; Segmented Neutrophils 70 % (50-85); Total Cells Counted 100
[2018-11-22 07:44] LABS: Eosinophils 6 % (0-10); Lymphocytes 8 % (20-55); Metamyelocytes 1 %; Myelocytes 2 %; Nucleated Red Blood Cells 1 (0-5); Segmented Neutrophils 72 % (50-85); Total Cells Counted 100
[2018-11-22 07:45] LABS: Hypochromasia 1+
[2018-11-22 07:46] LABS: Anisocytosis 1+; Macrocytosis 1+; Platelet Estimate Adequate
[2018-11-22] MEDS: FUROSEMIDE 40 MG/4 ML VIAL IV SCH ×2 (09:09→17:30)
[2018-11-22] MEDS: LACTULOSE 20 GM/30 ML UDCUP PO SCH ×2 (09:10→20:53)
[2018-11-22] MEDS: SPIRONOLACTONE 100 MG TABLET PO SCH (09:10)
[2018-11-22] MEDS: DOCUSATE SODIUM 100 MG CAPSULE PO SCH ×2 (09:10→20:50)
[2018-11-22] MEDS: POTASSIUM CHLORIDE 20 MEQ TABLET PO SCH ×3 (09:10→20:49)
[2018-11-22] MEDS: RIFAXIMIN 550 MG TABLET PO SCH ×2 (09:10→20:50)
[2018-11-22] MEDS: PANTOPRAZOLE 40 MG TABLET PO SCH (09:10)
[2018-11-22] MEDS: MAGNESIUM CHLORIDE 64 MG TABLET PO SCH ×2 (09:10→20:49)
[2018-11-22] MEDS: MAGNESIUM SULF RIDER 2 GM in PREMIX 1 EACH IV PRN (18:44)
[2018-11-22] MEDS: ALBUMIN 25% 25 GM in PREMIX 1 EACH IV SCH (20:00)
[2018-11-22] MEDS: oxyCODONE/ACETAMINOPHEN 5-325 MG TABLET PO PRN (20:47)
[2018-11-22] MEDS: traZODone 50 MG TABLET PO PRN (20:49)
[2018-11-23] MEDS: ALBUTEROL/IPRATROPIUM 3 ML NEB RESP TX SCH ×5 (03:25→20:08)
[2018-11-23 04:29] LABS: Basophils # 0.1 10*3/uL (0.0-0.2); Basophils % 0.6 % (0.0-0.8); Eosinophils # 0.6 10*3/uL (0.0-0.87); Eosinophils % 4.9 % (0.00-10.9); Hematocrit 21.5 VOL% (42.0-52.0); Hemoglobin 6.7 GM/DL (14.0-18.0); Immature Granulocytes % 12.7 %; Immature Granulocytes Absolute 1.44 #; Lymphocytes # 1.1 10*3/uL (1.4-4.0); Lymphocytes % 10.1 % (21.2-54.2); Mean Corpuscular HGB Conc 31.2 GM/DL (32-36); Mean Corpuscular Volume 118.8 FL (87-102); Mean Platelet Volume 9.2 FL (9.6-12.0); Monocytes % 16.4 % (1.7-12.7); NRBC # 0.11 10*3/uL; Neutrophils % 55.3 % (38.7-73.9); Platelet Count 126 T/CUMM (130-400); Red Blood Count 1.81 MC/CUMM (3.8-5.5); Red Cell Distribution Width 16.9 % (9.3-17.3); White Blood Count 11.3 T/CUMM (4-12)
[2018-11-23 04:51] LABS: Albumin 1.6 G/DL (3.4-5.0); Bilirubin,Direct 2.79 MG/DL (0.0-0.20); Bilirubin,Indirect 2.3 MG/DL (0.0-1.0); Bilirubin,Total 5.1 MG/DL (0.2-1.0); Calcium 7.7 MG/DL (8.5-10.1); Osmolality,Calculated 261.9 MOS/KG (273-304)
[2018-11-23 04:56] LABS: Eosinophils 3 % (0-10); Lymphocytes 12 % (20-55); Myelocytes 4 %; Segmented Neutrophils 78 % (50-85); Total Cells Counted 100
[2018-11-23 04:57] LABS: Anisocytosis 1+; Hypochromasia 1+; Microcytosis 1+; Platelet Estimate Decreased
[2018-11-23] MEDS: PIPERACILLIN/TAZOBACTAM 3,375 MG in SODIUM CHLORIDE 0.9% 100 ML IV SCH ×3 (06:32→20:34)
[2018-11-23] MEDS: ALBUMIN 25% 25 GM in PREMIX 1 EACH IV SCH ×3 (06:33→20:39)
[2018-11-23] MEDS: SODIUM CHLORIDE 0.9% 1,000 ML IV SCH ×2 (06:42→20:33)
[2018-11-23] MEDS ORDERED: SODIUM CHLORIDE 0.9% 1,000 ML IV PRN ×2 (07:37→12:27)
[2018-11-23] MEDS: SPIRONOLACTONE 100 MG TABLET PO SCH (08:33)
[2018-11-23] MEDS: RIFAXIMIN 550 MG TABLET PO SCH ×2 (08:33→20:33)
[2018-11-23] MEDS: PANTOPRAZOLE 40 MG TABLET PO SCH (08:33)
[2018-11-23] MEDS: FUROSEMIDE 40 MG/4 ML VIAL IV SCH ×2 (08:33→17:46)
[2018-11-23] MEDS: MAGNESIUM CHLORIDE 64 MG TABLET PO SCH ×2 (08:33→20:32)
[2018-11-23] MEDS: POTASSIUM CHLORIDE 20 MEQ TABLET PO SCH ×3 (08:33→20:33)
[2018-11-23] MEDS: LACTULOSE 20 GM/30 ML UDCUP PO SCH ×2 (08:33→20:33)
[2018-11-23] MEDS: DOCUSATE SODIUM 100 MG CAPSULE PO SCH ×2 (08:38→20:32)
[2018-11-23] MEDS: ONDANSETRON 4 MG/2 ML VIAL IV PRN (17:47)
[2018-11-23] MEDS: guaiFENesin/CODEINE 5 ML LIQUID PO PRN (20:39)
[2018-11-23] MEDS: LORATADINE 10 MG TABLET PO SCH (20:49)
[2018-11-24] MEDS: ALBUTEROL/IPRATROPIUM 3 ML NEB RESP TX SCH ×7 (00:34→23:00)
[2018-11-24 02:14] LABS: Basophils % 0.7 % (0.0-0.8); Eosinophils # 0.3 10*3/uL (0.0-0.87); Eosinophils % 4.7 % (0.00-10.9); Hematocrit 23.4 VOL% (42.0-52.0); Hemoglobin 7.4 GM/DL (14.0-18.0); Lymphocytes # 0.6 10*3/uL (1.4-4.0); Lymphocytes % 11.2 % (21.2-54.2); Mean Corpuscular HGB Conc 31.6 GM/DL (32-36); Mean Corpuscular Volume 107.8 FL (87-102); Mean Platelet Volume 8.8 FL (9.6-12.0); Monocytes % 18.2 % (1.7-12.7); NRBC # 0.02 10*3/uL; Neutrophils % 56.2 % (38.7-73.9); Red Blood Count 2.17 MC/CUMM (3.8-5.5); White Blood Count 5.5 T/CUMM (4-12)
[2018-11-24 02:15] LABS: Platelet Count 95 T/CUMM (130-400)
[2018-11-24 02:38] LABS: Albumin 2.4 G/DL (3.4-5.0); Bilirubin,Direct 2.6 MG/DL (0.0-0.20); Bilirubin,Indirect 4.1 MG/DL (0.0-1.0); Bilirubin,Total 6.7 MG/DL (0.2-1.0); Calcium 7.7 MG/DL (8.5-10.1); Osmolality,Calculated 269.2 MOS/KG (273-304); Total Protein 6.1 G/DL (6.4-8.3)
[2018-11-24 02:39] LABS: Albumin 2.4 G/DL (3.4-5.0); Band Neutrophils 1 % (0-10); Bilirubin,Total 6.7 MG/DL (0.2-1.0); Eosinophils 4 % (0-10); Lymphocytes 13 % (20-55); Metamyelocytes 1 %; Myelocytes 1 %; Osmolality,Calculated 265.5 MOS/KG (273-304); Segmented Neutrophils 59 % (50-85); Total Protein 5.9 G/DL (6.4-8.3)
[2018-11-24 02:41] LABS: Hypochromasia 1+; Platelet Estimate Decreased; Polychromasia 1+
[2018-11-24 02:42] LABS: Total Cells Counted 100
[2018-11-24] MEDS: ALBUMIN 25% 25 GM in PREMIX 1 EACH IV SCH ×3 (04:00→21:03)
[2018-11-24] MEDS: PIPERACILLIN/TAZOBACTAM 3,375 MG in SODIUM CHLORIDE 0.9% 100 ML IV SCH ×3 (05:06→21:17)
[2018-11-24] MEDS: LACTATED RINGERS 1,000 ML IV SCH (07:15)
[2018-11-24] MEDS ORDERED: PROPOFOL 200 MG/20 ML VIAL IV ONE (08:04)
[2018-11-24] MEDS ORDERED: ETOMIDATE 20 MG/10 ML VIAL IV ONE (08:04)
[2018-11-24] MEDS ORDERED: LIDOCAINE 100 MG/5 ML SYRINGE ONE (08:04)
[2018-11-24] MEDS ORDERED: EPINEPHrine 1 MG/ML VIAL ONE (08:41)
[2018-11-24] MEDS ORDERED: SODIUM CHLORIDE 0.9% 1,000 ML IV PRN (08:49)
[2018-11-24] MEDS: oxyCODONE/ACETAMINOPHEN 5-325 MG TABLET PO PRN (10:40)
[2018-11-24] MEDS: DOCUSATE SODIUM 100 MG CAPSULE PO SCH ×2 (10:41→21:08)
[2018-11-24] MEDS: POTASSIUM CHLORIDE 20 MEQ TABLET PO SCH ×3 (10:42→21:08)
[2018-11-24] MEDS: RIFAXIMIN 550 MG TABLET PO SCH ×2 (10:42→21:08)
[2018-11-24] MEDS: SPIRONOLACTONE 100 MG TABLET PO SCH (10:42)
[2018-11-24] MEDS: PANTOPRAZOLE 40 MG TABLET PO SCH (10:42)
[2018-11-24] MEDS: MAGNESIUM CHLORIDE 64 MG TABLET PO SCH ×2 (10:43→21:07)
[2018-11-24] MEDS: ONDANSETRON 4 MG/2 ML VIAL IV PRN (10:45)
[2018-11-24] MEDS: FUROSEMIDE 40 MG/4 ML VIAL IV SCH ×2 (10:46→18:06)
[2018-11-24] MEDS: LACTULOSE 20 GM/30 ML UDCUP PO SCH ×2 (10:50→21:08)
[2018-11-24] MEDS: LORazepam 2 MG/1 ML VIAL IV PRN (16:25)
[2018-11-24] MEDS: SODIUM CHLORIDE 0.9% 1,000 ML IV SCH (18:06)
[2018-11-24] MEDS: guaiFENesin/CODEINE 5 ML LIQUID PO PRN (21:08)
[2018-11-24] MEDS: LORATADINE 10 MG TABLET PO SCH (21:08)
[2018-11-25] MEDS: oxyCODONE/ACETAMINOPHEN 5-325 MG TABLET PO PRN ×3 (01:04→21:42)
[2018-11-25] MEDS: LORazepam 2 MG/1 ML VIAL IV PRN ×2 (01:05→09:44)
[2018-11-25] MEDS: ALBUTEROL/IPRATROPIUM 3 ML NEB RESP TX SCH ×6 (03:00→23:13)
[2018-11-25 04:56] LABS: Basophils % 0.7 % (0.0-0.8); Eosinophils # 0.2 10*3/uL (0.0-0.87); Eosinophils % 3.1 % (0.00-10.9); Hematocrit 28.3 VOL% (42.0-52.0); Hemoglobin 9.4 GM/DL (14.0-18.0); Immature Granulocytes % 3.9 %; Immature Granulocytes Absolute 0.24 #; Lymphocytes # 0.5 10*3/uL (1.4-4.0); Lymphocytes % 8.8 % (21.2-54.2); Mean Corpuscular HGB Conc 33.2 GM/DL (32-36); Mean Corpuscular Volume 103.3 FL (87-102); Mean Platelet Volume 9.5 FL (9.6-12.0); Monocytes % 12.7 % (1.7-12.7); Neutrophils % 70.8 % (38.7-73.9); Red Blood Count 2.74 MC/CUMM (3.8-5.5); Red Cell Distribution Width 24.9 % (9.3-17.3); White Blood Count 6.1 T/CUMM (4-12)
[2018-11-25 05:11] LABS: Platelet Count 86 T/CUMM (130-400)
[2018-11-25 05:16] LABS: Albumin 2.6 G/DL (3.4-5.0); Bilirubin,Direct 2.75 MG/DL (0.0-0.20); Bilirubin,Indirect 6.5 MG/DL (0.0-1.0); Bilirubin,Total 9.2 MG/DL (0.2-1.0); Calcium 7.8 MG/DL (8.5-10.1); Osmolality,Calculated 261.7 MOS/KG (273-304); Total Protein 6.3 G/DL (6.4-8.3)
[2018-11-25] MEDS: ALBUMIN 25% 25 GM in PREMIX 1 EACH IV SCH ×3 (05:18→21:41)
[2018-11-25] MEDS: PIPERACILLIN/TAZOBACTAM 3,375 MG in SODIUM CHLORIDE 0.9% 100 ML IV SCH ×2 (05:19→14:54)
[2018-11-25 05:25] LABS: Band Neutrophils 2 % (0-10); Hypochromasia 1+; Lymphocytes 4 % (20-55); Platelet Estimate Decreased; Segmented Neutrophils 86 % (50-85); Total Cells Counted 100
[2018-11-25] MEDS: LACTATED RINGERS 1,000 ML IV SCH (05:41)
[2018-11-25] MEDS: FUROSEMIDE 40 MG/4 ML VIAL IV SCH ×2 (08:18→17:07)
[2018-11-25] MEDS: LACTULOSE 20 GM/30 ML UDCUP PO SCH ×2 (09:35→21:41)
[2018-11-25] MEDS: RIFAXIMIN 550 MG TABLET PO SCH (09:36)
[2018-11-25] MEDS: DOCUSATE SODIUM 100 MG CAPSULE PO SCH ×2 (09:37→21:41)
[2018-11-25] MEDS: POTASSIUM CHLORIDE 20 MEQ TABLET PO SCH ×3 (09:37→21:42)
[2018-11-25] MEDS: PANTOPRAZOLE 40 MG TABLET PO SCH (09:37)
[2018-11-25] MEDS: MAGNESIUM CHLORIDE 64 MG TABLET PO SCH ×2 (09:39→21:42)
[2018-11-25] MEDS: SPIRONOLACTONE 100 MG TABLET PO SCH (09:39)
[2018-11-25] MEDS: ONDANSETRON 4 MG/2 ML VIAL IV PRN (09:40)
[2018-11-25] MEDS: SODIUM CHLORIDE 0.9% 1,000 ML IV SCH (13:17)
[2018-11-25] MEDS: LORATADINE 10 MG TABLET PO SCH (21:41)
[2018-11-25] MEDS: traZODone 50 MG TABLET PO PRN (21:42)
[2018-11-26] MEDS: ALBUMIN 25% 25 GM in PREMIX 1 EACH IV SCH ×3 (03:59→21:37)
[2018-11-26] MEDS: ALBUTEROL/IPRATROPIUM 3 ML NEB RESP TX SCH ×6 (04:20→22:40)
[2018-11-26 04:25] LABS: Basophils % 0.6 % (0.0-0.8); Eosinophils # 0.1 10*3/uL (0.0-0.87); Eosinophils % 2.5 % (0.00-10.9); Hematocrit 26.5 VOL% (42.0-52.0); Hemoglobin 8.7 GM/DL (14.0-18.0); Immature Granulocytes % 2.1 %; Lymphocytes # 0.5 10*3/uL (1.4-4.0); Lymphocytes % 9.7 % (21.2-54.2); Mean Corpuscular HGB Conc 32.8 GM/DL (32-36); Mean Corpuscular Volume 105.6 FL (87-102); Monocytes % 15.5 % (1.7-12.7); Neutrophils % 69.6 % (38.7-73.9); Platelet Count 80 T/CUMM (130-400); Red Blood Count 2.51 MC/CUMM (3.8-5.5); Red Cell Distribution Width 23.9 % (9.3-17.3); White Blood Count 4.8 T/CUMM (4-12)
[2018-11-26 04:41] LABS: Calcium 8.2 MG/DL (8.5-10.1); Osmolality,Calculated 262.5 MOS/KG (273-304)
[2018-11-26 04:53] LABS: Hypochromasia 1+; Platelet Estimate Decreased
[2018-11-26] MEDS: MAGNESIUM SULF RIDER 2 GM in PREMIX 1 EACH IV PRN ×2 (05:58→15:07)
[2018-11-26] MEDS: POTASSIUM CHLORIDE 20 MEQ TABLET PO SCH ×3 (08:52→21:38)
[2018-11-26] MEDS: SPIRONOLACTONE 100 MG TABLET PO SCH (08:52)
[2018-11-26] MEDS: LACTULOSE 20 GM/30 ML UDCUP PO SCH ×2 (08:52→21:38)
[2018-11-26] MEDS: MAGNESIUM CHLORIDE 64 MG TABLET PO SCH ×2 (08:52→21:38)
[2018-11-26] MEDS: DOCUSATE SODIUM 100 MG CAPSULE PO SCH ×2 (08:52→21:38)
[2018-11-26] MEDS: PANTOPRAZOLE 40 MG TABLET PO SCH (08:53)
[2018-11-26] MEDS: FUROSEMIDE 40 MG/4 ML VIAL IV SCH ×2 (08:53→15:50)
[2018-11-26 09:29] LABS: INR 1.8; PT Patient Result 19.7 SECS
[2018-11-26 10:00] LABS: Albumin 3.1 G/DL (3.4-5.0); Bilirubin,Direct 2.77 MG/DL (0.0-0.20); Bilirubin,Indirect 5.4 MG/DL (0.0-1.0); Bilirubin,Total 8.2 MG/DL (0.2-1.0); Total Protein 6.3 G/DL (6.4-8.3)
[2018-11-26] MEDS: LACTATED RINGERS 1,000 ML IV SCH (11:16)
[2018-11-26] MEDS: LORATADINE 10 MG TABLET PO SCH (21:38)
[2018-11-26] MEDS: SODIUM CHLORIDE 0.9% 1,000 ML IV SCH (21:39)
[2018-11-27] MEDS: traZODone 50 MG TABLET PO PRN (01:16)
[2018-11-27] MEDS: LORazepam 2 MG/1 ML VIAL IV PRN (01:16)
[2018-11-27] MEDS: ALBUTEROL/IPRATROPIUM 3 ML NEB RESP TX SCH ×3 (02:42→11:30)
[2018-11-27] MEDS: SODIUM CHLORIDE 0.9% 1,000 ML IV SCH (02:45)
[2018-11-27] MEDS: ALBUMIN 25% 25 GM in PREMIX 1 EACH IV SCH ×2 (05:43→12:06)
[2018-11-27 06:10] LABS: Albumin 3.2 G/DL (3.4-5.0); Bilirubin,Direct 2.22 MG/DL (0.0-0.20); Bilirubin,Indirect 4.9 MG/DL (0.0-1.0); Bilirubin,Total 7.1 MG/DL (0.2-1.0); Calcium 8.4 MG/DL (8.5-10.1)
[2018-11-27 06:11] LABS: Basophils % 0.7 % (0.0-0.8); Eosinophils # 0.1 10*3/uL (0.0-0.87); Eosinophils % 2.5 % (0.00-10.9); Hematocrit 24.5 VOL% (42.0-52.0); Hemoglobin 8.1 GM/DL (14.0-18.0); Immature Granulocytes % 0.7 %; Immature Granulocytes Absolute 0.03 #; Lymphocytes # 0.4 10*3/uL (1.4-4.0); Lymphocytes % 8.7 % (21.2-54.2); Mean Corpuscular HGB Conc 33.1 GM/DL (32-36); Mean Corpuscular Volume 105.2 FL (87-102); Mean Platelet Volume 9.4 FL (9.6-12.0); Monocytes % 13.3 % (1.7-12.7); Neutrophils % 74.1 % (38.7-73.9); Red Blood Count 2.33 MC/CUMM (3.8-5.5); Red Cell Distribution Width 23.2 % (9.3-17.3); White Blood Count 4.4 T/CUMM (4-12)
[2018-11-27 06:25] LABS: Platelet Count 69 T/CUMM (130-400)
[2018-11-27 06:34] LABS: Hypochromasia 1+; Platelet Estimate Decreased
[2018-11-27] MEDS: FUROSEMIDE 40 MG/4 ML VIAL IV SCH (09:37)
[2018-11-27] MEDS: POTASSIUM CHLORIDE 20 MEQ TABLET PO SCH ×2 (09:38→15:29)
[2018-11-27] MEDS: PANTOPRAZOLE 40 MG TABLET PO SCH (09:38)
[2018-11-27] MEDS: MAGNESIUM CHLORIDE 64 MG TABLET PO SCH (09:38)
[2018-11-27] MEDS: LACTULOSE 20 GM/30 ML UDCUP PO SCH (09:39)
[2018-11-27] MEDS: DOCUSATE SODIUM 100 MG CAPSULE PO SCH (09:39)
[2018-11-27] MEDS: SPIRONOLACTONE 100 MG TABLET PO SCH (09:39)
[2018-11-27] MEDS ORDERED: FLUCONAZOLE 150 MG TABLET PO ONE (09:43)
[2018-11-27] MEDS: MAGNESIUM SULF RIDER 2 GM in PREMIX 1 EACH IV PRN (09:46)
[2018-11-27 11:59] VITALS: BP 120/53
== END 2018-11-27 16:33 | disposition home health service (06) | DRG 432 ==
LOC: N.ED 14:59 → N.EDINP 19:56 → N.4E 21:46
PROVIDERS: ADMIT Family Medicine; ATTEND Family Medicine

== ENCOUNTER 2019-01-16 15:56 | Inpatient (IN) ==
[2019-01-16] MEDS ORDERED: ALBUTEROL/IPRATROPIUM 3 ML NEB RESP TX STA (17:52)
[2019-01-16] MEDS ORDERED: ONDANSETRON 4 MG/2 ML VIAL IV STA (17:52)
[2019-01-16 18:34] LABS: Basophils # 0.1 10*3/uL (0.0-0.2); Basophils % 0.9 % (0.0-0.8); Eosinophils # 0.2 10*3/uL (0.0-0.87); Hemoglobin 10.2 GM/DL (14.0-18.0); Immature Granulocytes % 0.4 %; Immature Granulocytes Absolute 0.02 #; Lymphocytes # 0.7 10*3/uL (1.4-4.0); Lymphocytes % 12.3 % (21.2-54.2); Mean Corpuscular HGB Conc 32.9 GM/DL (32-36); Mean Corpuscular Volume 116.1 FL (87-102); Mean Platelet Volume 9.4 FL (9.6-12.0); Monocytes % 18.7 % (1.7-12.7); Neutrophils % 64.7 % (38.7-73.9); Platelet Count 82 T/CUMM (130-400); Red Blood Count 2.67 MC/CUMM (3.8-5.5); Red Cell Distribution Width 15.8 % (9.3-17.3); White Blood Count 5.4 T/CUMM (4-12)
[2019-01-16 18:51] LABS: Alanine Aminotransferase 31 U/L (16-61); Alkaline Phosphatase 248 U/L (45-117); Aspartate Amino Transferase 68 U/L (0-37); Blood Urea Nitrogen 9 MG/DL (7-18); Calcium 7.8 MG/DL (8.5-10.1); Estimated Glom Filtration Rate 120 ML/MIN; Glucose 103 MG/DL (74-106); Osmolality,Calculated 268.1 MOS/KG (273-304); Total Protein 6.5 G/DL (6.4-8.3); Troponin I < 0.015 NG/ML (0.00-0.045)
[2019-01-16] MEDS ORDERED: cefTRIAXone 1,000 MG in SODIUM CHLORIDE 0.9% 100 ML IV STA (19:08)
[2019-01-16] MEDS ORDERED: AZITHROMYCIN INJ 500 MG in SODIUM CHLORIDE 0.9% 250 ML IV STA (19:08)
[2019-01-16 19:14] LABS: INR 1.8; Partial Thromboplastin Time 35.1 SECS (20.8-36.0)
[2019-01-16] MEDS ORDERED: LACTULOSE 20 GM/30 ML UDCUP PO PRN (19:16)
[2019-01-16 19:27] LABS: Anisocytosis 2+; Band Neutrophils 3 % (0-10); Eosinophils 2 % (0-10); Lymphocytes 9 % (20-55); Macrocytosis 2+; Metamyelocytes 4 %; Platelet Estimate Decreased; Polychromasia 1+; Reactive Lymphocytes Slight; Segmented Neutrophils 73 % (50-85); Total Cells Counted 100
[2019-01-16] MEDS: MAGNESIUM CHLORIDE 64 MG TABLET PO SCH (22:04)
[2019-01-16] MEDS: POTASSIUM CHLORIDE 20 MEQ TABLET PO SCH (22:05)
[2019-01-16] MEDS: RIFAXIMIN 550 MG TABLET PO SCH (22:05)
[2019-01-16] MEDS: traZODone 50 MG TABLET PO PRN (22:10)
[2019-01-17] MEDS: ALBUTEROL/IPRATROPIUM 3 ML NEB RESP TX SCH ×5 (00:40→19:19)
[2019-01-17] MEDS: ONDANSETRON 4 MG/2 ML VIAL IV SCH ×4 (01:47→17:39)
[2019-01-17 05:15] LABS: Basophils % 0.7 % (0.0-0.8); Eosinophils # 0.2 10*3/uL (0.0-0.87); Eosinophils % 3.3 % (0.00-10.9); Hematocrit 27.4 VOL% (42.0-52.0); Immature Granulocytes % 0.4 %; Immature Granulocytes Absolute 0.02 #; Lymphocytes # 0.5 10*3/uL (1.4-4.0); Lymphocytes % 11.5 % (21.2-54.2); Mean Corpuscular HGB Conc 32.8 GM/DL (32-36); Mean Corpuscular Volume 116.1 FL (87-102); Mean Platelet Volume 9.7 FL (9.6-12.0); Monocytes % 19.7 % (1.7-12.7); Neutrophils % 64.4 % (38.7-73.9); Red Blood Count 2.36 MC/CUMM (3.8-5.5); Red Cell Distribution Width 15.6 % (9.3-17.3); White Blood Count 4.5 T/CUMM (4-12)
[2019-01-17 05:20] LABS: Platelet Count 71 T/CUMM (130-400)
[2019-01-17 05:36] LABS: Eosinophils 7 % (0-10); Hypochromasia 1+; Lymphocytes 9 % (20-55); Macrocytosis 1+; Segmented Neutrophils 72 % (50-85); Total Cells Counted 100
[2019-01-17 05:37] LABS: Platelet Estimate Decreased; Polychromasia Slight
[2019-01-17 05:45] LABS: Osmolality,Calculated 273.8 MOS/KG (273-304)
[2019-01-17] MEDS ORDERED: FUROSEMIDE 40 MG/4 ML VIAL IV SCH (08:00)
[2019-01-17] MEDS ORDERED: SPIRONOLACTONE 100 MG TABLET PO SCH (09:00)
[2019-01-17] MEDS: FERROUS SULFATE 325 MG TABLET PO SCH (10:01)
[2019-01-17] MEDS: RIFAXIMIN 550 MG TABLET PO SCH ×2 (10:01→21:09)
[2019-01-17] MEDS: PANTOPRAZOLE 40 MG TABLET PO SCH (10:01)
[2019-01-17] MEDS: MAGNESIUM CHLORIDE 64 MG TABLET PO SCH ×2 (10:01→21:22)
[2019-01-17] MEDS: POTASSIUM CHLORIDE 20 MEQ TABLET PO SCH ×3 (10:02→21:09)
[2019-01-17] MEDS: PHYTONADIONE 5 MG/5 ML ORAL.SYR PO SCH (15:08)
[2019-01-17] MEDS: BENZONATATE 100 MG CAPSULE PO SCH (17:38)
[2019-01-17] MEDS: FUROSEMIDE 40 MG/4 ML VIAL IV SCH ×2 (17:39→21:09)
[2019-01-17] MEDS: cefTRIAXone 1,000 MG in SYRINGE 1 EACH IV SCH (17:39)
[2019-01-17] MEDS: guaiFENesin/CODEINE 5 ML LIQUID PO PRN (17:44)
[2019-01-17] MEDS: AZITHROMYCIN INJ 500 MG in SODIUM CHLORIDE 0.9% 250 ML IV SCH (21:08)
[2019-01-18] MEDS: guaiFENesin/CODEINE 5 ML LIQUID PO PRN ×3 (00:34→20:44)
[2019-01-18] MEDS: ONDANSETRON 4 MG/2 ML VIAL IV SCH ×4 (00:35→17:54)
[2019-01-18] MEDS: BENZONATATE 100 MG CAPSULE PO SCH ×2 (05:31→17:54)
[2019-01-18 05:33] LABS: Basophils # 0.1 10*3/uL (0.0-0.2); Basophils % 0.7 % (0.0-0.8); Eosinophils # 0.2 10*3/uL (0.0-0.87); Eosinophils % 1.8 % (0.00-10.9); Hematocrit 25.4 VOL% (42.0-52.0); Hemoglobin 8.2 GM/DL (14.0-18.0); Immature Granulocytes % 0.4 %; Immature Granulocytes Absolute 0.03 #; Lymphocytes # 0.4 10*3/uL (1.4-4.0); Lymphocytes % 4.9 % (21.2-54.2); Mean Corpuscular HGB Conc 32.3 GM/DL (32-36); Mean Corpuscular Volume 117.6 FL (87-102); Mean Platelet Volume 9.9 FL (9.6-12.0); Monocytes % 11.2 % (1.7-12.7); Platelet Count 67 T/CUMM (130-400); Red Blood Count 2.16 MC/CUMM (3.8-5.5); Red Cell Distribution Width 15.8 % (9.3-17.3); White Blood Count 8.3 T/CUMM (4-12)
[2019-01-18 05:48] LABS: INR 1.9; PT Patient Result 20.6 SECS (9.6-12.2)
[2019-01-18 05:55] LABS: Eosinophils 1 % (0-10); Hypochromasia 1+; Lymphocytes 3 % (20-55); Ovalocytes Slight; Platelet Estimate Decreased; Segmented Neutrophils 88 % (50-85); Total Cells Counted 100
[2019-01-18 05:56] LABS: Macrocytosis Slight
[2019-01-18 05:58] LABS: Albumin 1.8 G/DL (3.4-5.0); Bilirubin,Total 8.6 MG/DL (0.2-1.0); Calcium 7.9 MG/DL (8.5-10.1); Osmolality,Calculated 274.7 MOS/KG (273-304); Total Protein 5.7 G/DL (6.4-8.3)
[2019-01-18] MEDS: ALBUTEROL/IPRATROPIUM 3 ML NEB RESP TX SCH ×3 (07:44→19:31)
[2019-01-18] MEDS ORDERED: SODIUM CHLORIDE 0.9% 1,000 ML IV PRN (08:41)
[2019-01-18] MEDS: MAGNESIUM CHLORIDE 64 MG TABLET PO SCH ×3 (10:00→21:58)
[2019-01-18] MEDS: SPIRONOLACTONE 100 MG TABLET PO SCH (10:01)
[2019-01-18] MEDS: FERROUS SULFATE 325 MG TABLET PO SCH (10:02)
[2019-01-18] MEDS: POTASSIUM CHLORIDE 20 MEQ TABLET PO SCH ×3 (10:02→20:20)
[2019-01-18] MEDS: RIFAXIMIN 550 MG TABLET PO SCH ×2 (10:02→20:20)
[2019-01-18] MEDS: PANTOPRAZOLE 40 MG TABLET PO SCH (10:02)
[2019-01-18] MEDS: FUROSEMIDE 40 MG/4 ML VIAL IV SCH ×3 (10:02→20:21)
[2019-01-18] MEDS: PHYTONADIONE 5 MG/5 ML ORAL.SYR PO SCH (10:07)
[2019-01-18] MEDS ORDERED: ALBUMIN 25% 50 GM in PREMIX 1 EACH IV ONE (14:00)
[2019-01-18] MEDS: cefTRIAXone 1,000 MG in SYRINGE 1 EACH IV SCH (17:53)
[2019-01-18] MEDS: MAGNESIUM SULF RIDER 2 GM in PREMIX 1 EACH IV PRN (20:21)
[2019-01-18] MEDS: AZITHROMYCIN INJ 500 MG in SODIUM CHLORIDE 0.9% 250 ML IV SCH (20:24)
[2019-01-18] MEDS: traZODone 50 MG TABLET PO PRN (20:29)
[2019-01-19] MEDS: ONDANSETRON 4 MG/2 ML VIAL IV SCH ×4 (00:25→17:22)
[2019-01-19] MEDS: ALBUTEROL/IPRATROPIUM 3 ML NEB RESP TX SCH ×4 (01:08→19:34)
[2019-01-19 05:55] LABS: Basophils % 0.5 % (0.0-0.8); Eosinophils # 0.2 10*3/uL (0.0-0.87); Eosinophils % 2.5 % (0.00-10.9); Hematocrit 21.2 VOL% (42.0-52.0); Hemoglobin 6.8 GM/DL (14.0-18.0); Immature Granulocytes % 0.8 %; Immature Granulocytes Absolute 0.05 #; Lymphocytes # 0.5 10*3/uL (1.4-4.0); Lymphocytes % 7.1 % (21.2-54.2); Mean Corpuscular HGB Conc 32.1 GM/DL (32-36); Mean Corpuscular Volume 119.1 FL (87-102); Mean Platelet Volume 9.3 FL (9.6-12.0); Monocytes % 11.7 % (1.7-12.7); Neutrophils % 77.4 % (38.7-73.9); Platelet Count 51 T/CUMM (130-400); Red Blood Count 1.78 MC/CUMM (3.8-5.5); White Blood Count 6.5 T/CUMM (4-12)
[2019-01-19 06:07] LABS: PT Patient Result 22.1 SECS (9.6-12.2)
[2019-01-19] MEDS: BENZONATATE 100 MG CAPSULE PO SCH ×2 (06:13→17:21)
[2019-01-19 06:15] LABS: Calcium 8.4 MG/DL (8.5-10.1)
[2019-01-19 06:18] LABS: Albumin 2.1 G/DL (3.4-5.0); Bilirubin,Direct 4.03 MG/DL (0.0-0.20); Bilirubin,Indirect 7.2 MG/DL (0.0-1.0); Bilirubin,Total 11.2 MG/DL (0.2-1.0); Total Protein 5.5 G/DL (6.4-8.3)
[2019-01-19] MEDS ORDERED: SODIUM CHLORIDE 0.9% 1,000 ML IV PRN ×3 (07:55→08:37)
[2019-01-19] MEDS: FERROUS SULFATE 325 MG TABLET PO SCH (09:28)
[2019-01-19] MEDS: SPIRONOLACTONE 100 MG TABLET PO SCH (09:28)
[2019-01-19] MEDS: FUROSEMIDE 40 MG/4 ML VIAL IV SCH ×3 (09:29→20:28)
[2019-01-19] MEDS: RIFAXIMIN 550 MG TABLET PO SCH ×2 (09:29→20:28)
[2019-01-19] MEDS: MAGNESIUM CHLORIDE 64 MG TABLET PO SCH ×3 (09:29→20:29)
[2019-01-19] MEDS: PANTOPRAZOLE 40 MG TABLET PO SCH (09:29)
[2019-01-19] MEDS: POTASSIUM CHLORIDE 20 MEQ TABLET PO SCH ×3 (09:29→20:28)
[2019-01-19] MEDS: PHYTONADIONE 5 MG/5 ML ORAL.SYR PO SCH (12:52)
[2019-01-19] MEDS: guaiFENesin/CODEINE 5 ML LIQUID PO PRN (13:10)
[2019-01-19] MEDS: AZITHROMYCIN INJ 500 MG in SODIUM CHLORIDE 0.9% 250 ML IV SCH (20:27)
[2019-01-19] MEDS: cefTRIAXone 1,000 MG in SYRINGE 1 EACH IV SCH (20:28)
[2019-01-19] MEDS: traZODone 50 MG TABLET PO PRN (22:18)
[2019-01-20] MEDS: ALBUTEROL/IPRATROPIUM 3 ML NEB RESP TX SCH ×4 (00:28→19:10)
[2019-01-20] MEDS: ONDANSETRON 4 MG/2 ML VIAL IV SCH ×4 (00:30→17:05)
[2019-01-20 03:33] LABS: Basophils % 0.4 % (0.0-0.8); Eosinophils # 0.1 10*3/uL (0.0-0.87); Eosinophils % 1.9 % (0.00-10.9); Hematocrit 22.9 VOL% (42.0-52.0); Hemoglobin 7.6 GM/DL (14.0-18.0); Immature Granulocytes % 0.8 %; Immature Granulocytes Absolute 0.04 #; Lymphocytes # 0.6 10*3/uL (1.4-4.0); Lymphocytes % 10.5 % (21.2-54.2); Mean Corpuscular HGB Conc 33.2 GM/DL (32-36); Mean Corpuscular Volume 109.6 FL (87-102); Mean Platelet Volume 9.9 FL (9.6-12.0); Monocytes % 10.5 % (1.7-12.7); NRBC # 0.03 10*3/uL; Neutrophils % 75.9 % (38.7-73.9); Red Blood Count 2.09 MC/CUMM (3.8-5.5); White Blood Count 5.2 T/CUMM (4-12)
[2019-01-20 03:37] LABS: Calcium 8.6 MG/DL (8.5-10.1); Osmolality,Calculated 273.1 MOS/KG (273-304)
[2019-01-20 03:38] LABS: Platelet Count 53 T/CUMM (130-400)
[2019-01-20 03:40] LABS: Albumin 2.3 G/DL (3.4-5.0); Bilirubin,Direct 3.9 MG/DL (0.0-0.20); Bilirubin,Indirect 7.4 MG/DL (0.0-1.0); Bilirubin,Total 11.3 MG/DL (0.2-1.0); Total Protein 5.5 G/DL (6.4-8.3)
[2019-01-20] MEDS: MAGNESIUM SULF RIDER 2 GM in PREMIX 1 EACH IV PRN ×2 (04:47→10:06)
[2019-01-20] MEDS: BENZONATATE 100 MG CAPSULE PO SCH ×2 (04:47→17:05)
[2019-01-20] MEDS: guaiFENesin/CODEINE 5 ML LIQUID PO PRN (04:51)
[2019-01-20 06:21] LABS: Anisocytosis 2+; Macrocytosis 2+; Platelet Estimate Decreased; Poikilocytosis Slight; Polychromasia 1+
[2019-01-20 06:27] LABS: INR 1.7; PT Patient Result 18.5 SECS (9.6-12.2)
[2019-01-20] MEDS: SPIRONOLACTONE 100 MG TABLET PO SCH (08:35)
[2019-01-20] MEDS: RIFAXIMIN 550 MG TABLET PO SCH ×2 (08:36→21:13)
[2019-01-20] MEDS: FUROSEMIDE 40 MG/4 ML VIAL IV SCH ×3 (08:36→21:13)
[2019-01-20] MEDS: PANTOPRAZOLE 40 MG TABLET PO SCH (08:36)
[2019-01-20] MEDS: FERROUS SULFATE 325 MG TABLET PO SCH (08:36)
[2019-01-20] MEDS: POTASSIUM CHLORIDE 20 MEQ TABLET PO SCH ×3 (08:36→21:13)
[2019-01-20] MEDS: MAGNESIUM CHLORIDE 64 MG TABLET PO SCH ×3 (08:36→21:13)
[2019-01-20] MEDS: PHYTONADIONE 5 MG/5 ML ORAL.SYR PO SCH (08:43)
[2019-01-20] MEDS ORDERED: SODIUM CHLORIDE 0.9% 1,000 ML IV PRN (09:02)
[2019-01-20] MEDS: metOLazone 2.5 MG TABLET PO SCH (10:06)
[2019-01-20] MEDS: cefTRIAXone 1,000 MG in SYRINGE 1 EACH IV SCH (21:13)
[2019-01-20] MEDS: AZITHROMYCIN INJ 500 MG in SODIUM CHLORIDE 0.9% 250 ML IV SCH (21:13)
[2019-01-21] MEDS: ALBUTEROL/IPRATROPIUM 3 ML NEB RESP TX SCH ×4 (00:05→19:28)
[2019-01-21] MEDS: ONDANSETRON 4 MG/2 ML VIAL IV SCH ×4 (00:55→18:14)
[2019-01-21] MEDS: BENZONATATE 100 MG CAPSULE PO SCH ×2 (04:13→16:23)
[2019-01-21 04:35] LABS: Basophils % 0.3 % (0.0-0.8); Eosinophils # 0.1 10*3/uL (0.0-0.87); Eosinophils % 1.8 % (0.00-10.9); Hematocrit 20.9 VOL% (42.0-52.0); Hemoglobin 6.9 GM/DL (14.0-18.0); Immature Granulocytes % 0.9 %; Immature Granulocytes Absolute 0.07 #; Lymphocytes # 0.5 10*3/uL (1.4-4.0); Lymphocytes % 6.9 % (21.2-54.2); Mean Platelet Volume 9.3 FL (9.6-12.0); Monocytes % 16.1 % (1.7-12.7); NRBC # 0.03 10*3/uL; Platelet Count 51 T/CUMM (130-400); Red Cell Distribution Width 24.2 % (9.3-17.3); White Blood Count 7.8 T/CUMM (4-12)
[2019-01-21 05:11] LABS: Platelet Estimate Decreased
[2019-01-21 05:12] LABS: Hypochromasia Slight; Polychromasia Few
[2019-01-21 05:21] LABS: Albumin 2.3 G/DL (3.4-5.0); Bilirubin,Direct 4.26 MG/DL (0.0-0.20); Bilirubin,Indirect 7.7 MG/DL (0.0-1.0); Total Protein 5.6 G/DL (6.4-8.3)
[2019-01-21] MEDS ORDERED: LACTATED RINGERS 1,000 ML IV SCH (07:00)
[2019-01-21] MEDS ORDERED: SODIUM CHLORIDE 0.9% 1,000 ML IV PRN ×2 (07:13→07:23)
[2019-01-21 08:07] LABS: Calcium 8.5 MG/DL (8.5-10.1); Osmolality,Calculated 267.5 MOS/KG (273-304)
[2019-01-21] MEDS ORDERED: LIDOCAINE 100 MG/5 ML SYRINGE ONE (09:00)
[2019-01-21] MEDS ORDERED: KETAMINE 500 MG/10 ML VIAL ONE (13:17)
[2019-01-21] MEDS ORDERED: MIDAZOLAM 2 MG/2 ML VIAL ONE (13:20)
[2019-01-21 15:49] LABS: INR 1.5; PT Patient Result 16.6 SECS (9.6-12.2)
[2019-01-21] MEDS: POTASSIUM CHLORIDE 20 MEQ TABLET PO SCH ×3 (15:52→21:15)
[2019-01-21] MEDS: PANTOPRAZOLE 40 MG TABLET PO SCH (15:52)
[2019-01-21] MEDS: FUROSEMIDE 40 MG/4 ML VIAL IV SCH ×3 (15:52→21:16)
[2019-01-21] MEDS: MAGNESIUM CHLORIDE 64 MG TABLET PO SCH ×3 (15:53→21:15)
[2019-01-21] MEDS: RIFAXIMIN 550 MG TABLET PO SCH ×2 (15:53→21:15)
[2019-01-21] MEDS: metOLazone 2.5 MG TABLET PO SCH (16:23)
[2019-01-21] MEDS: SPIRONOLACTONE 100 MG TABLET PO SCH (16:23)
[2019-01-21] MEDS: FERROUS SULFATE 325 MG TABLET PO SCH (16:23)
[2019-01-21] MEDS: AZITHROMYCIN INJ 500 MG in SODIUM CHLORIDE 0.9% 250 ML IV SCH (21:14)
[2019-01-21] MEDS: cefTRIAXone 1,000 MG in SYRINGE 1 EACH IV SCH (21:16)
[2019-01-22] MEDS: ONDANSETRON 4 MG/2 ML VIAL IV SCH ×4 (00:23→18:02)
[2019-01-22] MEDS: ALBUTEROL/IPRATROPIUM 3 ML NEB RESP TX SCH ×4 (01:03→19:16)
[2019-01-22] MEDS: BENZONATATE 100 MG CAPSULE PO SCH ×2 (05:07→17:28)
[2019-01-22 05:42] LABS: Basophils % 0.3 % (0.0-0.8); Eosinophils # 0.2 10*3/uL (0.0-0.87); Eosinophils % 2.8 % (0.00-10.9); Hematocrit 23.2 VOL% (42.0-52.0); Hemoglobin 7.7 GM/DL (14.0-18.0); Immature Granulocytes % 1.6 %; Immature Granulocytes Absolute 0.09 #; Lymphocytes # 0.5 10*3/uL (1.4-4.0); Mean Corpuscular HGB Conc 33.2 GM/DL (32-36); Mean Corpuscular Volume 105.9 FL (87-102); Mean Platelet Volume 9.7 FL (9.6-12.0); NRBC # 0.03 10*3/uL; Neutrophils % 69.3 % (38.7-73.9); Red Blood Count 2.19 MC/CUMM (3.8-5.5); Red Cell Distribution Width 26.2 % (9.3-17.3); White Blood Count 5.8 T/CUMM (4-12)
[2019-01-22 05:43] LABS: Platelet Count 46 T/CUMM (130-400)
[2019-01-22 06:02] LABS: Albumin 2.5 G/DL (3.4-5.0); Bilirubin,Direct 4.43 MG/DL (0.0-0.20); Bilirubin,Indirect 7.7 MG/DL (0.0-1.0); Total Protein 5.9 G/DL (6.4-8.3)
[2019-01-22 06:11] LABS: Band Neutrophils 3 % (0-10); Eosinophils 1 % (0-10); Lymphocytes 8 % (20-55); Platelet Estimate Decreased; Segmented Neutrophils 73 % (50-85); Total Cells Counted 100
[2019-01-22 06:22] LABS: Bilirubin,Total 12.1 MG/DL (0.2-1.0)
[2019-01-22] MEDS ORDERED: SODIUM CHLORIDE 0.9% 1,000 ML IV PRN ×2 (07:05→12:03)
[2019-01-22] MEDS: FERROUS SULFATE 325 MG TABLET PO SCH (10:05)
[2019-01-22] MEDS: PANTOPRAZOLE 40 MG TABLET PO SCH (10:05)
[2019-01-22] MEDS: MAGNESIUM CHLORIDE 64 MG TABLET PO SCH ×3 (10:06→22:05)
[2019-01-22] MEDS: POTASSIUM CHLORIDE 20 MEQ TABLET PO SCH ×3 (10:06→22:05)
[2019-01-22] MEDS: RIFAXIMIN 550 MG TABLET PO SCH ×2 (10:06→22:05)
[2019-01-22 10:36] LABS: RBC,Peritoneal Fluid 640 T/CUMM
[2019-01-22 10:40] LABS: Neutrophils,Peritoneal Fluid 14 %
[2019-01-22] MEDS: FUROSEMIDE 40 MG/4 ML VIAL IV SCH ×3 (12:42→22:04)
[2019-01-22] MEDS: metOLazone 2.5 MG TABLET PO SCH (12:42)
[2019-01-22] MEDS: SPIRONOLACTONE 100 MG TABLET PO SCH (12:44)
[2019-01-22] MEDS: cefTRIAXone 1,000 MG in SYRINGE 1 EACH IV SCH (22:05)
[2019-01-22] MEDS: AZITHROMYCIN INJ 500 MG in SODIUM CHLORIDE 0.9% 250 ML IV SCH (22:06)
[2019-01-22 22:49] LABS: INR 1.5; PT Patient Result 16.7 SECS (9.6-12.2)
[2019-01-23] MEDS: ALBUTEROL/IPRATROPIUM 3 ML NEB RESP TX SCH ×4 (00:02→19:36)
[2019-01-23] MEDS: traZODone 50 MG TABLET PO PRN ×2 (01:32→21:06)
[2019-01-23] MEDS: ONDANSETRON 4 MG/2 ML VIAL IV SCH ×5 (01:32→23:59)
[2019-01-23] MEDS: BENZONATATE 100 MG CAPSULE PO SCH ×2 (05:20→21:06)
[2019-01-23 06:34] LABS: Basophils % 0.6 % (0.0-0.8); Eosinophils # 0.1 10*3/uL (0.0-0.87); Eosinophils % 2.6 % (0.00-10.9); Hematocrit 22.2 VOL% (42.0-52.0); Hemoglobin 7.1 GM/DL (14.0-18.0); Immature Granulocytes % 1.2 %; Immature Granulocytes Absolute 0.06 #; Lymphocytes # 0.4 10*3/uL (1.4-4.0); Lymphocytes % 7.3 % (21.2-54.2); Mean Corpuscular Volume 110.4 FL (87-102); Mean Platelet Volume 10.3 FL (9.6-12.0); Monocytes % 17.2 % (1.7-12.7); NRBC # 0.03 10*3/uL; Neutrophils % 71.1 % (38.7-73.9); Platelet Count 59 T/CUMM (130-400); Red Blood Count 2.01 MC/CUMM (3.8-5.5); Red Cell Distribution Width 26.1 % (9.3-17.3); White Blood Count 4.9 T/CUMM (4-12)
[2019-01-23 06:48] LABS: INR 1.6; PT Patient Result 16.9 SECS (9.6-12.2)
[2019-01-23 06:55] LABS: Albumin 2.4 G/DL (3.4-5.0); Bilirubin,Direct 3.77 MG/DL (0.0-0.20); Bilirubin,Indirect 6.7 MG/DL (0.0-1.0); Bilirubin,Total 10.5 MG/DL (0.2-1.0)
[2019-01-23 06:55] LABS: Eosinophils 2 % (0-10); Hypochromasia 1+; Lymphocytes 12 % (20-55); Nucleated Red Blood Cells 1 (0-5); Ovalocytes Slight; Platelet Estimate Decreased; Segmented Neutrophils 77 % (50-85); Total Cells Counted 100
[2019-01-23 07:00] LABS: Albumin 2.6 G/DL (3.4-5.0); Bilirubin,Total 10.2 MG/DL (0.2-1.0); Calcium 9.6 MG/DL (8.5-10.1); Osmolality,Calculated 273.1 MOS/KG (273-304); Total Protein 6.1 G/DL (6.4-8.3)
[2019-01-23] MEDS ORDERED: ALBUMIN 25% 50 GM in PREMIX 1 EACH IV ONE (09:30)
[2019-01-23] MEDS: FUROSEMIDE 40 MG/4 ML VIAL IV SCH ×3 (09:35→21:11)
[2019-01-23] MEDS: RIFAXIMIN 550 MG TABLET PO SCH ×2 (09:36→21:06)
[2019-01-23] MEDS: FERROUS SULFATE 325 MG TABLET PO SCH (09:36)
[2019-01-23] MEDS: MAGNESIUM CHLORIDE 64 MG TABLET PO SCH ×3 (09:36→21:09)
[2019-01-23] MEDS: metOLazone 5 MG TABLET PO SCH (09:36)
[2019-01-23] MEDS: PANTOPRAZOLE 40 MG TABLET PO SCH (09:37)
[2019-01-23] MEDS: POTASSIUM CHLORIDE 20 MEQ TABLET PO SCH ×3 (09:37→21:06)
[2019-01-23] MEDS: cefTRIAXone 1,000 MG in SYRINGE 1 EACH IV SCH (21:07)
[2019-01-23] MEDS: AZITHROMYCIN INJ 500 MG in SODIUM CHLORIDE 0.9% 250 ML IV SCH (21:13)
[2019-01-24] MEDS: guaiFENesin/CODEINE 5 ML LIQUID PO PRN ×2 (00:05→06:09)
[2019-01-24] MEDS: ALBUTEROL/IPRATROPIUM 3 ML NEB RESP TX SCH ×4 (00:15→19:45)
[2019-01-24 05:58] LABS: Basophils % 0.6 % (0.0-0.8); Eosinophils # 0.2 10*3/uL (0.0-0.87); Eosinophils % 3.2 % (0.00-10.9); Hematocrit 22.2 VOL% (42.0-52.0); Hemoglobin 7.3 GM/DL (14.0-18.0); Immature Granulocytes Absolute 0.05 #; Lymphocytes # 0.4 10*3/uL (1.4-4.0); Lymphocytes % 7.9 % (21.2-54.2); Mean Corpuscular HGB Conc 32.9 GM/DL (32-36); Mean Platelet Volume 9.6 FL (9.6-12.0); Monocytes % 19.1 % (1.7-12.7); NRBC # 0.02 10*3/uL; Neutrophils % 68.2 % (38.7-73.9); Platelet Count 51 T/CUMM (130-400); White Blood Count 4.9 T/CUMM (4-12)
[2019-01-24 06:05] LABS: INR 1.7; PT Patient Result 18.8 SECS (9.6-12.2)
[2019-01-24] MEDS: ONDANSETRON 4 MG/2 ML VIAL IV SCH ×3 (06:09→17:45)
[2019-01-24 06:26] LABS: Albumin 2.7 G/DL (3.4-5.0); Albumin 2.9 G/DL (3.4-5.0); Bilirubin,Direct 3.47 MG/DL (0.0-0.20); Bilirubin,Indirect 6.8 MG/DL (0.0-1.0); Bilirubin,Total 10.2 MG/DL (0.2-1.0); Bilirubin,Total 10.3 MG/DL (0.2-1.0); Calcium 9.3 MG/DL (8.5-10.1); Osmolality,Calculated 263.8 MOS/KG (273-304); Total Protein 6.1 G/DL (6.4-8.3)
[2019-01-24 09:22] LABS: Eosinophils 1 % (0-10); Hypochromasia Slight; Lymphocytes 12 % (20-55); Metamyelocytes 1 %; Platelet Estimate Decreased; Polychromasia Slight; Segmented Neutrophils 67 % (50-85); Total Cells Counted 100
[2019-01-24] MEDS: PANTOPRAZOLE 40 MG TABLET PO SCH (09:36)
[2019-01-24] MEDS: MAGNESIUM CHLORIDE 64 MG TABLET PO SCH ×3 (09:37→20:51)
[2019-01-24] MEDS: POTASSIUM CHLORIDE 20 MEQ TABLET PO SCH ×3 (09:37→20:51)
[2019-01-24] MEDS: BENZONATATE 100 MG CAPSULE PO SCH ×2 (09:37→20:51)
[2019-01-24] MEDS: FERROUS SULFATE 325 MG TABLET PO SCH (09:37)
[2019-01-24] MEDS: FUROSEMIDE 40 MG/4 ML VIAL IV SCH ×3 (09:38→20:50)
[2019-01-24] MEDS: metOLazone 5 MG TABLET PO SCH (09:38)
[2019-01-24] MEDS: CLOTRIMAZOLE 10 MG TROCHE PO SCH ×2 (15:17→17:45)
[2019-01-24] MEDS: cefTRIAXone 1,000 MG in SYRINGE 1 EACH IV SCH (20:50)
[2019-01-24] MEDS: AZITHROMYCIN INJ 500 MG in SODIUM CHLORIDE 0.9% 250 ML IV SCH (20:51)
[2019-01-25] MEDS: ALBUTEROL/IPRATROPIUM 3 ML NEB RESP TX SCH ×4 (00:49→19:38)
[2019-01-25] MEDS: CLOTRIMAZOLE 10 MG TROCHE PO SCH ×6 (01:14→21:05)
[2019-01-25] MEDS: ONDANSETRON 4 MG/2 ML VIAL IV SCH ×4 (03:14→18:21)
[2019-01-25 05:04] LABS: Basophils % 0.4 % (0.0-0.8); Eosinophils # 0.2 10*3/uL (0.0-0.87); Eosinophils % 3.5 % (0.00-10.9); Hematocrit 22.6 VOL% (42.0-52.0); Hemoglobin 7.1 GM/DL (14.0-18.0); Immature Granulocytes % 1.4 %; Immature Granulocytes Absolute 0.07 #; Lymphocytes # 0.4 10*3/uL (1.4-4.0); Lymphocytes % 8.5 % (21.2-54.2); Mean Corpuscular HGB Conc 31.4 GM/DL (32-36); Mean Platelet Volume 9.6 FL (9.6-12.0); Neutrophils % 72.2 % (38.7-73.9); Platelet Count 65 T/CUMM (130-400); White Blood Count 4.9 T/CUMM (4-12)
[2019-01-25 05:26] LABS: Albumin 2.6 G/DL (3.4-5.0); Bilirubin,Total 10.3 MG/DL (0.2-1.0); Calcium 8.8 MG/DL (8.5-10.1); Osmolality,Calculated 266.8 MOS/KG (273-304)
[2019-01-25 05:45] LABS: Anisocytosis 2+; Hypochromasia 1+; Microcytosis 1+; Ovalocytes Few; Platelet Estimate Decreased; Polychromasia Few
[2019-01-25] MEDS: BENZONATATE 100 MG CAPSULE PO SCH ×2 (09:23→21:05)
[2019-01-25] MEDS: FUROSEMIDE 40 MG/4 ML VIAL IV SCH ×3 (09:23→21:06)
[2019-01-25] MEDS: metOLazone 5 MG TABLET PO SCH (09:23)
[2019-01-25] MEDS: MAGNESIUM CHLORIDE 64 MG TABLET PO SCH ×3 (09:24→21:06)
[2019-01-25] MEDS: PANTOPRAZOLE 40 MG TABLET PO SCH (09:24)
[2019-01-25] MEDS: POTASSIUM CHLORIDE 20 MEQ TABLET PO SCH ×3 (09:24→21:06)
[2019-01-25] MEDS: FERROUS SULFATE 325 MG TABLET PO SCH (09:24)
[2019-01-25] MEDS: traZODone 50 MG TABLET PO PRN (21:06)
[2019-01-26] MEDS: ONDANSETRON 4 MG/2 ML VIAL IV SCH ×5 (00:58→17:38)
[2019-01-26] MEDS: ALBUTEROL/IPRATROPIUM 3 ML NEB RESP TX SCH ×4 (01:13→20:37)
[2019-01-26 05:10] LABS: Basophils % 0.6 % (0.0-0.8); Eosinophils # 0.2 10*3/uL (0.0-0.87); Eosinophils % 2.8 % (0.00-10.9); Hematocrit 19.7 VOL% (42.0-52.0); Hemoglobin 6.5 GM/DL (14.0-18.0); Immature Granulocytes % 1.1 %; Immature Granulocytes Absolute 0.06 #; Lymphocytes # 0.5 10*3/uL (1.4-4.0); Lymphocytes % 9.9 % (21.2-54.2); Mean Corpuscular Volume 110.7 FL (87-102); Mean Platelet Volume 10.1 FL (9.6-12.0); Monocytes % 16.7 % (1.7-12.7); Neutrophils % 68.9 % (38.7-73.9); Platelet Count 60 T/CUMM (130-400); Red Blood Count 1.78 MC/CUMM (3.8-5.5); Red Cell Distribution Width 25.5 % (9.3-17.3); White Blood Count 5.3 T/CUMM (4-12)
[2019-01-26 05:37] LABS: Albumin 2.4 G/DL (3.4-5.0); Bilirubin,Total 9.4 MG/DL (0.2-1.0); Calcium 8.8 MG/DL (8.5-10.1); Osmolality,Calculated 269.7 MOS/KG (273-304); Total Protein 5.5 G/DL (6.4-8.3)
[2019-01-26 05:38] LABS: Band Neutrophils 1 % (0-10); Eosinophils 1 % (0-10); Lymphocytes 6 % (20-55); Platelet Estimate Decreased; Segmented Neutrophils 79 % (50-85); Total Cells Counted 100
[2019-01-26 05:39] LABS: Hypochromasia 1+; Microcytosis 1+; Ovalocytes Slight
[2019-01-26] MEDS: CLOTRIMAZOLE 10 MG TROCHE PO SCH ×5 (06:00→23:00)
[2019-01-26] MEDS: BENZONATATE 100 MG CAPSULE PO SCH ×2 (08:28→20:43)
[2019-01-26] MEDS: FUROSEMIDE 40 MG/4 ML VIAL IV SCH ×3 (08:28→23:00)
[2019-01-26] MEDS: PANTOPRAZOLE 40 MG TABLET PO SCH (08:29)
[2019-01-26] MEDS: MAGNESIUM CHLORIDE 64 MG TABLET PO SCH ×3 (08:29→21:54)
[2019-01-26] MEDS: FERROUS SULFATE 325 MG TABLET PO SCH (08:30)
[2019-01-26] MEDS: metOLazone 5 MG TABLET PO SCH (08:30)
[2019-01-26] MEDS: POTASSIUM CHLORIDE 20 MEQ TABLET PO SCH ×3 (08:30→20:43)
[2019-01-26] MEDS ORDERED: FUROSEMIDE 20 MG/2 ML VIAL IV PRN (11:27)
[2019-01-26] MEDS ORDERED: SODIUM CHLORIDE 0.9% 1,000 ML IV PRN (11:27)
[2019-01-27] MEDS: ALBUTEROL/IPRATROPIUM 3 ML NEB RESP TX SCH ×4 (00:40→18:43)
[2019-01-27] MEDS: ONDANSETRON 4 MG/2 ML VIAL IV SCH ×4 (01:06→17:29)
[2019-01-27 04:46] LABS: Basophils % 0.6 % (0.0-0.8); Eosinophils # 0.2 10*3/uL (0.0-0.87); Eosinophils % 2.4 % (0.00-10.9); Hematocrit 22.8 VOL% (42.0-52.0); Hemoglobin 7.7 GM/DL (14.0-18.0); Immature Granulocytes % 1.8 %; Immature Granulocytes Absolute 0.11 #; Lymphocytes # 0.5 10*3/uL (1.4-4.0); Lymphocytes % 7.6 % (21.2-54.2); Mean Corpuscular HGB Conc 33.8 GM/DL (32-36); Mean Corpuscular Volume 100.9 FL (87-102); Mean Platelet Volume 9.2 FL (9.6-12.0); Monocytes % 18.1 % (1.7-12.7); Neutrophils % 69.5 % (38.7-73.9); Platelet Count 55 T/CUMM (130-400); Red Blood Count 2.26 MC/CUMM (3.8-5.5); Red Cell Distribution Width 27.4 % (9.3-17.3); White Blood Count 6.2 T/CUMM (4-12)
[2019-01-27 05:09] LABS: Albumin 2.5 G/DL (3.4-5.0); Bilirubin,Direct 3.46 MG/DL (0.0-0.20); Bilirubin,Indirect 7.8 MG/DL (0.0-1.0); Bilirubin,Total 11.3 MG/DL (0.2-1.0); Calcium 8.5 MG/DL (8.5-10.1); Osmolality,Calculated 262.2 MOS/KG (273-304); Total Protein 5.7 G/DL (6.4-8.3)
[2019-01-27 05:19] LABS: Band Neutrophils 1 % (0-10); Eosinophils 3 % (0-10); Lymphocytes 7 % (20-55); Segmented Neutrophils 75 % (50-85); Total Cells Counted 100
[2019-01-27 05:20] LABS: Hypochromasia 1+; Platelet Estimate Decreased; Polychromasia Slight
[2019-01-27] MEDS: CLOTRIMAZOLE 10 MG TROCHE PO SCH ×2 (06:15→10:36)
[2019-01-27] MEDS: MAGNESIUM SULF RIDER 2 GM in PREMIX 1 EACH IV PRN ×2 (06:15→08:27)
[2019-01-27] MEDS: POTASSIUM CHLORIDE 20 MEQ TABLET PO SCH ×3 (08:21→20:42)
[2019-01-27] MEDS: MAGNESIUM CHLORIDE 64 MG TABLET PO SCH ×3 (08:22→20:43)
[2019-01-27] MEDS: BENZONATATE 100 MG CAPSULE PO SCH ×2 (08:22→20:42)
[2019-01-27] MEDS: PANTOPRAZOLE 40 MG TABLET PO SCH (08:22)
[2019-01-27] MEDS: FERROUS SULFATE 325 MG TABLET PO SCH (08:22)
[2019-01-27] MEDS: FUROSEMIDE 40 MG/4 ML VIAL IV SCH ×3 (08:25→20:43)
[2019-01-27] MEDS: metOLazone 5 MG TABLET PO SCH (08:34)
[2019-01-27 14:49] LABS: Hematocrit 25.4 VOL% (42.0-52.0); Hemoglobin 8.4 GM/DL (14.0-18.0)
[2019-01-27] MEDS: LACTULOSE 20 GM/30 ML UDCUP PO SCH ×2 (17:27→20:42)
[2019-01-27] MEDS: traMADol 50 MG TABLET PO PRN (18:17)
[2019-01-27] MEDS: traZODone 50 MG TABLET PO PRN (20:43)
[2019-01-28] MEDS: ONDANSETRON 4 MG/2 ML VIAL IV SCH ×4 (00:05→17:35)
[2019-01-28] MEDS: ALBUTEROL/IPRATROPIUM 3 ML NEB RESP TX SCH ×4 (01:22→19:11)
[2019-01-28] MEDS: LACTULOSE 20 GM/30 ML UDCUP PO SCH ×4 (02:08→20:52)
[2019-01-28 06:05] LABS: Basophils % 0.4 % (0.0-0.8); Eosinophils # 0.2 10*3/uL (0.0-0.87); Hematocrit 23.3 VOL% (42.0-52.0); Hemoglobin 7.8 GM/DL (14.0-18.0); Immature Granulocytes % 1.2 %; Immature Granulocytes Absolute 0.07 #; Lymphocytes # 0.4 10*3/uL (1.4-4.0); Mean Corpuscular HGB Conc 33.5 GM/DL (32-36); Mean Corpuscular Volume 101.3 FL (87-102); Mean Platelet Volume 9.2 FL (9.6-12.0); Monocytes % 18.9 % (1.7-12.7); Neutrophils % 69.5 % (38.7-73.9); Platelet Count 67 T/CUMM (130-400); Red Cell Distribution Width 28.1 % (9.3-17.3); White Blood Count 5.6 T/CUMM (4-12)
[2019-01-28 06:18] LABS: INR 1.8; PT Patient Result 19.7 SECS (9.6-12.2)
[2019-01-28 06:28] LABS: Band Neutrophils 1 % (0-10); Eosinophils 1 % (0-10); Hypochromasia 1+; Lymphocytes 5 % (20-55); Platelet Estimate Decreased; Segmented Neutrophils 78 % (50-85); Total Cells Counted 100
[2019-01-28 06:51] LABS: Albumin 2.6 G/DL (3.4-5.0); Bilirubin,Direct 4.32 MG/DL (0.0-0.20); Bilirubin,Indirect 9.2 MG/DL (0.0-1.0); Osmolality,Calculated 264.9 MOS/KG (273-304)
[2019-01-28 06:55] LABS: Bilirubin,Total 13.5 MG/DL (0.2-1.0)
[2019-01-28] MEDS: metOLazone 5 MG TABLET PO SCH (09:05)
[2019-01-28] MEDS: PANTOPRAZOLE 40 MG TABLET PO SCH (09:05)
[2019-01-28] MEDS: BENZONATATE 100 MG CAPSULE PO SCH ×2 (09:05→20:52)
[2019-01-28] MEDS: FERROUS SULFATE 325 MG TABLET PO SCH (09:06)
[2019-01-28] MEDS: POTASSIUM CHLORIDE 20 MEQ TABLET PO SCH ×3 (09:07→20:52)
[2019-01-28] MEDS: MAGNESIUM CHLORIDE 64 MG TABLET PO SCH ×3 (09:07→20:52)
[2019-01-28] MEDS: FUROSEMIDE 40 MG/4 ML VIAL IV SCH ×3 (09:08→20:53)
[2019-01-28] MEDS ORDERED: SODIUM CHLORIDE 0.9% 1,000 ML IV PRN ×2 (13:45→13:55)
[2019-01-28] MEDS: traZODone 50 MG TABLET PO PRN (21:18)
[2019-01-28] MEDS: traMADol 50 MG TABLET PO PRN (21:47)
[2019-01-29] MEDS: ALBUTEROL/IPRATROPIUM 3 ML NEB RESP TX SCH ×4 (00:04→18:59)
[2019-01-29] MEDS: ONDANSETRON 4 MG/2 ML VIAL IV SCH ×4 (00:10→18:36)
[2019-01-29] MEDS: LACTULOSE 20 GM/30 ML UDCUP PO SCH ×4 (03:22→21:29)
[2019-01-29 06:07] LABS: Basophils % 0.4 % (0.0-0.8); Eosinophils # 0.1 10*3/uL (0.0-0.87); Eosinophils % 2.8 % (0.00-10.9); Hematocrit 20.2 VOL% (42.0-52.0); Hemoglobin 6.6 GM/DL (14.0-18.0); Immature Granulocytes % 1.2 %; Immature Granulocytes Absolute 0.06 #; Lymphocytes # 0.5 10*3/uL (1.4-4.0); Lymphocytes % 9.3 % (21.2-54.2); Mean Corpuscular HGB Conc 32.7 GM/DL (32-36); Mean Corpuscular Volume 103.6 FL (87-102); Monocytes % 17.4 % (1.7-12.7); Neutrophils % 68.9 % (38.7-73.9); Platelet Count 77 T/CUMM (130-400); Red Blood Count 1.95 MC/CUMM (3.8-5.5); Red Cell Distribution Width 27.9 % (9.3-17.3)
[2019-01-29 06:17] LABS: INR 1.4; PT Patient Result 15.4 SECS (9.6-12.2)
[2019-01-29 06:28] LABS: Eosinophils 7 % (0-10); Hypochromasia 1+; Lymphocytes 11 % (20-55); Macrocytosis Slight; Platelet Estimate Decreased; Polychromasia Slight; Segmented Neutrophils 71 % (50-85); Total Cells Counted 100
[2019-01-29 06:29] LABS: Albumin 2.9 G/DL (3.4-5.0); Bilirubin,Direct 4.13 MG/DL (0.0-0.20); Bilirubin,Indirect 9.6 MG/DL (0.0-1.0); Calcium 8.8 MG/DL (8.5-10.1); Osmolality,Calculated 261.2 MOS/KG (273-304); Total Protein 6.4 G/DL (6.4-8.3)
[2019-01-29 06:33] LABS: Bilirubin,Total 13.7 MG/DL (0.2-1.0)
[2019-01-29] MEDS ORDERED: SODIUM CHLORIDE 0.9% 1,000 ML IV PRN (07:07)
[2019-01-29] MEDS: POTASSIUM CHLORIDE 20 MEQ TABLET PO SCH ×3 (09:00→21:30)
[2019-01-29] MEDS: BENZONATATE 100 MG CAPSULE PO SCH ×2 (09:00→21:29)
[2019-01-29] MEDS: PANTOPRAZOLE 40 MG TABLET PO SCH (09:00)
[2019-01-29] MEDS: FERROUS SULFATE 325 MG TABLET PO SCH (09:00)
[2019-01-29] MEDS: MAGNESIUM CHLORIDE 64 MG TABLET PO SCH ×3 (09:00→21:29)
[2019-01-29] MEDS: metOLazone 5 MG TABLET PO SCH (09:00)
[2019-01-29] MEDS: FUROSEMIDE 40 MG/4 ML VIAL IV SCH ×3 (09:01→21:30)
[2019-01-29] MEDS ORDERED: ceFAZolin 2,000 MG in PREMIX 1 EACH IV ONE (10:00)
[2019-01-29] MEDS: LORazepam 2 MG/1 ML VIAL IM PRN ×2 (15:26→22:00)
[2019-01-29 23:20] LABS: Hematocrit 22.2 VOL% (42.0-52.0); Hemoglobin 7.5 GM/DL (14.0-18.0)
[2019-01-30] MEDS: ONDANSETRON 4 MG/2 ML VIAL IV SCH ×4 (00:21→18:32)
[2019-01-30] MEDS: ALBUTEROL/IPRATROPIUM 3 ML NEB RESP TX SCH ×4 (00:38→19:28)
[2019-01-30] MEDS: traMADol 50 MG TABLET PO PRN (01:38)
[2019-01-30] MEDS: traZODone 50 MG TABLET PO PRN (01:38)
[2019-01-30] MEDS: LACTULOSE 20 GM/30 ML UDCUP PO SCH ×4 (03:30→23:18)
[2019-01-30 06:02] LABS: Basophils % 0.4 % (0.0-0.8); Eosinophils # 0.1 10*3/uL (0.0-0.87); Eosinophils % 2.4 % (0.00-10.9); Hematocrit 23.1 VOL% (42.0-52.0); Hemoglobin 7.8 GM/DL (14.0-18.0); Immature Granulocytes % 0.9 %; Immature Granulocytes Absolute 0.04 #; Lymphocytes # 0.4 10*3/uL (1.4-4.0); Lymphocytes % 8.6 % (21.2-54.2); Mean Corpuscular HGB Conc 33.8 GM/DL (32-36); Mean Corpuscular Volume 98.7 FL (87-102); Mean Platelet Volume 9.1 FL (9.6-12.0); Monocytes % 15.8 % (1.7-12.7); Neutrophils % 71.9 % (38.7-73.9); Red Blood Count 2.34 MC/CUMM (3.8-5.5); Red Cell Distribution Width 27.3 % (9.3-17.3); White Blood Count 4.6 T/CUMM (4-12)
[2019-01-30 06:05] LABS: Platelet Count 64 T/CUMM (130-400)
[2019-01-30 06:07] LABS: INR 1.7
[2019-01-30 06:37] LABS: Band Neutrophils 1 % (0-10); Eosinophils 3 % (0-10); Hypochromasia 1+; Lymphocytes 4 % (20-55); Macrocytosis Slight; Platelet Estimate Decreased; Polychromasia Slight; Segmented Neutrophils 78 % (50-85); Total Cells Counted 100
[2019-01-30 06:39] LABS: Albumin 2.8 G/DL (3.4-5.0); Bilirubin,Direct 3.99 MG/DL (0.0-0.20); Bilirubin,Indirect 9.2 MG/DL (0.0-1.0); Calcium 9.1 MG/DL (8.5-10.1); Osmolality,Calculated 265.9 MOS/KG (273-304); Total Protein 6.2 G/DL (6.4-8.3)
[2019-01-30 06:40] LABS: Bilirubin,Total 13.2 MG/DL (0.2-1.0)
[2019-01-30] MEDS ORDERED: TISSUE ADHESIVE 1 EACH APPLICATOR TOP ONE (12:27)
[2019-01-30] MEDS ORDERED: DEXAMETHASONE 10 MG/1 ML VIAL ONE (12:27)
[2019-01-30] MEDS ORDERED: LIDOCAINE 1% 20 ML VIAL ONE (12:27)
[2019-01-30] MEDS: POTASSIUM CHLORIDE 20 MEQ TABLET PO SCH ×4 (12:54→23:18)
[2019-01-30] MEDS: MAGNESIUM CHLORIDE 64 MG TABLET PO SCH ×5 (12:55→23:18)
[2019-01-30] MEDS ORDERED: ceFAZolin 1,000 MG VIAL ONE (13:35)
[2019-01-30] MEDS ORDERED: fentaNYL 100 MCG/2 ML VIAL ONE (14:10)
[2019-01-30] MEDS: FUROSEMIDE 40 MG/4 ML VIAL IV SCH ×3 (14:37→23:10)
[2019-01-30] MEDS: FERROUS SULFATE 325 MG TABLET PO SCH (15:39)
[2019-01-30] MEDS: PANTOPRAZOLE 40 MG TABLET PO SCH (15:39)
[2019-01-30] MEDS: metOLazone 5 MG TABLET PO SCH (15:40)
[2019-01-30] MEDS: BENZONATATE 100 MG CAPSULE PO SCH ×2 (15:40→23:18)
[2019-01-31 00:04] LABS: INR 1.5; PT Patient Result 16.4 SECS (9.6-12.2)
[2019-01-31] MEDS: ONDANSETRON 4 MG/2 ML VIAL IV SCH ×4 (00:41→18:55)
[2019-01-31] MEDS: ALBUTEROL/IPRATROPIUM 3 ML NEB RESP TX SCH ×4 (01:16→19:29)
[2019-01-31 05:35] LABS: Basophils % 0.4 % (0.0-0.8); Eosinophils # 0.1 10*3/uL (0.0-0.87); Eosinophils % 1.1 % (0.00-10.9); Hematocrit 23.5 VOL% (42.0-52.0); Hemoglobin 7.7 GM/DL (14.0-18.0); Immature Granulocytes % 0.9 %; Immature Granulocytes Absolute 0.04 #; Lymphocytes # 0.2 10*3/uL (1.4-4.0); Lymphocytes % 4.6 % (21.2-54.2); Mean Corpuscular HGB Conc 32.8 GM/DL (32-36); Mean Corpuscular Volume 102.2 FL (87-102); Mean Platelet Volume 9.2 FL (9.6-12.0); Monocytes % 14.3 % (1.7-12.7); NRBC # 0.02 10*3/uL; Neutrophils % 78.7 % (38.7-73.9); Red Cell Distribution Width 27.6 % (9.3-17.3); White Blood Count 4.6 T/CUMM (4-12)
[2019-01-31 05:36] LABS: Platelet Count 59 T/CUMM (130-400)
[2019-01-31 05:49] LABS: Albumin 3.1 G/DL (3.4-5.0); Bilirubin,Direct 3.74 MG/DL (0.0-0.20); Bilirubin,Indirect 8.5 MG/DL (0.0-1.0); Calcium 9.4 MG/DL (8.5-10.1); Osmolality,Calculated 265.7 MOS/KG (273-304); Total Protein 6.4 G/DL (6.4-8.3)
[2019-01-31 05:57] LABS: Eosinophils 2 % (0-10); Lymphocytes 7 % (20-55); Metamyelocytes 1 %; Platelet Estimate Decreased; Polychromasia Few; Segmented Neutrophils 88 % (50-85); Total Cells Counted 100
[2019-01-31 05:58] LABS: Hypochromasia 1+; Microcytosis 1+
[2019-01-31 06:02] LABS: Bilirubin,Total 12.2 MG/DL (0.2-1.0)
[2019-01-31] MEDS: LACTULOSE 20 GM/30 ML UDCUP PO SCH ×4 (06:40→21:24)
[2019-01-31] MEDS: RIFAXIMIN 550 MG TABLET PO SCH ×3 (12:00→21:24)
[2019-01-31] MEDS: MAGNESIUM CHLORIDE 64 MG TABLET PO SCH ×2 (13:00→13:26)
[2019-01-31] MEDS: POTASSIUM CHLORIDE 20 MEQ TABLET PO SCH (13:00)
[2019-01-31] MEDS: FERROUS SULFATE 325 MG TABLET PO SCH (13:25)
[2019-01-31] MEDS: SPIRONOLACTONE 100 MG TABLET PO SCH (13:25)
[2019-01-31] MEDS: BENZONATATE 100 MG CAPSULE PO SCH ×2 (13:26→21:24)
[2019-01-31] MEDS: FUROSEMIDE 40 MG/4 ML VIAL IV SCH ×3 (13:26→21:25)
[2019-01-31] MEDS: PANTOPRAZOLE 40 MG TABLET PO SCH (13:26)
[2019-01-31] MEDS: POTASSIUM CHLORIDE RIDER 10 MEQ in PREMIX 1 EACH IV SCH ×4 (13:40→18:35)
[2019-01-31] MEDS ORDERED: LORazepam 2 MG/1 ML VIAL ONE (14:02)
[2019-01-31] MEDS: LORazepam 2 MG/1 ML VIAL IM PRN ×2 (14:05→21:28)
[2019-01-31] MEDS: POTASSIUM CHLORIDE RIDER 10 MEQ in PREMIX 1 EACH IV PRN (16:30)
[2019-01-31] MEDS: MAGNESIUM OXIDE 400 MG TABLET PO SCH ×2 (16:40→21:24)
[2019-01-31] MEDS: POTASSIUM CHLORIDE 20 MEQ/15 ML UDCUP PER TUBE SCH ×2 (16:40→21:24)
[2019-02-01] MEDS: ONDANSETRON 4 MG/2 ML VIAL IV SCH ×4 (00:01→18:28)
[2019-02-01] MEDS: ALBUTEROL/IPRATROPIUM 3 ML NEB RESP TX SCH ×4 (00:53→19:59)
[2019-02-01] MEDS: LORazepam 2 MG/1 ML VIAL IM PRN (01:45)
[2019-02-01] MEDS: LACTULOSE 20 GM/30 ML UDCUP PO SCH ×5 (03:08→22:32)
[2019-02-01 05:19] LABS: Basophils % 0.3 % (0.0-0.8); Eosinophils % 0.3 % (0.00-10.9); Hematocrit 22.9 VOL% (42.0-52.0); Hemoglobin 7.5 GM/DL (14.0-18.0); Immature Granulocytes % 1.2 %; Immature Granulocytes Absolute 0.07 #; Lymphocytes # 0.3 10*3/uL (1.4-4.0); Lymphocytes % 4.5 % (21.2-54.2); Mean Corpuscular HGB Conc 32.8 GM/DL (32-36); Mean Corpuscular Volume 104.1 FL (87-102); Mean Platelet Volume 9.2 FL (9.6-12.0); Monocytes % 18.6 % (1.7-12.7); NRBC # 0.03 10*3/uL; Neutrophils % 75.1 % (38.7-73.9); Platelet Count 63 T/CUMM (130-400); Red Cell Distribution Width 27.2 % (9.3-17.3); White Blood Count 5.7 T/CUMM (4-12)
[2019-02-01 05:43] LABS: Albumin 2.8 G/DL (3.4-5.0); Bilirubin,Direct 3.9 MG/DL (0.0-0.20); Bilirubin,Indirect 7.8 MG/DL (0.0-1.0); Bilirubin,Total 11.7 MG/DL (0.2-1.0); Calcium 9.1 MG/DL (8.5-10.1); Osmolality,Calculated 272.2 MOS/KG (273-304); Total Protein 6.2 G/DL (6.4-8.3)
[2019-02-01 05:54] LABS: Band Neutrophils 1 % (0-10); Lymphocytes 8 % (20-55); Metamyelocytes 2 %; Nucleated Red Blood Cells 1 (0-5); Platelet Estimate Decreased; Polychromasia Few; Segmented Neutrophils 77 % (50-85); Total Cells Counted 100
[2019-02-01] MEDS: POTASSIUM CHLORIDE RIDER 10 MEQ in PREMIX 1 EACH IV PRN ×4 (06:07→10:07)
[2019-02-01] MEDS: MAGNESIUM SULF RIDER 2 GM in PREMIX 1 EACH IV PRN ×2 (06:08→10:00)
[2019-02-01] MEDS: POTASSIUM CHLORIDE 20 MEQ TABLET PO SCH (09:47)
[2019-02-01] MEDS: POTASSIUM CHLORIDE 20 MEQ/15 ML UDCUP PER TUBE SCH ×4 (10:03→22:22)
[2019-02-01] MEDS: MAGNESIUM OXIDE 400 MG TABLET PO SCH ×4 (10:03→22:22)
[2019-02-01] MEDS: SPIRONOLACTONE 100 MG TABLET PO SCH (10:03)
[2019-02-01] MEDS: PANTOPRAZOLE 40 MG TABLET PO SCH (10:04)
[2019-02-01] MEDS: metOLazone 5 MG TABLET PO SCH (10:04)
[2019-02-01] MEDS: FERROUS SULFATE 325 MG TABLET PO SCH (10:04)
[2019-02-01] MEDS: FUROSEMIDE 40 MG/4 ML VIAL IV SCH ×3 (10:04→23:16)
[2019-02-01] MEDS: BENZONATATE 100 MG CAPSULE PO SCH ×2 (10:05→22:22)
[2019-02-01] MEDS: RIFAXIMIN 550 MG TABLET PO SCH ×2 (10:10→22:22)
[2019-02-01] MEDS: cefTRIAXone 1,000 MG in SYRINGE 1 EACH IV SCH (10:34)
[2019-02-01 11:44] LABS: Amorphous Crystals,Urine Occasional /HPF (Few); Apearance,Urine CLEAR (Clear); Bilirubin,Urine Negative (Negative); Blood, Urine Moderate mg/dL (Negative); Glucose,Urine (UA) Negative (Negative); Hyaline Casts,Urine 1 /LPF (0-3); Ketones,Urine 5 mg/dL (Negative); Mucus,Urine Occasional /LPF (Occasional); Nitrite,Urine Negative (Negative); Protein,Urine Negative; RBC,Urine 94 /HPF (0-4); Urine Color Yellow (Yellow); Urine Specific Gravity 1.012 (1.001-1.035); WBC,Urine 10 /HPF (0-6)
[2019-02-02] MEDS: LACTULOSE 320 GM/480 ML BOTTLE RECTAL SCH ×2 (00:52→06:13)
[2019-02-02] MEDS: ONDANSETRON 4 MG/2 ML VIAL IV SCH ×4 (00:55→17:32)
[2019-02-02] MEDS: ALBUTEROL/IPRATROPIUM 3 ML NEB RESP TX SCH ×4 (02:45→19:36)
[2019-02-02 08:01] LABS: Basophils % 0.4 % (0.0-0.8); Eosinophils # 0.1 10*3/uL (0.0-0.87); Eosinophils % 2.6 % (0.00-10.9); Hematocrit 24.1 VOL% (42.0-52.0); Hemoglobin 7.9 GM/DL (14.0-18.0); Immature Granulocytes % 0.7 %; Immature Granulocytes Absolute 0.04 #; Lymphocytes # 0.9 10*3/uL (1.4-4.0); Lymphocytes % 15.7 % (21.2-54.2); Mean Corpuscular HGB Conc 32.8 GM/DL (32-36); Mean Corpuscular Volume 103.4 FL (87-102); Mean Platelet Volume 9.6 FL (9.6-12.0); Monocytes % 12.5 % (1.7-12.7); Neutrophils % 68.1 % (38.7-73.9); Platelet Count 55 T/CUMM (130-400); Red Blood Count 2.33 MC/CUMM (3.8-5.5); Red Cell Distribution Width 26.4 % (9.3-17.3); White Blood Count 5.4 T/CUMM (4-12)
[2019-02-02 08:14] LABS: Calcium 9.3 MG/DL (8.5-10.1); Osmolality,Calculated 272.1 MOS/KG (273-304)
[2019-02-02 08:18] LABS: Albumin 2.8 G/DL (3.4-5.0); Bilirubin,Direct 4.32 MG/DL (0.0-0.20); Bilirubin,Indirect 7.4 MG/DL (0.0-1.0); Bilirubin,Total 11.7 MG/DL (0.2-1.0); Total Protein 6.4 G/DL (6.4-8.3)
[2019-02-02 08:20] LABS: Hypochromasia 1+; Macrocytosis Slight; Platelet Estimate Decreased; Polychromasia Slight
[2019-02-02] MEDS: RIFAXIMIN 550 MG TABLET PO SCH ×2 (09:08→21:50)
[2019-02-02] MEDS: LACTULOSE 20 GM/30 ML UDCUP PO SCH ×3 (09:08→17:32)
[2019-02-02] MEDS: POTASSIUM CHLORIDE 20 MEQ/15 ML UDCUP PER TUBE SCH ×4 (09:08→21:49)
[2019-02-02] MEDS: PANTOPRAZOLE 40 MG TABLET PO SCH (09:09)
[2019-02-02] MEDS: MAGNESIUM OXIDE 400 MG TABLET PO SCH ×4 (09:09→21:49)
[2019-02-02] MEDS: BENZONATATE 100 MG CAPSULE PO SCH ×2 (09:09→21:50)
[2019-02-02] MEDS: FERROUS SULFATE 325 MG TABLET PO SCH (09:09)
[2019-02-02] MEDS: metOLazone 5 MG TABLET PO SCH (09:10)
[2019-02-02] MEDS: SPIRONOLACTONE 100 MG TABLET PO SCH (09:27)
[2019-02-02] MEDS: cefTRIAXone 1,000 MG in SYRINGE 1 EACH IV SCH (09:43)
[2019-02-02] MEDS: FUROSEMIDE 40 MG/4 ML VIAL IV SCH ×3 (09:44→21:49)
[2019-02-02 13:33] LABS: PT Patient Result 21.8 SECS (9.6-12.2)
[2019-02-02] MEDS ORDERED: LACTULOSE 20 GM/30 ML UDCUP PO ONE (16:37)
[2019-02-03] MEDS: LACTULOSE 20 GM/30 ML UDCUP PO SCH ×4 (00:29→17:28)
[2019-02-03] MEDS: ONDANSETRON 4 MG/2 ML VIAL IV SCH ×4 (00:29→17:28)
[2019-02-03] MEDS: ALBUTEROL/IPRATROPIUM 3 ML NEB RESP TX SCH ×4 (01:00→19:53)
[2019-02-03 05:03] LABS: Basophils % 0.7 % (0.0-0.8); Eosinophils # 0.2 10*3/uL (0.0-0.87); Eosinophils % 2.9 % (0.00-10.9); Hematocrit 24.6 VOL% (42.0-52.0); Immature Granulocytes % 0.4 %; Immature Granulocytes Absolute 0.02 #; Lymphocytes # 0.4 10*3/uL (1.4-4.0); Lymphocytes % 6.5 % (21.2-54.2); Mean Corpuscular HGB Conc 32.5 GM/DL (32-36); Mean Corpuscular Volume 105.6 FL (87-102); Mean Platelet Volume 9.3 FL (9.6-12.0); Monocytes % 19.2 % (1.7-12.7); Neutrophils % 70.3 % (38.7-73.9); Platelet Count 68 T/CUMM (130-400); Red Blood Count 2.33 MC/CUMM (3.8-5.5); Red Cell Distribution Width 26.6 % (9.3-17.3); White Blood Count 5.6 T/CUMM (4-12)
[2019-02-03 05:22] LABS: Eosinophils 4 % (0-10); Hypochromasia 1+; Lymphocytes 10 % (20-55); Microcytosis 1+; Platelet Estimate Decreased; Polychromasia Few; Segmented Neutrophils 78 % (50-85); Total Cells Counted 100
[2019-02-03 05:28] LABS: Albumin 2.9 G/DL (3.4-5.0); Calcium 9.7 MG/DL (8.5-10.1); Osmolality,Calculated 282.5 MOS/KG (273-304); Total Protein 6.7 G/DL (6.4-8.3)
[2019-02-03 05:32] LABS: Bilirubin,Total 12.3 MG/DL (0.2-1.0)
[2019-02-03 05:43] LABS: PT Patient Result 22.1 SECS (9.6-12.2)
[2019-02-03] MEDS ORDERED: POTASSIUM CHLORIDE INJ 50 MEQ in SODIUM CHLORIDE 0.9% 475 ML IV ONE (06:00)
[2019-02-03] MEDS: MAGNESIUM SULF RIDER 2 GM in PREMIX 1 EACH IV PRN ×2 (07:38→09:59)
[2019-02-03] MEDS: POTASSIUM CHLORIDE 20 MEQ/15 ML UDCUP PER TUBE SCH ×4 (09:11→21:01)
[2019-02-03] MEDS: RIFAXIMIN 550 MG TABLET PO SCH ×2 (09:11→21:00)
[2019-02-03] MEDS: BENZONATATE 100 MG CAPSULE PO SCH ×2 (09:12→21:00)
[2019-02-03] MEDS: SPIRONOLACTONE 100 MG TABLET PO SCH (09:12)
[2019-02-03] MEDS: MAGNESIUM OXIDE 400 MG TABLET PO SCH ×4 (09:12→21:00)
[2019-02-03] MEDS: FUROSEMIDE 40 MG/4 ML VIAL IV SCH ×3 (09:12→21:01)
[2019-02-03] MEDS: PANTOPRAZOLE 40 MG TABLET PO SCH (09:13)
[2019-02-03] MEDS: metOLazone 5 MG TABLET PO SCH (09:13)
[2019-02-03] MEDS: cefTRIAXone 1,000 MG in SYRINGE 1 EACH IV SCH (09:13)
[2019-02-03] MEDS: FERROUS SULFATE 325 MG TABLET PO SCH (09:13)
[2019-02-04] MEDS: ONDANSETRON 4 MG/2 ML VIAL IV SCH ×4 (00:14→18:33)
[2019-02-04] MEDS: LACTULOSE 20 GM/30 ML UDCUP PO SCH ×4 (00:14→18:33)
[2019-02-04] MEDS: ALBUTEROL/IPRATROPIUM 3 ML NEB RESP TX SCH ×4 (01:55→19:15)
[2019-02-04] MEDS: traZODone 50 MG TABLET PO PRN (02:52)
[2019-02-04] MEDS: MAGNESIUM OXIDE 400 MG TABLET PO SCH ×4 (09:16→20:13)
[2019-02-04] MEDS: FERROUS SULFATE 325 MG TABLET PO SCH (09:16)
[2019-02-04] MEDS: BENZONATATE 100 MG CAPSULE PO SCH ×2 (09:16→20:13)
[2019-02-04] MEDS: RIFAXIMIN 550 MG TABLET PO SCH ×2 (09:16→20:13)
[2019-02-04] MEDS: SPIRONOLACTONE 100 MG TABLET PO SCH (09:16)
[2019-02-04] MEDS: PANTOPRAZOLE 40 MG TABLET PO SCH (09:16)
[2019-02-04] MEDS: FUROSEMIDE 40 MG/4 ML VIAL IV SCH ×3 (09:17→20:10)
[2019-02-04] MEDS: metOLazone 5 MG TABLET PO SCH (09:17)
[2019-02-04] MEDS: POTASSIUM CHLORIDE 20 MEQ/15 ML UDCUP PER TUBE SCH ×2 (09:20→13:45)
[2019-02-04] MEDS: cefTRIAXone 1,000 MG in SYRINGE 1 EACH IV SCH (09:20)
[2019-02-04 11:20] LABS: Apearance,Urine CLEAR (Clear); Bacteria,Urine Occasional /HPF (Few); Bilirubin,Urine Negative (Negative); Blood, Urine Large mg/dL (Negative); Glucose,Urine (UA) Negative (Negative); Hyaline Casts,Urine 17 /LPF (0-3); Ketones,Urine Negative (Negative); Mucus,Urine Occasional /LPF (Occasional); Nitrite,Urine Negative (Negative); Protein,Urine Negative; RBC,Urine 32 /HPF (0-4); Urine Color Amber (Yellow); Urine Specific Gravity 1.009 (1.001-1.035); WBC,Urine 13 /HPF (0-6)
[2019-02-04] MEDS: POTASSIUM CHLORIDE 20 MEQ TABLET PO SCH ×3 (14:04→20:13)
[2019-02-05] MEDS: LACTULOSE 20 GM/30 ML UDCUP PO SCH ×4 (00:15→17:30)
[2019-02-05] MEDS: ONDANSETRON 4 MG/2 ML VIAL IV SCH ×4 (00:15→17:30)
[2019-02-05] MEDS: ALBUTEROL/IPRATROPIUM 3 ML NEB RESP TX SCH ×4 (00:51→19:24)
[2019-02-05] MEDS: traZODone 50 MG TABLET PO PRN ×2 (02:03→21:25)
[2019-02-05 05:50] LABS: Basophils # 0.1 10*3/uL (0.0-0.2); Eosinophils # 0.2 10*3/uL (0.0-0.87); Eosinophils % 4.9 % (0.00-10.9); Hematocrit 25.4 VOL% (42.0-52.0); Hemoglobin 8.1 GM/DL (14.0-18.0); Immature Granulocytes % 0.6 %; Immature Granulocytes Absolute 0.03 #; Lymphocytes # 0.5 10*3/uL (1.4-4.0); Lymphocytes % 9.4 % (21.2-54.2); Mean Corpuscular HGB Conc 31.9 GM/DL (32-36); Mean Corpuscular Volume 106.7 FL (87-102); Monocytes % 15.7 % (1.7-12.7); Neutrophils % 68.4 % (38.7-73.9); Red Blood Count 2.38 MC/CUMM (3.8-5.5); Red Cell Distribution Width 26.1 % (9.3-17.3); White Blood Count 4.9 T/CUMM (4-12)
[2019-02-05 05:53] LABS: Platelet Count 72 T/CUMM (130-400)
[2019-02-05 06:20] LABS: Eosinophils 4 % (0-10); Lymphocytes 4 % (20-55); Segmented Neutrophils 76 % (50-85); Total Cells Counted 100
[2019-02-05 06:21] LABS: Hypochromasia 1+; Macrocytosis 1+; Polychromasia Slight
[2019-02-05 06:22] LABS: Platelet Estimate Decreased; Target Cells Slight
[2019-02-05 06:44] LABS: Albumin 2.6 G/DL (3.4-5.0); Bilirubin,Direct 3.42 MG/DL (0.0-0.20); Bilirubin,Indirect 5.9 MG/DL (0.0-1.0); Bilirubin,Total 9.3 MG/DL (0.2-1.0); Calcium 9.3 MG/DL (8.5-10.1); Osmolality,Calculated 265.1 MOS/KG (273-304); Total Protein 6.5 G/DL (6.4-8.3)
[2019-02-05] MEDS ORDERED: MAGNESIUM CITRATE 300 ML BOTTLE PO ONE (07:15)
[2019-02-05] MEDS: SPIRONOLACTONE 100 MG TABLET PO SCH (09:21)
[2019-02-05] MEDS: MAGNESIUM OXIDE 400 MG TABLET PO SCH ×4 (09:21→20:46)
[2019-02-05] MEDS: BENZONATATE 100 MG CAPSULE PO SCH ×2 (09:22→20:45)
[2019-02-05] MEDS: POTASSIUM CHLORIDE 20 MEQ TABLET PO SCH ×3 (09:22→20:46)
[2019-02-05] MEDS: PANTOPRAZOLE 40 MG TABLET PO SCH (09:22)
[2019-02-05] MEDS: FERROUS SULFATE 325 MG TABLET PO SCH (09:22)
[2019-02-05] MEDS: RIFAXIMIN 550 MG TABLET PO SCH ×2 (09:22→20:46)
[2019-02-05] MEDS: FUROSEMIDE 40 MG/4 ML VIAL IV SCH ×3 (09:23→20:46)
[2019-02-05] MEDS: cefTRIAXone 1,000 MG in SYRINGE 1 EACH IV SCH (09:23)
[2019-02-06] MEDS: LACTULOSE 20 GM/30 ML UDCUP PO SCH ×3 (00:14→12:45)
[2019-02-06] MEDS: ONDANSETRON 4 MG/2 ML VIAL IV SCH ×3 (00:15→12:51)
[2019-02-06] MEDS: ALBUTEROL/IPRATROPIUM 3 ML NEB RESP TX SCH ×3 (03:17→14:19)
[2019-02-06 05:33] LABS: Basophils % 0.7 % (0.0-0.8); Eosinophils # 0.3 10*3/uL (0.0-0.87); Hematocrit 24.8 VOL% (42.0-52.0); Immature Granulocytes % 0.8 %; Immature Granulocytes Absolute 0.05 #; Lymphocytes # 0.5 10*3/uL (1.4-4.0); Lymphocytes % 7.9 % (21.2-54.2); Mean Corpuscular HGB Conc 32.3 GM/DL (32-36); Mean Corpuscular Volume 105.5 FL (87-102); Mean Platelet Volume 10.1 FL (9.6-12.0); Monocytes % 14.2 % (1.7-12.7); Neutrophils % 71.4 % (38.7-73.9); Platelet Count 76 T/CUMM (130-400); Red Blood Count 2.35 MC/CUMM (3.8-5.5); Red Cell Distribution Width 25.7 % (9.3-17.3); White Blood Count 6.1 T/CUMM (4-12)
[2019-02-06 05:49] LABS: Albumin 2.5 G/DL (3.4-5.0); Bilirubin,Direct 3.28 MG/DL (0.0-0.20); Bilirubin,Indirect 5.2 MG/DL (0.0-1.0); Bilirubin,Total 8.5 MG/DL (0.2-1.0); Calcium 9.1 MG/DL (8.5-10.1); Osmolality,Calculated 269.9 MOS/KG (273-304); Total Protein 6.6 G/DL (6.4-8.3)
[2019-02-06 06:11] LABS: Hypochromasia 1+; Macrocytosis 1+
[2019-02-06 06:12] LABS: Anisocytosis 1+; Platelet Estimate Decreased; Target Cells Slight
[2019-02-06] MEDS: BENZONATATE 100 MG CAPSULE PO SCH (09:42)
[2019-02-06] MEDS: FERROUS SULFATE 325 MG TABLET PO SCH (09:42)
[2019-02-06] MEDS: POTASSIUM CHLORIDE 20 MEQ TABLET PO SCH ×2 (09:43→14:22)
[2019-02-06] MEDS: MAGNESIUM OXIDE 400 MG TABLET PO SCH ×2 (09:43→14:22)
[2019-02-06] MEDS: SPIRONOLACTONE 100 MG TABLET PO SCH (09:43)
[2019-02-06] MEDS: PANTOPRAZOLE 40 MG TABLET PO SCH (09:43)
[2019-02-06] MEDS: RIFAXIMIN 550 MG TABLET PO SCH (09:44)
[2019-02-06] MEDS: FUROSEMIDE 40 MG/4 ML VIAL IV SCH ×2 (12:45→14:29)
[2019-02-06] MEDS: cefTRIAXone 1,000 MG in SYRINGE 1 EACH IV SCH (12:46)
[2019-02-06 12:57] LABS: INR 1.7; PT Patient Result 18.1 SECS (9.6-12.2)
[2019-02-06 16:02] VITALS: BP 114/55
== END 2019-02-06 16:09 | disposition hospice, home (50) ==
LOC: N.ED 15:56 → N.EDINP 19:15 → N.2E 19:32 → N.ICU 01-31 12:03 → N.5E 02-04 15:25
PROVIDERS: ADMIT Family Medicine; ATTEND Family Medicine

== ENCOUNTER 2019-02-16 15:29 | Observation (INO) ==
[2019-02-16] MEDS ORDERED: ONDANSETRON 4 MG/2 ML VIAL IV PRN (15:54)
[2019-02-16] MEDS ORDERED: ACETAMINOPHEN 325 MG TABLET PO PRN (15:54)
[2019-02-16] MEDS ORDERED: SODIUM CHLORIDE 0.9% 1,000 ML IV PRN (16:27)
[2019-02-16] MEDS ORDERED: LACTULOSE 20 GM/30 ML UDCUP PO PRN (19:55)
[2019-02-16] MEDS: LACTULOSE 20 GM/30 ML UDCUP PO SCH (21:57)
[2019-02-16] MEDS: DOCUSATE SODIUM 100 MG CAPSULE PO SCH (21:57)
[2019-02-16] MEDS: RIFAXIMIN 550 MG TABLET PO SCH (21:57)
[2019-02-16] MEDS: PROPRANOLOL 10 MG TABLET PO SCH (21:58)
[2019-02-16] MEDS: BENZONATATE 100 MG CAPSULE PO SCH (21:58)
[2019-02-16] MEDS: traZODone 50 MG TABLET PO PRN (23:25)
[2019-02-17] MEDS ORDERED: FUROSEMIDE 20 MG/2 ML VIAL IV ONE (01:00)
[2019-02-17 06:38] LABS: Basophils % 0.5 % (0.0-0.8); Eosinophils # 0.2 10*3/uL (0.0-0.87); Eosinophils % 3.5 % (0.00-10.9); Hematocrit 22.1 VOL% (42.0-52.0); Hemoglobin 7.2 GM/DL (14.0-18.0); Immature Granulocytes % 1.7 %; Immature Granulocytes Absolute 0.11 #; Lymphocytes # 0.4 10*3/uL (1.4-4.0); Mean Corpuscular HGB Conc 32.6 GM/DL (32-36); Mean Corpuscular Volume 105.2 FL (87-102); Mean Platelet Volume 9.4 FL (9.6-12.0); Monocytes % 15.8 % (1.7-12.7); Neutrophils % 72.5 % (38.7-73.9); Platelet Count 76 T/CUMM (130-400); Red Cell Distribution Width 23.6 % (9.3-17.3); White Blood Count 6.7 T/CUMM (4-12)
[2019-02-17 06:44] LABS: INR 1.8; PT Patient Result 19.9 SECS (9.6-12.2)
[2019-02-17 07:01] LABS: Albumin 2.2 G/DL (3.4-5.0); Bilirubin,Direct 2.69 MG/DL (0.0-0.20); Bilirubin,Indirect 5.4 MG/DL (0.0-1.0); Bilirubin,Total 8.1 MG/DL (0.2-1.0); Eosinophils 3 % (0-10); Lymphocytes 10 % (20-55); Osmolality,Calculated 265.1 MOS/KG (273-304); Platelet Estimate Decreased; Segmented Neutrophils 75 % (50-85); Total Cells Counted 100; Total Protein 5.7 G/DL (6.4-8.3)
[2019-02-17 07:02] LABS: Hypochromasia 1+; Macrocytosis Slight; Ovalocytes Slight
[2019-02-17] MEDS: BENZONATATE 100 MG CAPSULE PO SCH ×2 (09:07→22:37)
[2019-02-17] MEDS: RIFAXIMIN 550 MG TABLET PO SCH ×2 (09:08→20:48)
[2019-02-17] MEDS: SPIRONOLACTONE 50 MG TABLET PO SCH (09:08)
[2019-02-17] MEDS: FUROSEMIDE 40 MG TABLET PO SCH (09:08)
[2019-02-17] MEDS: PROPRANOLOL 10 MG TABLET PO SCH ×2 (09:08→20:49)
[2019-02-17] MEDS: PANTOPRAZOLE 40 MG TABLET PO SCH (09:08)
[2019-02-17] MEDS: LACTULOSE 20 GM/30 ML UDCUP PO SCH ×3 (09:09→20:48)
[2019-02-17] MEDS: DOCUSATE SODIUM 100 MG CAPSULE PO SCH ×2 (09:09→22:37)
[2019-02-17 12:43] LABS: Hematocrit 23.4 VOL% (42.0-52.0); Hemoglobin 7.7 GM/DL (14.0-18.0)
[2019-02-17] MEDS ORDERED: traMADol 50 MG TABLET PO PRN (13:43)
[2019-02-17 18:57] LABS: Apearance,Urine Slightly Hazy (Clear); Bacteria,Urine Many /HPF (Few); Bilirubin,Urine Negative (Negative); Blood, Urine Negative (Negative); Calcium Oxalate Crystals,Urine Occasional /HPF (Few); Glucose,Urine (UA) Negative (Negative); Hyaline Casts,Urine 47 /LPF (0-3); Ketones,Urine Negative (Negative); Mucus,Urine Occasional /LPF (Occasional); Nitrite,Urine Negative (Negative); Protein,Urine Negative; RBC,Urine 4 /HPF (0-4); Renal Epithelial Cells,Urine Occasional /HPF (<1); Squamous Epithelial Cell,Urine Occasional /HPF (0-10); Urine Color Amber (Yellow); Urine Specific Gravity 1.012 (1.001-1.035); Urine Urobilinogen < 2.0 EU/DL (0.2-1.0); WBC,Urine 17 /HPF (0-6)
[2019-02-17] MEDS: traZODone 50 MG TABLET PO PRN (20:49)
[2019-02-18 08:36] LABS: Basophils # 0.1 10*3/uL (0.0-0.2); Basophils % 1.2 % (0.0-0.8); Eosinophils # 0.3 10*3/uL (0.0-0.87); Eosinophils % 4.2 % (0.00-10.9); Hematocrit 26.1 VOL% (42.0-52.0); Hemoglobin 8.5 GM/DL (14.0-18.0); Immature Granulocytes % 1.7 %; Lymphocytes # 0.5 10*3/uL (1.4-4.0); Mean Corpuscular HGB Conc 32.6 GM/DL (32-36); Mean Corpuscular Volume 106.5 FL (87-102); Mean Platelet Volume 9.7 FL (9.6-12.0); Monocytes % 16.7 % (1.7-12.7); Neutrophils % 68.2 % (38.7-73.9); Platelet Count 85 T/CUMM (130-400); Red Blood Count 2.45 MC/CUMM (3.8-5.5); Red Cell Distribution Width 24.5 % (9.3-17.3)
[2019-02-18] MEDS: RIFAXIMIN 550 MG TABLET PO SCH (08:37)
[2019-02-18] MEDS: PANTOPRAZOLE 40 MG TABLET PO SCH (08:37)
[2019-02-18] MEDS: LACTULOSE 20 GM/30 ML UDCUP PO SCH ×2 (08:37→15:27)
[2019-02-18] MEDS: DOCUSATE SODIUM 100 MG CAPSULE PO SCH (08:38)
[2019-02-18] MEDS: FUROSEMIDE 40 MG TABLET PO SCH (08:38)
[2019-02-18] MEDS: SPIRONOLACTONE 50 MG TABLET PO SCH (08:38)
[2019-02-18] MEDS: PROPRANOLOL 10 MG TABLET PO SCH (08:38)
[2019-02-18] MEDS: BENZONATATE 100 MG CAPSULE PO SCH (08:39)
[2019-02-18 08:58] LABS: Calcium 8.2 MG/DL (8.5-10.1); Osmolality,Calculated 263.4 MOS/KG (273-304)
[2019-02-18 08:58] LABS: Band Neutrophils 2 % (0-10); Eosinophils 3 % (0-10); Lymphocytes 9 % (20-55); Segmented Neutrophils 69 % (50-85); Total Cells Counted 100
[2019-02-18 08:59] LABS: Anisocytosis 2+; Burr Cells 1+; Macrocytosis 2+; Platelet Estimate Decreased; Poikilocytosis 1+
[2019-02-18 09:01] LABS: Albumin 2.6 G/DL (3.4-5.0); Bilirubin,Direct 3.36 MG/DL (0.0-0.20); Bilirubin,Indirect 5.9 MG/DL (0.0-1.0); Bilirubin,Total 9.3 MG/DL (0.2-1.0); Total Protein 6.7 G/DL (6.4-8.3)
[2019-02-18 12:02] VITALS: BP 105/45
[2019-02-18] MEDS ORDERED: cefTRIAXone 1,000 MG in SYRINGE 1 EACH IV ONE (13:28)
[2019-02-18] MEDS ORDERED: cefTRIAXone 2,000 MG in SYRINGE 1 EACH IV ONE (14:00)
== END 2019-02-18 15:27 | disposition swing bed (61) ==
LOC: N.2E
PROVIDERS: ADMIT Family Medicine; ATTEND Family Medicine

== ENCOUNTER 2019-03-13 18:09 | Inpatient (IN) ==
[2019-03-13] MEDS ORDERED: SODIUM CHLORIDE 0.9% 1,000 ML IV STA (18:56)
[2019-03-13 19:21] LABS: ABG HCO3 17.8 MMOL/L (20-26); ABG Oxygen Saturation 97.9 % (95-100); ABG PCO2 33.9 MM HG (35-48); ABG PH 7.319 (7.35-7.45); ABG PO2 92.9 MM HG (80-95); ABG TCO2 16.6 MMOL/L (23-27); Allen Test Positive; Pt O2 Delivery Device Room Air
[2019-03-13 20:16] LABS: Basophils % 0.2 % (0.0-0.8); Eosinophils # 0.2 10*3/uL (0.0-0.87); Eosinophils % 3.6 % (0.00-10.9); Hematocrit 19.9 VOL% (42.0-52.0); Hemoglobin 6.8 GM/DL (14.0-18.0); Immature Granulocytes % 0.9 %; Immature Granulocytes Absolute 0.04 #; Lymphocytes # 0.2 10*3/uL (1.4-4.0); Lymphocytes % 5.5 % (21.2-54.2); Mean Corpuscular HGB Conc 34.2 GM/DL (32-36); Mean Corpuscular Volume 102.1 FL (87-102); Mean Platelet Volume 11.1 FL (9.6-12.0); Monocytes % 11.8 % (1.7-12.7); Red Blood Count 1.95 MC/CUMM (3.8-5.5); Red Cell Distribution Width 21.8 % (9.3-17.3); White Blood Count 4.2 T/CUMM (4-12)
[2019-03-13 20:17] LABS: Platelet Count 83 T/CUMM (130-400)
[2019-03-13 20:25] LABS: INR 1.5; PT Patient Result 16.7 SECS (9.6-12.2); Partial Thromboplastin Time 39.9 SECS (20.8-36.0)
[2019-03-13 20:31] LABS: Apearance,Urine CLEAR (Clear); Bilirubin,Urine Negative (Negative); Blood, Urine Negative (Negative); Glucose,Urine (UA) Negative (Negative); Hyaline Casts,Urine 19 /LPF (0-3); Ketones,Urine Negative (Negative); Mucus,Urine Occasional /LPF (Occasional); Nitrite,Urine Negative (Negative); Protein,Urine Negative; RBC,Urine 1 /HPF (0-4); Squamous Epithelial Cell,Urine Occasional /HPF (0-10); Urine Color Dark yellow (Yellow); Urine Specific Gravity 1.015 (1.001-1.035); WBC,Urine 2 /HPF (0-6)
[2019-03-13 20:33] LABS: Hypochromasia 1+
[2019-03-13 20:34] LABS: Acanthocytes Few; Anisocytosis 1+; Burr Cells Few; Platelet Estimate Decreased; Poikilocytosis 1+; Polychromasia Few; Schistocytes Few; Target Cells Few
[2019-03-13 20:37] LABS: Barbiturates Screen,Urine Negative (Negative); Benzodiazepines Screen,Urine Negative (Negative); Cannabinoid Screen,Urine Negative (Negative); Opiate Screen,Urine Negative (Negative); Phencyclidine Screen,Urine Negative (Negative)
[2019-03-13] MEDS ORDERED: IBUPROFEN 600 MG TABLET PO PRN (21:16)
[2019-03-13] MEDS ORDERED: ONDANSETRON 4 MG/2 ML VIAL IV PRN (21:16)
[2019-03-13 21:48] LABS: Calcium 8.2 MG/DL (8.5-10.1); Osmolality,Calculated 269.9 MOS/KG (273-304)
[2019-03-13] MEDS: DEXTROSE 5% NACL 0.45% 1,000 ML IV SCH (21:58)
[2019-03-13] MEDS ORDERED: INSULIN REGULAR 100 UNIT/ML IV STA (22:26)
[2019-03-13] MEDS ORDERED: DEXTROSE 50% 25 GM/50 ML VIAL IV STA (22:26)
[2019-03-13] MEDS ORDERED: DEXTROSE 50% 25 GM/50 ML SYRINGE IV ONE (22:38)
[2019-03-14] MEDS ORDERED: SODIUM CHLORIDE 0.9% 1,000 ML IV PRN ×2 (00:15→11:25)
[2019-03-14 08:37] LABS: Basophils % 0.4 % (0.0-0.8); Eosinophils # 0.2 10*3/uL (0.0-0.87); Eosinophils % 3.5 % (0.00-10.9); Hematocrit 22.5 VOL% (42.0-52.0); Hemoglobin 7.8 GM/DL (14.0-18.0); Immature Granulocytes % 0.9 %; Immature Granulocytes Absolute 0.04 #; Lymphocytes # 0.3 10*3/uL (1.4-4.0); Lymphocytes % 6.6 % (21.2-54.2); Mean Corpuscular HGB Conc 34.7 GM/DL (32-36); Mean Corpuscular Volume 97.4 FL (87-102); Monocytes % 15.1 % (1.7-12.7); Neutrophils % 73.5 % (38.7-73.9); Platelet Count 68 T/CUMM (130-400); Red Blood Count 2.31 MC/CUMM (3.8-5.5); Red Cell Distribution Width 20.9 % (9.3-17.3); White Blood Count 4.6 T/CUMM (4-12)
[2019-03-14] MEDS: PANTOPRAZOLE 40 MG VIAL IV SCH (08:39)
[2019-03-14] MEDS: FUROSEMIDE 40 MG/4 ML VIAL IV SCH ×2 (08:41→20:18)
[2019-03-14] MEDS: LACTULOSE 20 GM/30 ML UDCUP PO SCH ×4 (08:42→20:11)
[2019-03-14 08:55] LABS: Burr Cells Few
[2019-03-14 08:56] LABS: Acanthocytes Few; Anisocytosis 1+; Hypochromasia 1+; Microcytosis 1+; Platelet Estimate Decreased
[2019-03-14] MEDS: SODIUM POLYSTYRENE SULFATE 15 GM/60 ML BOTTLE PO SCH ×3 (09:53→21:47)
[2019-03-14 10:00] LABS: Albumin 2.1 G/DL (3.4-5.0); Bilirubin,Total 8.2 MG/DL (0.2-1.0); Calcium 8.1 MG/DL (8.5-10.1); Osmolality,Calculated 273.8 MOS/KG (273-304); Total Protein 5.7 G/DL (6.4-8.3)
[2019-03-14 10:47] LABS: Basophils % 0.5 % (0.0-0.8); Eosinophils # 0.1 10*3/uL (0.0-0.87); Hematocrit 22.9 VOL% (42.0-52.0); Hemoglobin 7.8 GM/DL (14.0-18.0); Immature Granulocytes % 0.9 %; Immature Granulocytes Absolute 0.04 #; Lymphocytes # 0.3 10*3/uL (1.4-4.0); Mean Corpuscular HGB Conc 34.1 GM/DL (32-36); Mean Corpuscular Volume 98.7 FL (87-102); Mean Platelet Volume 10.2 FL (9.6-12.0); Monocytes % 15.9 % (1.7-12.7); Neutrophils % 72.7 % (38.7-73.9); Platelet Count 74 T/CUMM (130-400); Red Blood Count 2.32 MC/CUMM (3.8-5.5); Red Cell Distribution Width 21.4 % (9.3-17.3); White Blood Count 4.4 T/CUMM (4-12)
[2019-03-14 11:00] LABS: INR 1.6; PT Patient Result 17.1 SECS (9.6-12.2)
[2019-03-14 11:40] LABS: Lymphocytes 5 % (20-55); Myelocytes 1 %; Nucleated Red Blood Cells 1 (0-5); Segmented Neutrophils 75 % (50-85); Total Cells Counted 100
[2019-03-14 11:41] LABS: Anisocytosis 1+; Hypochromasia 1+; Microcytosis 1+
[2019-03-14 11:42] LABS: Acanthocytes Few; Burr Cells Few; Platelet Estimate Decreased; Target Cells Slight
[2019-03-14 13:26] LABS: ABG Base Excess -9.8 MMOL/L (-2.5-2.5); ABG HCO3 16.1 MMOL/L (20-26); ABG Oxygen Saturation 56.7 % (95-100); ABG PCO2 34.4 MM HG (35-48); ABG TCO2 15.5 MMOL/L (23-27)
[2019-03-14 13:27] LABS: ABG PO2 32.5 MM HG (80-95)
[2019-03-14] MEDS: DEXTROSE 5% NACL 0.45% 1,000 ML IV SCH ×3 (14:01→23:57)
[2019-03-14] MEDS: LACTULOSE 320 GM/480 ML BOTTLE RECTAL SCH ×2 (15:00→21:47)
[2019-03-14] MEDS ORDERED: ACETYLCYSTEINE INJ 15,000 MG in DEXTROSE 5% 100 ML IV ONE (18:30)
[2019-03-14] MEDS ORDERED: ACETYLCYSTEINE INJ 5,000 MG in DEXTROSE 5% 250 ML IV ONE (20:15)
[2019-03-15] MEDS ORDERED: ACETYLCYSTEINE INJ 10,000 MG in DEXTROSE 5% 1,000 ML IV ONE (00:45)
[2019-03-15] MEDS: SODIUM POLYSTYRENE SULFATE 15 GM/60 ML BOTTLE PO SCH ×4 (03:31→21:57)
[2019-03-15 04:53] LABS: Basophils % 0.5 % (0.0-0.8); Eosinophils # 0.1 10*3/uL (0.0-0.87); Eosinophils % 2.3 % (0.00-10.9); Hematocrit 23.4 VOL% (42.0-52.0); Hemoglobin 8.1 GM/DL (14.0-18.0); Immature Granulocytes % 0.8 %; Immature Granulocytes Absolute 0.03 #; Lymphocytes # 0.3 10*3/uL (1.4-4.0); Mean Corpuscular HGB Conc 34.6 GM/DL (32-36); Mean Corpuscular Volume 92.9 FL (87-102); Mean Platelet Volume 10.9 FL (9.6-12.0); Monocytes % 19.6 % (1.7-12.7); Neutrophils % 69.8 % (38.7-73.9); Red Blood Count 2.52 MC/CUMM (3.8-5.5); Red Cell Distribution Width 20.5 % (9.3-17.3)
[2019-03-15 04:59] LABS: Platelet Count 50 T/CUMM (130-400)
[2019-03-15 05:08] LABS: Calcium 7.7 MG/DL (8.5-10.1); Osmolality,Calculated 287.8 MOS/KG (273-304)
[2019-03-15 05:50] LABS: Eosinophils 4 % (0-10); Lymphocytes 4 % (20-55); Segmented Neutrophils 83 % (50-85); Total Cells Counted 100
[2019-03-15 05:51] LABS: Platelet Estimate Decreased; Polychromasia Few
[2019-03-15] MEDS: FUROSEMIDE 40 MG/4 ML VIAL IV SCH ×2 (09:00→21:55)
[2019-03-15] MEDS: PANTOPRAZOLE 40 MG VIAL IV SCH (09:02)
[2019-03-15] MEDS: DEXTROSE 5% NACL 0.45% 1,000 ML IV SCH ×2 (09:05→16:07)
[2019-03-15] MEDS: LACTULOSE 20 GM/30 ML UDCUP PO SCH ×4 (09:33→21:57)
[2019-03-15] MEDS: LACTULOSE 320 GM/480 ML BOTTLE RECTAL SCH (12:41)
[2019-03-16] MEDS: DEXTROSE 5% NACL 0.45% 1,000 ML IV SCH ×2 (00:10→08:13)
[2019-03-16] MEDS: SODIUM POLYSTYRENE SULFATE 15 GM/60 ML BOTTLE PO SCH ×2 (04:42→09:12)
[2019-03-16 04:56] LABS: Basophils % 0.2 % (0.0-0.8); Eosinophils # 0.1 10*3/uL (0.0-0.87); Eosinophils % 1.2 % (0.00-10.9); Hematocrit 22.1 VOL% (42.0-52.0); Hemoglobin 7.8 GM/DL (14.0-18.0); Immature Granulocytes % 0.7 %; Immature Granulocytes Absolute 0.03 #; Lymphocytes # 0.2 10*3/uL (1.4-4.0); Lymphocytes % 5.6 % (21.2-54.2); Mean Corpuscular HGB Conc 35.3 GM/DL (32-36); Mean Corpuscular Volume 91.7 FL (87-102); Mean Platelet Volume 10.7 FL (9.6-12.0); Neutrophils % 76.3 % (38.7-73.9); Platelet Count 42 T/CUMM (130-400); Red Blood Count 2.41 MC/CUMM (3.8-5.5); White Blood Count 4.3 T/CUMM (4-12)
[2019-03-16 05:14] LABS: Albumin 1.7 G/DL (3.4-5.0); Bilirubin,Total 7.8 MG/DL (0.2-1.0); Calcium 7.6 MG/DL (8.5-10.1); Osmolality,Calculated 289.4 MOS/KG (273-304); Total Protein 5.2 G/DL (6.4-8.3)
[2019-03-16 05:16] LABS: Band Neutrophils 1 % (0-10); Eosinophils 2 % (0-10); Hypochromasia 1+; Lymphocytes 4 % (20-55); Platelet Estimate Decreased; Segmented Neutrophils 80 % (50-85); Total Cells Counted 100
[2019-03-16] MEDS: FUROSEMIDE 40 MG/4 ML VIAL IV SCH ×2 (08:14→21:23)
[2019-03-16] MEDS: PANTOPRAZOLE 40 MG VIAL IV SCH (08:14)
[2019-03-16] MEDS: LACTULOSE 20 GM/30 ML UDCUP PO SCH ×4 (08:14→21:24)
[2019-03-16] MEDS ORDERED: OXYMETAZOLINE 0.05% NASAL SPRAY 15 ML BOTTLE BOTH NARES PRN (09:31)
[2019-03-16] MEDS ORDERED: traMADol 50 MG TABLET PO PRN (12:41)
[2019-03-16] MEDS ORDERED: traZODone 50 MG TABLET PO PRN (12:41)
[2019-03-16] MEDS ORDERED: ALBUMIN 25% 25 GM in PREMIX 1 EACH IV ONE (12:45)
[2019-03-16] MEDS ORDERED: ALBUTEROL 2.5 MG/3 ML NEB RESP TX PRN (13:00)
[2019-03-16] MEDS: ALBUTEROL/IPRATROPIUM 3 ML NEB RESP TX SCH ×2 (13:30→19:22)
[2019-03-16] MEDS: MAGNESIUM CHLORIDE 64 MG TABLET PO SCH (21:23)
[2019-03-16] MEDS: RIFAXIMIN 550 MG TABLET PO SCH (21:23)
[2019-03-16] MEDS: PROPRANOLOL 10 MG TABLET PO SCH (21:23)
[2019-03-17] MEDS: ALBUTEROL/IPRATROPIUM 3 ML NEB RESP TX SCH ×4 (00:15→18:30)
[2019-03-17 07:04] LABS: Basophils % 0.4 % (0.0-0.8); Eosinophils % 1.7 % (0.00-10.9); Hematocrit 22.5 VOL% (42.0-52.0); Hemoglobin 7.8 GM/DL (14.0-18.0); Immature Granulocytes % 0.4 %; Immature Granulocytes Absolute 0.01 #; Lymphocytes # 0.3 10*3/uL (1.4-4.0); Lymphocytes % 11.1 % (21.2-54.2); Mean Corpuscular HGB Conc 34.7 GM/DL (32-36); Mean Corpuscular Volume 94.1 FL (87-102); Mean Platelet Volume 9.9 FL (9.6-12.0); Monocytes % 17.1 % (1.7-12.7); Neutrophils % 69.3 % (38.7-73.9); Red Blood Count 2.39 MC/CUMM (3.8-5.5); Red Cell Distribution Width 20.7 % (9.3-17.3); White Blood Count 2.3 T/CUMM (4-12)
[2019-03-17 07:10] LABS: Platelet Count 31 T/CUMM (130-400)
[2019-03-17 07:23] LABS: Albumin 1.9 G/DL (3.4-5.0); Bilirubin,Direct 2.9 MG/DL (0.0-0.20); Bilirubin,Total 7.9 MG/DL (0.2-1.0); Calcium 8.2 MG/DL (8.5-10.1); Osmolality,Calculated 281.1 MOS/KG (273-304); Total Protein 5.3 G/DL (6.4-8.3)
[2019-03-17 07:31] LABS: Eosinophils 2 % (0-10); Hypochromasia 2+; Lymphocytes 15 % (20-55); Platelet Estimate Decreased; Segmented Neutrophils 68 % (50-85); Total Cells Counted 100
[2019-03-17] MEDS ORDERED: SODIUM CHLORIDE 0.9% 1,000 ML IV PRN (08:49)
[2019-03-17] MEDS ORDERED: MAGNESIUM SULF RIDER 2 GM in PREMIX 1 EACH IV PRN (08:55)
[2019-03-17] MEDS ORDERED: MAGNESIUM SULF RIDER 4 GM in PREMIX 1 EACH IV PRN (08:55)
[2019-03-17] MEDS: RIFAXIMIN 550 MG TABLET PO SCH ×2 (09:37→21:16)
[2019-03-17] MEDS: MAGNESIUM CHLORIDE 64 MG TABLET PO SCH ×2 (09:37→21:16)
[2019-03-17] MEDS: FUROSEMIDE 40 MG TABLET PO SCH ×2 (09:38→17:53)
[2019-03-17] MEDS: PROPRANOLOL 10 MG TABLET PO SCH ×2 (09:38→21:16)
[2019-03-17] MEDS: PANTOPRAZOLE 40 MG TABLET PO SCH (09:38)
[2019-03-17] MEDS: LACTULOSE 20 GM/30 ML UDCUP PO SCH ×4 (09:39→21:16)
[2019-03-17] MEDS: SODIUM CHLORIDE 0.65% NASAL SPRAY 45 ML BOTTLE BOTH NARES SCH ×3 (12:37→21:16)
[2019-03-18] MEDS: ALBUTEROL/IPRATROPIUM 3 ML NEB RESP TX SCH ×3 (00:10→13:53)
[2019-03-18 06:36] LABS: Eosinophils # 0.1 10*3/uL (0.0-0.87); Eosinophils % 2.4 % (0.00-10.9); Hematocrit 23.9 VOL% (42.0-52.0); Hemoglobin 8.1 GM/DL (14.0-18.0); Immature Granulocytes % 0.3 %; Immature Granulocytes Absolute 0.01 #; Lymphocytes # 0.2 10*3/uL (1.4-4.0); Lymphocytes % 8.1 % (21.2-54.2); Mean Corpuscular HGB Conc 33.9 GM/DL (32-36); Mean Corpuscular Volume 96.8 FL (87-102); Monocytes % 16.2 % (1.7-12.7); Platelet Count 49 T/CUMM (130-400); Red Blood Count 2.47 MC/CUMM (3.8-5.5); Red Cell Distribution Width 20.9 % (9.3-17.3)
[2019-03-18 07:01] LABS: Eosinophils 2 % (0-10); Lymphocytes 2 % (20-55); Segmented Neutrophils 76 % (50-85); Total Cells Counted 100
[2019-03-18 07:02] LABS: Hypochromasia 2+; Platelet Estimate Decreased; Target Cells Few
[2019-03-18 07:03] LABS: Albumin 2.1 G/DL (3.4-5.0); Bilirubin,Direct 2.91 MG/DL (0.0-0.20); Bilirubin,Indirect 5.5 MG/DL (0.0-1.0); Bilirubin,Total 8.4 MG/DL (0.2-1.0); Total Protein 5.7 G/DL (6.4-8.3)
[2019-03-18] MEDS ORDERED: MAGNESIUM SULF RIDER 4 GM in PREMIX 1 EACH IV PRN (08:28)
[2019-03-18] MEDS: FUROSEMIDE 40 MG TABLET PO SCH ×2 (09:02→15:53)
[2019-03-18] MEDS: SODIUM CHLORIDE 0.65% NASAL SPRAY 45 ML BOTTLE BOTH NARES SCH ×2 (09:03→13:25)
[2019-03-18] MEDS: PANTOPRAZOLE 40 MG TABLET PO SCH (09:03)
[2019-03-18] MEDS: LACTULOSE 20 GM/30 ML UDCUP PO SCH ×2 (09:03→13:25)
[2019-03-18] MEDS: MAGNESIUM CHLORIDE 64 MG TABLET PO SCH ×2 (09:03→15:53)
[2019-03-18] MEDS: RIFAXIMIN 550 MG TABLET PO SCH (09:03)
[2019-03-18] MEDS: PROPRANOLOL 10 MG TABLET PO SCH (09:03)
[2019-03-18 13:33] VITALS: BP 118/61
== END 2019-03-18 16:16 | disposition home health service (06) | DRG 433 ==
LOC: EDUNIT# → EDBD → N.ED 18:09 → N.EDINP 21:07 → N.TELEN 22:48 → N.ICU 03-14 11:52 → N.5E 03-16 16:39
PROVIDERS: ADMIT Family Medicine; ATTEND Family Medicine

== ENCOUNTER 2019-03-23 15:02 | Inpatient (IN) ==
[2019-03-23 16:16] LABS: Basophils % 0.6 % (0.0-0.8); Eosinophils # 0.1 10*3/uL (0.0-0.87); Eosinophils % 2.5 % (0.00-10.9); Hematocrit 24.3 VOL% (42.0-52.0); Immature Granulocytes % 0.9 %; Immature Granulocytes Absolute 0.03 #; Lymphocytes # 0.3 10*3/uL (1.4-4.0); Lymphocytes % 10.8 % (21.2-54.2); Mean Corpuscular HGB Conc 32.9 GM/DL (32-36); Mean Corpuscular Volume 100.8 FL (87-102); Mean Platelet Volume 10.8 FL (9.6-12.0); Neutrophils % 73.2 % (38.7-73.9); Platelet Count 52 T/CUMM (130-400); Red Blood Count 2.41 MC/CUMM (3.8-5.5); Red Cell Distribution Width 22.1 % (9.3-17.3); White Blood Count 3.2 T/CUMM (4-12)
[2019-03-23 16:51] LABS: Bilirubin,Total 5.9 MG/DL (0.2-1.0); Calcium 7.7 MG/DL (8.5-10.1); Total Protein 6.1 G/DL (6.4-8.3)
[2019-03-23 16:52] LABS: INR 1.7; PT Patient Result 18.7 SECS (9.6-12.2)
[2019-03-23 17:14] LABS: Hypochromasia 1+; Macrocytosis 1+; Polychromasia 1+
[2019-03-23 17:15] LABS: Microcytosis 1+; Platelet Estimate Decreased
[2019-03-23] MEDS ORDERED: PIPERACILLIN/TAZOBACTAM 3,375 MG in SODIUM CHLORIDE 0.9% 100 ML IV STA (17:18)
[2019-03-23] MEDS ORDERED: SODIUM CHLORIDE 0.9% 100 ML IV ONE (18:36)
[2019-03-23] MEDS ORDERED: PIPERACILLIN/TAZOBACTAM 3,375 MG VIAL IV ONE (18:36)
[2019-03-23] MEDS ORDERED: ONDANSETRON 4 MG/2 ML VIAL IV PRN (19:35)
[2019-03-23] MEDS ORDERED: SODIUM CHLORIDE 0.9% 1,000 ML IV SCH (19:35)
[2019-03-23] MEDS ORDERED: ACETAMINOPHEN 325 MG TABLET PO PRN (19:35)
[2019-03-23] MEDS ORDERED: ALBUTEROL/IPRATROPIUM 3 ML NEB RESP TX PRN (20:46)
[2019-03-23] MEDS ORDERED: DOCUSATE SODIUM 100 MG CAPSULE PO SCH (21:00)
[2019-03-23] MEDS: LACTULOSE 20 GM/30 ML UDCUP PO SCH (22:11)
[2019-03-23 22:16] LABS: Apearance,Urine CLEAR (Clear); Bacteria,Urine Occasional /HPF (Few); Bilirubin,Urine Negative (Negative); Blood, Urine Small mg/dL (Negative); Glucose,Urine (UA) Negative (Negative); Hyaline Casts,Urine 38 /LPF (0-3); Ketones,Urine Negative (Negative); Nitrite,Urine Negative (Negative); Protein,Urine Negative; RBC,Urine 1 /HPF (0-4); Urine Color Amber (Yellow); Urine Urobilinogen < 2.0 EU/DL (0.2-1.0); WBC,Urine 1 /HPF (0-6)
[2019-03-23 22:19] LABS: Barbiturates Screen,Urine Negative (Negative); Benzodiazepines Screen,Urine Negative (Negative); Cannabinoid Screen,Urine Negative (Negative); Opiate Screen,Urine Negative (Negative); Phencyclidine Screen,Urine Negative (Negative)
[2019-03-23] MEDS: PROPRANOLOL 10 MG TABLET PO SCH (23:04)
[2019-03-23] MEDS: RIFAXIMIN 550 MG TABLET PO SCH (23:04)
[2019-03-23] MEDS: MAGNESIUM CHLORIDE 64 MG TABLET PO SCH (23:04)
[2019-03-24] MEDS: LACTULOSE 20 GM/30 ML UDCUP PO SCH ×6 (00:19→21:32)
[2019-03-24] MEDS: PIPERACILLIN/TAZOBACTAM 3,375 MG in SODIUM CHLORIDE 0.9% 100 ML IV SCH ×2 (01:53→15:00)
[2019-03-24 05:57] LABS: Basophils % 0.9 % (0.0-0.8); Eosinophils # 0.1 10*3/uL (0.0-0.87); Eosinophils % 2.3 % (0.00-10.9); Hematocrit 20.8 VOL% (42.0-52.0); Immature Granulocytes % 0.6 %; Immature Granulocytes Absolute 0.02 #; Lymphocytes # 0.4 10*3/uL (1.4-4.0); Lymphocytes % 10.5 % (21.2-54.2); Mean Corpuscular HGB Conc 33.7 GM/DL (32-36); Mean Corpuscular Volume 99.5 FL (87-102); Mean Platelet Volume 10.7 FL (9.6-12.0); Monocytes % 10.5 % (1.7-12.7); Neutrophils % 75.2 % (38.7-73.9); Platelet Count 50 T/CUMM (130-400); Red Blood Count 2.09 MC/CUMM (3.8-5.5); Red Cell Distribution Width 22.5 % (9.3-17.3); White Blood Count 3.5 T/CUMM (4-12)
[2019-03-24 06:24] LABS: Eosinophils 2 % (0-10); Lymphocytes 9 % (20-55); Segmented Neutrophils 86 % (50-85); Total Cells Counted 100
[2019-03-24 06:25] LABS: Anisocytosis 1+; Hypochromasia 1+; Ovalocytes 1+; Platelet Estimate Decreased; Target Cells 1+
[2019-03-24 06:34] LABS: Albumin 1.7 G/DL (3.4-5.0); Bilirubin,Total 6.3 MG/DL (0.2-1.0); Calcium 8.1 MG/DL (8.5-10.1); Total Protein 5.2 G/DL (6.4-8.3)
[2019-03-24] MEDS ORDERED: SODIUM CHLORIDE 0.9% 1,000 ML IV PRN ×4 (06:48→14:12)
[2019-03-24] MEDS ORDERED: ALBUMIN 25% 50 GM in PREMIX 1 EACH IV ONE (07:20)
[2019-03-24 08:31] LABS: Hematocrit 22.4 VOL% (42.0-52.0); Hemoglobin 7.2 GM/DL (14.0-18.0)
[2019-03-24] MEDS ORDERED: PANTOPRAZOLE 40 MG TABLET PO SCH ×2 (09:00)
[2019-03-24] MEDS ORDERED: FUROSEMIDE 40 MG/4 ML VIAL IV SCH (09:00)
[2019-03-24] MEDS: PROPRANOLOL 10 MG TABLET PO SCH ×2 (09:48→21:00)
[2019-03-24] MEDS: RIFAXIMIN 550 MG TABLET PO SCH ×2 (09:48→21:32)
[2019-03-24] MEDS: MAGNESIUM CHLORIDE 64 MG TABLET PO SCH ×2 (09:48→21:33)
[2019-03-24] MEDS: FUROSEMIDE 40 MG/4 ML VIAL IV SCH ×2 (09:49→15:30)
[2019-03-24] MEDS: LINACLOTIDE 145 MCG CAPSULE PO SCH (10:00)
[2019-03-24] MEDS ORDERED: FUROSEMIDE 20 MG/2 ML VIAL IV ONE (20:00)
[2019-03-24] MEDS: traMADol 50 MG TABLET PO PRN (21:32)
[2019-03-25] MEDS: LACTULOSE 20 GM/30 ML UDCUP PO SCH ×7 (01:21→21:01)
[2019-03-25] MEDS: PIPERACILLIN/TAZOBACTAM 3,375 MG in SODIUM CHLORIDE 0.9% 100 ML IV SCH ×3 (01:21→19:07)
[2019-03-25 06:45] LABS: Basophils % 0.9 % (0.0-0.8); Eosinophils # 0.1 10*3/uL (0.0-0.87); Eosinophils % 2.2 % (0.00-10.9); Hematocrit 21.3 VOL% (42.0-52.0); Immature Granulocytes % 0.4 %; Immature Granulocytes Absolute 0.01 #; Lymphocytes # 0.3 10*3/uL (1.4-4.0); Lymphocytes % 11.4 % (21.2-54.2); Mean Corpuscular HGB Conc 32.9 GM/DL (32-36); Mean Corpuscular Volume 100.5 FL (87-102); Mean Platelet Volume 10.5 FL (9.6-12.0); Monocytes % 18.4 % (1.7-12.7); Neutrophils % 66.7 % (38.7-73.9); Platelet Count 43 T/CUMM (130-400); Red Blood Count 2.12 MC/CUMM (3.8-5.5); Red Cell Distribution Width 22.3 % (9.3-17.3); White Blood Count 2.3 T/CUMM (4-12)
[2019-03-25 06:56] LABS: INR 1.5; PT Patient Result 16.7 SECS (9.6-12.2); Partial Thromboplastin Time 34.3 SECS (20.8-36.0)
[2019-03-25 07:02] LABS: Calcium 8.4 MG/DL (8.5-10.1); Osmolality,Calculated 283.5 MOS/KG (273-304)
[2019-03-25 07:14] LABS: Eosinophils 1 % (0-10); Hypochromasia 2+; Lymphocytes 8 % (20-55); Macrocytosis 1+; Myelocytes 1 %; Segmented Neutrophils 78 % (50-85); Total Cells Counted 100
[2019-03-25 07:15] LABS: Burr Cells Slight; Platelet Estimate Decreased; Polychromasia Slight; Target Cells Slight
[2019-03-25] MEDS: SODIUM CHLORIDE 0.9% 1,000 ML IV SCH (07:30)
[2019-03-25 10:45] LABS: Basophils % 0.4 % (0.0-0.8); Eosinophils # 0.1 10*3/uL (0.0-0.87); Hematocrit 22.7 VOL% (42.0-52.0); Hemoglobin 7.4 GM/DL (14.0-18.0); Immature Granulocytes % 0.8 %; Immature Granulocytes Absolute 0.02 #; Lymphocytes # 0.3 10*3/uL (1.4-4.0); Lymphocytes % 12.3 % (21.2-54.2); Mean Corpuscular HGB Conc 32.6 GM/DL (32-36); Mean Corpuscular Volume 100.4 FL (87-102); Mean Platelet Volume 10.6 FL (9.6-12.0); Monocytes % 13.9 % (1.7-12.7); Neutrophils % 70.6 % (38.7-73.9); Platelet Count 44 T/CUMM (130-400); Red Blood Count 2.26 MC/CUMM (3.8-5.5); Red Cell Distribution Width 22.5 % (9.3-17.3); White Blood Count 2.4 T/CUMM (4-12)
[2019-03-25] MEDS: POTASSIUM CHLORIDE 20 MEQ TABLET PO PRN ×3 (10:57→21:15)
[2019-03-25] MEDS: PROPRANOLOL 10 MG TABLET PO SCH ×2 (10:58→21:01)
[2019-03-25] MEDS: MAGNESIUM CHLORIDE 64 MG TABLET PO SCH ×2 (10:58→21:01)
[2019-03-25] MEDS: RIFAXIMIN 550 MG TABLET PO SCH ×2 (10:59→21:01)
[2019-03-25] MEDS: PHYTONADIONE 5 MG/5 ML ORAL.SYR PO SCH (10:59)
[2019-03-25] MEDS: LINACLOTIDE 145 MCG CAPSULE PO SCH (10:59)
[2019-03-25] MEDS: MULTIVITAMIN LIQUID (CENTRUM) 60 ML BOTTLE PO SCH (10:59)
[2019-03-25] MEDS: FUROSEMIDE 40 MG/4 ML VIAL IV SCH ×2 (11:00→17:01)
[2019-03-25 11:12] LABS: Hypochromasia 1+
[2019-03-25 11:13] LABS: Macrocytosis 1+; Target Cells Slight
[2019-03-25 11:14] LABS: Platelet Estimate Decreased
[2019-03-25] MEDS ORDERED: LIDOCAINE 2% 5 ML VIAL ONE (12:00)
[2019-03-25] MEDS ORDERED: ETOMIDATE 20 MG/10 ML VIAL IV ONE (12:00)
[2019-03-25] MEDS ORDERED: PROPOFOL 200 MG/20 ML VIAL IV ONE (12:00)
[2019-03-25] MEDS ORDERED: SODIUM CHLORIDE 0.9% 1,000 ML IV PRN (12:47)
[2019-03-25] MEDS: MAGNESIUM SULF RIDER 2 GM in PREMIX 1 EACH IV PRN (17:03)
[2019-03-26 00:01] LABS: Hematocrit 25.8 VOL% (42.0-52.0); Hemoglobin 8.5 GM/DL (14.0-18.0)
[2019-03-26] MEDS: PIPERACILLIN/TAZOBACTAM 3,375 MG in SODIUM CHLORIDE 0.9% 100 ML IV SCH ×3 (01:35→18:09)
[2019-03-26] MEDS: LACTULOSE 20 GM/30 ML UDCUP PO SCH ×5 (01:35→18:08)
[2019-03-26 06:08] LABS: Basophils % 0.7 % (0.0-0.8); Eosinophils # 0.1 10*3/uL (0.0-0.87); Eosinophils % 1.2 % (0.00-10.9); Hematocrit 25.7 VOL% (42.0-52.0); Hemoglobin 8.6 GM/DL (14.0-18.0); Immature Granulocytes % 0.7 %; Immature Granulocytes Absolute 0.03 #; Lymphocytes # 0.3 10*3/uL (1.4-4.0); Lymphocytes % 6.7 % (21.2-54.2); Mean Corpuscular HGB Conc 33.5 GM/DL (32-36); Mean Corpuscular Volume 95.5 FL (87-102); Mean Platelet Volume 10.1 FL (9.6-12.0); Monocytes % 13.5 % (1.7-12.7); Neutrophils % 77.2 % (38.7-73.9); Platelet Count 45 T/CUMM (130-400); Red Blood Count 2.69 MC/CUMM (3.8-5.5); Red Cell Distribution Width 22.6 % (9.3-17.3); White Blood Count 4.2 T/CUMM (4-12)
[2019-03-26 06:35] LABS: Calcium 8.4 MG/DL (8.5-10.1)
[2019-03-26 06:55] LABS: Hypochromasia 1+
[2019-03-26 06:56] LABS: Anisocytosis 1+; Macrocytosis 1+; Target Cells Slight
[2019-03-26 06:57] LABS: Platelet Estimate Decreased
[2019-03-26 06:58] LABS: Burr Cells Slight
[2019-03-26] MEDS: SODIUM CHLORIDE 0.9% 1,000 ML IV SCH (09:23)
[2019-03-26] MEDS: PHYTONADIONE 5 MG/5 ML ORAL.SYR PO SCH (10:28)
[2019-03-26] MEDS: SPIRONOLACTONE 50 MG TABLET PO SCH ×2 (10:28→21:45)
[2019-03-26] MEDS: MULTIVITAMIN LIQUID (CENTRUM) 60 ML BOTTLE PO SCH (10:28)
[2019-03-26] MEDS: MAGNESIUM CHLORIDE 64 MG TABLET PO SCH ×2 (10:28→21:45)
[2019-03-26] MEDS: PROPRANOLOL 10 MG TABLET PO SCH ×2 (10:28→21:45)
[2019-03-26] MEDS: FUROSEMIDE 40 MG/4 ML VIAL IV SCH ×2 (10:29→15:19)
[2019-03-26] MEDS: RIFAXIMIN 550 MG TABLET PO SCH ×2 (10:29→21:45)
[2019-03-26] MEDS: LINACLOTIDE 145 MCG CAPSULE PO SCH (10:29)
[2019-03-26] MEDS: POTASSIUM CHLORIDE 20 MEQ TABLET PO PRN (10:31)
[2019-03-26] MEDS: NYSTATIN 500,000 UNIT/5 ML UDCUP SWISH/SWAL SCH (21:45)
[2019-03-26] MEDS ORDERED: traZODone 50 MG TABLET PO ONE (22:02)
[2019-03-27] MEDS: LACTULOSE 20 GM/30 ML UDCUP PO SCH ×5 (00:12→21:48)
[2019-03-27] MEDS: PIPERACILLIN/TAZOBACTAM 3,375 MG in SODIUM CHLORIDE 0.9% 100 ML IV SCH ×4 (00:13→21:56)
[2019-03-27 06:04] LABS: Basophils % 0.6 % (0.0-0.8); Eosinophils # 0.1 10*3/uL (0.0-0.87); Eosinophils % 1.6 % (0.00-10.9); Hemoglobin 8.6 GM/DL (14.0-18.0); Immature Granulocytes % 0.6 %; Immature Granulocytes Absolute 0.03 #; Lymphocytes # 0.4 10*3/uL (1.4-4.0); Lymphocytes % 8.1 % (21.2-54.2); Mean Corpuscular HGB Conc 33.1 GM/DL (32-36); Mean Corpuscular Volume 96.3 FL (87-102); Mean Platelet Volume 10.5 FL (9.6-12.0); Monocytes % 12.1 % (1.7-12.7); Red Cell Distribution Width 22.6 % (9.3-17.3)
[2019-03-27 06:12] LABS: INR 1.8; PT Patient Result 19.6 SECS (9.6-12.2)
[2019-03-27 06:15] LABS: Platelet Count 41 T/CUMM (130-400)
[2019-03-27 06:21] LABS: Calcium 8.1 MG/DL (8.5-10.1); Osmolality,Calculated 276.8 MOS/KG (273-304)
[2019-03-27 06:25] LABS: Burr Cells Slight; Hypochromasia 1+; Macrocytosis 1+; Ovalocytes Slight; Tear Drop Cells Slight
[2019-03-27 06:26] LABS: Target Cells Slight
[2019-03-27 06:27] LABS: Platelet Estimate Decreased
[2019-03-27] MEDS ORDERED: MAGNESIUM SULF RIDER 4 GM in PREMIX 1 EACH IV ONE (06:30)
[2019-03-27] MEDS: FUROSEMIDE 40 MG/4 ML VIAL IV SCH (09:18)
[2019-03-27] MEDS: LINACLOTIDE 145 MCG CAPSULE PO SCH (10:24)
[2019-03-27] MEDS: RANITIDINE 150 MG TABLET PO SCH ×2 (10:25→21:48)
[2019-03-27] MEDS: NYSTATIN 500,000 UNIT/5 ML UDCUP SWISH/SWAL SCH ×4 (10:25→21:53)
[2019-03-27] MEDS: SPIRONOLACTONE 50 MG TABLET PO SCH ×2 (10:26→21:48)
[2019-03-27] MEDS: RIFAXIMIN 550 MG TABLET PO SCH ×2 (10:26→21:48)
[2019-03-27] MEDS: PROPRANOLOL 10 MG TABLET PO SCH ×2 (10:26→21:48)
[2019-03-27] MEDS: MAGNESIUM CHLORIDE 64 MG TABLET PO SCH ×2 (10:26→21:48)
[2019-03-27] MEDS: MULTIVITAMIN LIQUID (CENTRUM) 60 ML BOTTLE PO SCH (10:27)
[2019-03-27] MEDS: PHYTONADIONE 5 MG/5 ML ORAL.SYR PO SCH (10:27)
[2019-03-27] MEDS: FUROSEMIDE 40 MG TABLET PO SCH ×3 (10:27→21:48)
[2019-03-27] MEDS: SODIUM CHLORIDE 0.9% 1,000 ML IV SCH (11:15)
[2019-03-27 11:40] LABS: Apearance,Urine CLEAR (Clear); Bilirubin,Urine Negative (Negative); Blood, Urine Large mg/dL (Negative); Glucose,Urine (UA) Negative (Negative); Hyaline Casts,Urine 6 /LPF (0-3); Ketones,Urine Negative (Negative); Nitrite,Urine Negative (Negative); Protein,Urine 30 MG/DL; RBC,Urine 972 /HPF (0-4); Urine Color Amber (Yellow); Urine Specific Gravity 1.015 (1.001-1.035); Urine Urobilinogen < 2.0 EU/DL (0.2-1.0)
[2019-03-27] MEDS: traMADol 50 MG TABLET PO PRN (17:05)
[2019-03-28] MEDS: PIPERACILLIN/TAZOBACTAM 3,375 MG in SODIUM CHLORIDE 0.9% 100 ML IV SCH ×3 (06:08→22:52)
[2019-03-28] MEDS: traMADol 50 MG TABLET PO PRN (06:43)
[2019-03-28] MEDS: SODIUM CHLORIDE 0.9% 1,000 ML IV SCH (08:18)
[2019-03-28] MEDS: LACTULOSE 20 GM/30 ML UDCUP PO SCH ×3 (10:14→22:57)
[2019-03-28] MEDS: SPIRONOLACTONE 50 MG TABLET PO SCH ×2 (10:15→22:56)
[2019-03-28] MEDS: NYSTATIN 500,000 UNIT/5 ML UDCUP SWISH/SWAL SCH ×4 (10:15→22:56)
[2019-03-28] MEDS: POTASSIUM CHLORIDE 20 MEQ TABLET PO PRN ×3 (10:15→14:39)
[2019-03-28] MEDS: MULTIVITAMIN LIQUID (CENTRUM) 60 ML BOTTLE PO SCH (10:16)
[2019-03-28] MEDS: RIFAXIMIN 550 MG TABLET PO SCH ×2 (10:16→22:55)
[2019-03-28] MEDS: LINACLOTIDE 145 MCG CAPSULE PO SCH (10:16)
[2019-03-28] MEDS: MAGNESIUM CHLORIDE 64 MG TABLET PO SCH ×2 (10:16→22:55)
[2019-03-28] MEDS: FUROSEMIDE 40 MG TABLET PO SCH ×3 (10:16→22:56)
[2019-03-28] MEDS: PROPRANOLOL 10 MG TABLET PO SCH ×2 (10:16→22:55)
[2019-03-28] MEDS: RANITIDINE 150 MG TABLET PO SCH ×2 (10:17→22:55)
[2019-03-28] MEDS: MAGNESIUM SULF RIDER 2 GM in PREMIX 1 EACH IV PRN (11:40)
[2019-03-29] MEDS: PIPERACILLIN/TAZOBACTAM 3,375 MG in SODIUM CHLORIDE 0.9% 100 ML IV SCH ×2 (06:02→16:03)
[2019-03-29] MEDS: traMADol 50 MG TABLET PO PRN ×2 (06:05→18:42)
[2019-03-29 06:08] LABS: Basophils % 0.9 % (0.0-0.8); Eosinophils # 0.1 10*3/uL (0.0-0.87); Eosinophils % 3.8 % (0.00-10.9); Immature Granulocytes % 0.3 %; Immature Granulocytes Absolute 0.01 #; Lymphocytes # 0.3 10*3/uL (1.4-4.0); Lymphocytes % 9.1 % (21.2-54.2); Mean Corpuscular HGB Conc 33.3 GM/DL (32-36); Mean Corpuscular Volume 98.2 FL (87-102); Mean Platelet Volume 10.2 FL (9.6-12.0); Monocytes % 17.9 % (1.7-12.7); Red Blood Count 2.75 MC/CUMM (3.8-5.5); Red Cell Distribution Width 22.3 % (9.3-17.3); White Blood Count 3.4 T/CUMM (4-12)
[2019-03-29 06:10] LABS: Platelet Count 49 T/CUMM (130-400)
[2019-03-29 06:31] LABS: Eosinophils 5 % (0-10); Lymphocytes 12 % (20-55); Platelet Estimate Decreased; Segmented Neutrophils 65 % (50-85); Total Cells Counted 100
[2019-03-29 06:32] LABS: Anisocytosis 2+; Macrocytosis 2+
[2019-03-29 06:41] LABS: Calcium 7.9 MG/DL (8.5-10.1); Osmolality,Calculated 268.2 MOS/KG (273-304)
[2019-03-29] MEDS: SODIUM CHLORIDE 0.9% 1,000 ML IV SCH (08:46)
[2019-03-29] MEDS: POTASSIUM CHLORIDE 20 MEQ TABLET PO PRN (08:51)
[2019-03-29] MEDS: RIFAXIMIN 550 MG TABLET PO SCH ×2 (08:54→21:10)
[2019-03-29] MEDS: FUROSEMIDE 40 MG TABLET PO SCH ×3 (08:54→21:10)
[2019-03-29] MEDS: RANITIDINE 150 MG TABLET PO SCH ×2 (08:54→21:10)
[2019-03-29] MEDS: PROPRANOLOL 10 MG TABLET PO SCH ×2 (08:54→21:10)
[2019-03-29] MEDS: SPIRONOLACTONE 50 MG TABLET PO SCH ×2 (08:54→21:10)
[2019-03-29] MEDS: MAGNESIUM CHLORIDE 64 MG TABLET PO SCH ×2 (08:54→21:10)
[2019-03-29] MEDS: LINACLOTIDE 145 MCG CAPSULE PO SCH (08:54)
[2019-03-29] MEDS: NYSTATIN 500,000 UNIT/5 ML UDCUP SWISH/SWAL SCH ×4 (08:55→21:10)
[2019-03-29] MEDS: LACTULOSE 20 GM/30 ML UDCUP PO SCH ×3 (08:55→21:10)
[2019-03-29] MEDS: MULTIVITAMIN LIQUID (CENTRUM) 60 ML BOTTLE PO SCH (10:30)
[2019-03-29] MEDS: MAGNESIUM SULF RIDER 2 GM in PREMIX 1 EACH IV PRN ×2 (10:45→12:46)
[2019-03-30] MEDS: PIPERACILLIN/TAZOBACTAM 3,375 MG in SODIUM CHLORIDE 0.9% 100 ML IV SCH ×2 (00:20→09:17)
[2019-03-30 05:28] LABS: Basophils # 0.1 10*3/uL (0.0-0.2); Basophils % 1.1 % (0.0-0.8); Eosinophils # 0.2 10*3/uL (0.0-0.87); Eosinophils % 3.5 % (0.00-10.9); Hematocrit 28.2 VOL% (42.0-52.0); Hemoglobin 9.2 GM/DL (14.0-18.0); Immature Granulocytes % 0.6 %; Immature Granulocytes Absolute 0.03 #; Lymphocytes # 0.4 10*3/uL (1.4-4.0); Lymphocytes % 8.9 % (21.2-54.2); Mean Corpuscular HGB Conc 32.6 GM/DL (32-36); Mean Corpuscular Volume 99.3 FL (87-102); Mean Platelet Volume 10.4 FL (9.6-12.0); Monocytes % 19.4 % (1.7-12.7); Neutrophils % 66.5 % (38.7-73.9); Red Blood Count 2.84 MC/CUMM (3.8-5.5); Red Cell Distribution Width 22.4 % (9.3-17.3); White Blood Count 4.6 T/CUMM (4-12)
[2019-03-30 05:30] LABS: Platelet Count 54 T/CUMM (130-400)
[2019-03-30 05:47] LABS: Band Neutrophils 1 % (0-10); Eosinophils 4 % (0-10); Lymphocytes 5 % (20-55); Segmented Neutrophils 71 % (50-85); Total Cells Counted 100
[2019-03-30 05:48] LABS: Hypochromasia 1+; Platelet Estimate Decreased
[2019-03-30 05:49] LABS: Macrocytosis 1+
[2019-03-30] MEDS: LINACLOTIDE 145 MCG CAPSULE PO SCH (09:12)
[2019-03-30] MEDS: MULTIVITAMIN LIQUID (CENTRUM) 60 ML BOTTLE PO SCH (09:13)
[2019-03-30] MEDS: NYSTATIN 500,000 UNIT/5 ML UDCUP SWISH/SWAL SCH ×2 (09:14→14:18)
[2019-03-30] MEDS: LACTULOSE 20 GM/30 ML UDCUP PO SCH (09:14)
[2019-03-30] MEDS: RANITIDINE 150 MG TABLET PO SCH (09:15)
[2019-03-30] MEDS: MAGNESIUM CHLORIDE 64 MG TABLET PO SCH (09:15)
[2019-03-30] MEDS: SPIRONOLACTONE 50 MG TABLET PO SCH (09:15)
[2019-03-30] MEDS: FUROSEMIDE 40 MG TABLET PO SCH (09:15)
[2019-03-30] MEDS: RIFAXIMIN 550 MG TABLET PO SCH (09:15)
[2019-03-30] MEDS: PROPRANOLOL 10 MG TABLET PO SCH (09:38)
[2019-03-30 11:56] VITALS: BP 105/61
== END 2019-03-30 14:20 | disposition home health service (06) | DRG 432 ==
LOC: EDBD → EDUNIT# → N.ED 15:02 → N.EDINP 17:17 → N.5E 19:02 → N.CC 19:15 → N.5E 19:19 → N.CC 21:25 → N.5E 03-26 15:46
PROVIDERS: ADMIT Family Medicine; ATTEND Family Medicine

== ENCOUNTER 2019-05-05 15:31 | Inpatient (IN) ==
[2019-05-05] MEDS: FUROSEMIDE 40 MG/4 ML VIAL IV SCH (22:15)
[2019-05-05] MEDS: LACTULOSE 20 GM/30 ML UDCUP PO SCH (22:20)
[2019-05-05] MEDS: SPIRONOLACTONE 50 MG TABLET PO SCH (22:21)
[2019-05-05] MEDS: DOCUSATE SODIUM 100 MG CAPSULE PO SCH (22:21)
[2019-05-05] MEDS: RIFAXIMIN 550 MG TABLET PO SCH (22:21)
[2019-05-05] MEDS: PROPRANOLOL 10 MG TABLET PO SCH (22:21)
[2019-05-06 04:48] LABS: Basophils % 0.9 % (0.0-0.8); Eosinophils # 0.2 10*3/uL (0.0-0.87); Eosinophils % 3.5 % (0.00-10.9); Hematocrit 21.8 VOL% (42.0-52.0); Hemoglobin 7.1 GM/DL (14.0-18.0); Immature Granulocytes % 0.9 %; Immature Granulocytes Absolute 0.04 #; Lymphocytes # 0.4 10*3/uL (1.4-4.0); Lymphocytes % 9.3 % (21.2-54.2); Mean Corpuscular HGB Conc 32.6 GM/DL (32-36); Mean Corpuscular Volume 110.7 FL (87-102); Mean Platelet Volume 9.1 FL (9.6-12.0); Monocytes % 17.1 % (1.7-12.7); Neutrophils % 68.3 % (38.7-73.9); Platelet Count 67 T/CUMM (130-400); Red Blood Count 1.97 MC/CUMM (3.8-5.5); Red Cell Distribution Width 19.8 % (9.3-17.3); White Blood Count 4.3 T/CUMM (4-12)
[2019-05-06 04:59] LABS: INR 1.8; PT Patient Result 19.7 SECS (9.6-12.2)
[2019-05-06 05:13] LABS: Eosinophils 2 % (0-10); Lymphocytes 5 % (20-55); Platelet Estimate Decreased; Segmented Neutrophils 79 % (50-85); Total Cells Counted 100
[2019-05-06 05:14] LABS: Hypochromasia 1+; Macrocytosis Slight; Ovalocytes Slight
[2019-05-06 05:19] LABS: Albumin 1.8 G/DL (3.4-5.0); Bilirubin,Direct 4.29 MG/DL (0.0-0.20); Bilirubin,Indirect 7.2 MG/DL (0.0-1.0); Bilirubin,Total 11.5 MG/DL (0.2-1.0); Calcium 8.2 MG/DL (8.5-10.1); Osmolality,Calculated 263.5 MOS/KG (273-304); Total Protein 6.3 G/DL (6.4-8.3)
[2019-05-06] MEDS: LINACLOTIDE 145 MCG CAPSULE PO SCH (07:35)
[2019-05-06] MEDS: PANTOPRAZOLE 40 MG TABLET PO SCH (09:44)
[2019-05-06] MEDS: FUROSEMIDE 40 MG/4 ML VIAL IV SCH ×2 (09:44→21:09)
[2019-05-06] MEDS: PROPRANOLOL 10 MG TABLET PO SCH ×2 (09:44→21:09)
[2019-05-06] MEDS: RIFAXIMIN 550 MG TABLET PO SCH ×2 (09:44→21:09)
[2019-05-06] MEDS: SPIRONOLACTONE 50 MG TABLET PO SCH ×2 (09:44→21:09)
[2019-05-06] MEDS: DOCUSATE SODIUM 100 MG CAPSULE PO SCH ×2 (09:44→19:59)
[2019-05-06] MEDS: LACTULOSE 20 GM/30 ML UDCUP PO SCH ×3 (09:45→20:00)
[2019-05-06] MEDS ORDERED: SODIUM CHLORIDE 0.9% 1,000 ML IV PRN ×2 (11:29→20:04)
[2019-05-06] MEDS ORDERED: FUROSEMIDE 20 MG/2 ML VIAL IV ONE (11:33)
[2019-05-07 05:45] LABS: Basophils % 0.7 % (0.0-0.8); Eosinophils # 0.2 10*3/uL (0.0-0.87); Eosinophils % 2.7 % (0.00-10.9); Hematocrit 26.2 VOL% (42.0-52.0); Hemoglobin 8.7 GM/DL (14.0-18.0); Immature Granulocytes % 0.7 %; Immature Granulocytes Absolute 0.04 #; Lymphocytes # 0.5 10*3/uL (1.4-4.0); Mean Corpuscular HGB Conc 33.2 GM/DL (32-36); Mean Corpuscular Volume 104.4 FL (87-102); Mean Platelet Volume 9.3 FL (9.6-12.0); Neutrophils % 74.9 % (38.7-73.9); Platelet Count 81 T/CUMM (130-400); Red Blood Count 2.51 MC/CUMM (3.8-5.5); Red Cell Distribution Width 22.9 % (9.3-17.3); White Blood Count 5.6 T/CUMM (4-12)
[2019-05-07 06:02] LABS: INR 1.8; PT Patient Result 19.4 SECS (9.6-12.2)
[2019-05-07 06:04] LABS: Hypochromasia 1+; Macrocytosis 1+; Polychromasia Slight
[2019-05-07 06:05] LABS: Platelet Estimate Decreased
[2019-05-07] MEDS ORDERED: SODIUM CHLORIDE 0.9% 1,000 ML IV PRN (06:18)
[2019-05-07 06:19] LABS: Albumin 1.7 G/DL (3.4-5.0); Bilirubin,Direct 4.1 MG/DL (0.0-0.20); Bilirubin,Indirect 6.9 MG/DL (0.0-1.0); Osmolality,Calculated 264.5 MOS/KG (273-304); Total Protein 6.2 G/DL (6.4-8.3)
[2019-05-07 07:42] LABS: Apearance,Urine CLEAR (Clear); Bacteria,Urine Occasional /HPF (Few); Bilirubin,Urine Negative (Negative); Blood, Urine Small mg/dL (Negative); Glucose,Urine (UA) Negative (Negative); Hyaline Casts,Urine 8 /LPF (0-3); Ketones,Urine Negative (Negative); Mucus,Urine Occasional /LPF (Occasional); Nitrite,Urine Negative (Negative); Protein,Urine Negative; RBC,Urine 2 /HPF (0-4); Squamous Epithelial Cell,Urine Occasional /HPF (0-10); Urine Color Amber (Yellow); Urine Specific Gravity 1.012 (1.001-1.035); WBC,Urine 1 /HPF (0-6)
[2019-05-07] MEDS: RIFAXIMIN 550 MG TABLET PO SCH ×2 (08:38→21:47)
[2019-05-07] MEDS: SPIRONOLACTONE 50 MG TABLET PO SCH ×2 (08:38→21:47)
[2019-05-07] MEDS: PROPRANOLOL 10 MG TABLET PO SCH ×2 (08:38→21:47)
[2019-05-07] MEDS: PANTOPRAZOLE 40 MG TABLET PO SCH (08:38)
[2019-05-07] MEDS: ONDANSETRON 4 MG/2 ML VIAL IV PRN (08:39)
[2019-05-07] MEDS: traMADol 50 MG TABLET PO PRN (08:39)
[2019-05-07] MEDS: LINACLOTIDE 145 MCG CAPSULE PO SCH (08:40)
[2019-05-07] MEDS: FUROSEMIDE 40 MG/4 ML VIAL IV SCH ×2 (08:41→15:57)
[2019-05-07] MEDS: LACTULOSE 20 GM/30 ML UDCUP PO SCH ×3 (08:42→21:48)
[2019-05-07] MEDS: ACETAMINOPHEN 325 MG TABLET PO PRN (11:39)
[2019-05-07] MEDS: MIDODRINE 5 MG TABLET PO SCH (21:47)
[2019-05-08 05:14] LABS: INR 1.8; PT Patient Result 19.2 SECS (9.6-12.2)
[2019-05-08 05:15] LABS: Basophils % 0.1 % (0.0-0.8); Eosinophils # 0.1 10*3/uL (0.0-0.87); Eosinophils % 1.3 % (0.00-10.9); Hemoglobin 6.7 GM/DL (14.0-18.0); Immature Granulocytes % 0.6 %; Immature Granulocytes Absolute 0.06 #; Lymphocytes # 0.4 10*3/uL (1.4-4.0); Mean Corpuscular HGB Conc 33.5 GM/DL (32-36); Mean Corpuscular Volume 107.5 FL (87-102); Monocytes % 6.6 % (1.7-12.7); Neutrophils % 87.4 % (38.7-73.9); Red Blood Count 1.86 MC/CUMM (3.8-5.5); Red Cell Distribution Width 23.5 % (9.3-17.3); White Blood Count 10.3 T/CUMM (4-12)
[2019-05-08 05:24] LABS: Platelet Count 54 T/CUMM (130-400)
[2019-05-08 05:39] LABS: Bilirubin,Direct 4.05 MG/DL (0.0-0.20); Bilirubin,Indirect 7.3 MG/DL (0.0-1.0); Bilirubin,Total 11.3 MG/DL (0.2-1.0); Calcium 8.1 MG/DL (8.5-10.1); Osmolality,Calculated 263.8 MOS/KG (273-304); Total Protein 6.3 G/DL (6.4-8.3)
[2019-05-08 05:43] LABS: Band Neutrophils 12 % (0-10); Eosinophils 1 % (0-10); Lymphocytes 5 % (20-55); Segmented Neutrophils 79 % (50-85); Total Cells Counted 100
[2019-05-08 05:44] LABS: Anisocytosis 1+; Hypochromasia 1+; Ovalocytes 1+; Platelet Estimate Decreased; Target Cells Few
[2019-05-08] MEDS: LACTULOSE 20 GM/30 ML UDCUP PO SCH ×3 (08:56→22:12)
[2019-05-08] MEDS: RIFAXIMIN 550 MG TABLET PO SCH ×2 (08:57→22:12)
[2019-05-08] MEDS: FUROSEMIDE 40 MG/4 ML VIAL IV SCH (08:57)
[2019-05-08] MEDS: LINACLOTIDE 145 MCG CAPSULE PO SCH (08:57)
[2019-05-08] MEDS: PANTOPRAZOLE 40 MG TABLET PO SCH (08:57)
[2019-05-08] MEDS: PROPRANOLOL 10 MG TABLET PO SCH ×2 (08:57→22:12)
[2019-05-08] MEDS: SPIRONOLACTONE 50 MG TABLET PO SCH ×2 (08:57→22:12)
[2019-05-08] MEDS: MIDODRINE 5 MG TABLET PO SCH ×3 (08:57→22:12)
[2019-05-08 09:48] LABS: Hematocrit 20.1 VOL% (42.0-52.0); Hemoglobin 6.5 GM/DL (14.0-18.0)
[2019-05-08] MEDS ORDERED: SODIUM CHLORIDE 0.9% 1,000 ML IV PRN (11:09)
[2019-05-08 20:42] LABS: Hematocrit 24.1 VOL% (42.0-52.0)
[2019-05-09 05:59] LABS: Basophils % 0.3 % (0.0-0.8); Eosinophils # 0.2 10*3/uL (0.0-0.87); Eosinophils % 2.9 % (0.00-10.9); Hematocrit 23.1 VOL% (42.0-52.0); Hemoglobin 7.9 GM/DL (14.0-18.0); Immature Granulocytes % 0.7 %; Immature Granulocytes Absolute 0.05 #; Lymphocytes # 0.4 10*3/uL (1.4-4.0); Lymphocytes % 4.9 % (21.2-54.2); Mean Corpuscular HGB Conc 34.2 GM/DL (32-36); Mean Corpuscular Volume 103.6 FL (87-102); Mean Platelet Volume 10.3 FL (9.6-12.0); Monocytes % 9.8 % (1.7-12.7); Neutrophils % 81.4 % (38.7-73.9); Red Blood Count 2.23 MC/CUMM (3.8-5.5); Red Cell Distribution Width 23.6 % (9.3-17.3); White Blood Count 7.4 T/CUMM (4-12)
[2019-05-09 06:00] LABS: Platelet Count 47 T/CUMM (130-400)
[2019-05-09 06:34] LABS: Albumin 1.9 G/DL (3.4-5.0); Bilirubin,Direct 4.08 MG/DL (0.0-0.20); Bilirubin,Total 10.1 MG/DL (0.2-1.0); Calcium 7.7 MG/DL (8.5-10.1); Osmolality,Calculated 262.8 MOS/KG (273-304); Total Protein 6.1 G/DL (6.4-8.3)
[2019-05-09 07:21] LABS: Anisocytosis 2+; Band Neutrophils 11 % (0-10); Eosinophils 3 % (0-10); Hypochromasia 2+; Lymphocytes 3 % (20-55); Macrocytosis 2+; Platelet Estimate Decreased; Segmented Neutrophils 73 % (50-85); Total Cells Counted 100
[2019-05-09 07:22] LABS: Polychromasia 2+; Target Cells 2+
[2019-05-09] MEDS: LACTULOSE 20 GM/30 ML UDCUP PO SCH ×4 (08:26→21:22)
[2019-05-09] MEDS: PROPRANOLOL 10 MG TABLET PO SCH ×2 (08:27→21:20)
[2019-05-09] MEDS: RIFAXIMIN 550 MG TABLET PO SCH ×2 (08:27→21:20)
[2019-05-09] MEDS: LINACLOTIDE 145 MCG CAPSULE PO SCH (08:27)
[2019-05-09] MEDS: SPIRONOLACTONE 50 MG TABLET PO SCH ×2 (08:27→21:20)
[2019-05-09] MEDS: PANTOPRAZOLE 40 MG TABLET PO SCH (08:27)
[2019-05-09] MEDS: MIDODRINE 5 MG TABLET PO SCH ×3 (08:27→21:20)
[2019-05-09] MEDS: FUROSEMIDE 40 MG/4 ML VIAL IV SCH (08:35)
[2019-05-09 09:11] LABS: Hematocrit 24.5 VOL% (42.0-52.0); Hemoglobin 8.3 GM/DL (14.0-18.0)
[2019-05-09] MEDS ORDERED: POTASSIUM CHLORIDE 20 MEQ TABLET PO ONE (09:17)
[2019-05-09] MEDS ORDERED: MAGNESIUM SULF RIDER 2 GM in PREMIX 1 EACH IV ONE (09:20)
[2019-05-09] MEDS: ALBUMIN 25% 25 GM in PREMIX 1 EACH IV SCH ×2 (11:47→18:05)
[2019-05-09 21:55] LABS: Hematocrit 23.3 VOL% (42.0-52.0); Hemoglobin 7.9 GM/DL (14.0-18.0)
[2019-05-10 05:41] LABS: Basophils % 0.3 % (0.0-0.8); Eosinophils # 0.3 10*3/uL (0.0-0.87); Eosinophils % 4.4 % (0.00-10.9); Hemoglobin 8.3 GM/DL (14.0-18.0); Immature Granulocytes Absolute 0.06 #; Lymphocytes # 0.3 10*3/uL (1.4-4.0); Lymphocytes % 4.6 % (21.2-54.2); Mean Corpuscular HGB Conc 33.2 GM/DL (32-36); Mean Corpuscular Volume 104.2 FL (87-102); Mean Platelet Volume 9.8 FL (9.6-12.0); Monocytes % 13.4 % (1.7-12.7); Neutrophils % 76.3 % (38.7-73.9); White Blood Count 5.9 T/CUMM (4-12)
[2019-05-10 06:04] LABS: Platelet Count 58 T/CUMM (130-400)
[2019-05-10] MEDS: ALBUMIN 25% 25 GM in PREMIX 1 EACH IV SCH ×3 (06:04→22:03)
[2019-05-10 06:13] LABS: Albumin 2.2 G/DL (3.4-5.0); Bilirubin,Direct 3.67 MG/DL (0.0-0.20); Bilirubin,Indirect 5.6 MG/DL (0.0-1.0); Bilirubin,Total 9.3 MG/DL (0.2-1.0); Osmolality,Calculated 261.8 MOS/KG (273-304); Total Protein 6.4 G/DL (6.4-8.3)
[2019-05-10 06:34] LABS: Band Neutrophils 4 % (0-10); Eosinophils 6 % (0-10); Lymphocytes 3 % (20-55); Segmented Neutrophils 77 % (50-85); Total Cells Counted 100
[2019-05-10 06:35] LABS: Hypochromasia 1+; Macrocytosis 2+; Platelet Estimate Decreased
[2019-05-10 06:36] LABS: Target Cells Slight
[2019-05-10] MEDS: LIDOCAINE 5% PATCH TRANSDERM SCH (08:34)
[2019-05-10] MEDS: LINACLOTIDE 145 MCG CAPSULE PO SCH (08:35)
[2019-05-10] MEDS: LACTULOSE 20 GM/30 ML UDCUP PO SCH ×3 (08:35→22:02)
[2019-05-10] MEDS: MIDODRINE 5 MG TABLET PO SCH ×3 (08:35→22:03)
[2019-05-10] MEDS: CALCIUM (CITRATE) 200 MG TABLET PO SCH (08:36)
[2019-05-10] MEDS: SPIRONOLACTONE 50 MG TABLET PO SCH ×2 (08:36→22:03)
[2019-05-10] MEDS: FUROSEMIDE 40 MG/4 ML VIAL IV SCH (08:36)
[2019-05-10] MEDS: PANTOPRAZOLE 40 MG TABLET PO SCH (08:36)
[2019-05-10] MEDS: PROPRANOLOL 10 MG TABLET PO SCH ×2 (08:36→22:03)
[2019-05-10] MEDS: RIFAXIMIN 550 MG TABLET PO SCH ×2 (08:36→22:03)
[2019-05-10 08:48] LABS: Hematocrit 23.4 VOL% (42.0-52.0)
[2019-05-10 08:58] LABS: INR 1.9; PT Patient Result 20.5 SECS (9.6-12.2)
[2019-05-10] MEDS ORDERED: SODIUM CHLORIDE 0.9% 1,000 ML IV PRN (13:57)
[2019-05-10] MEDS ORDERED: guaiFENesin 200 MG/10 ML UDCUP PO PRN (16:40)
[2019-05-11] MEDS ORDERED: ALBUTEROL/IPRATROPIUM 3 ML NEB RESP TX ONE (00:52)
[2019-05-11] MEDS ORDERED: FUROSEMIDE 20 MG/2 ML VIAL IV ONE (00:53)
[2019-05-11] MEDS ORDERED: FUROSEMIDE 20 MG/2 ML VIAL IV PRN (00:54)
[2019-05-11] MEDS: ALBUMIN 25% 25 GM in PREMIX 1 EACH IV SCH ×3 (04:46→21:06)
[2019-05-11 05:14] LABS: Basophils % 0.5 % (0.0-0.8); Eosinophils # 0.2 10*3/uL (0.0-0.87); Eosinophils % 4.9 % (0.00-10.9); Hemoglobin 8.2 GM/DL (14.0-18.0); Immature Granulocytes % 0.8 %; Immature Granulocytes Absolute 0.03 #; Lymphocytes # 0.3 10*3/uL (1.4-4.0); Lymphocytes % 7.5 % (21.2-54.2); Mean Corpuscular HGB Conc 32.8 GM/DL (32-36); Mean Corpuscular Volume 101.6 FL (87-102); Mean Platelet Volume 9.7 FL (9.6-12.0); Monocytes % 14.2 % (1.7-12.7); Neutrophils % 72.1 % (38.7-73.9); Platelet Count 51 T/CUMM (130-400); Red Blood Count 2.46 MC/CUMM (3.8-5.5); Red Cell Distribution Width 24.5 % (9.3-17.3); White Blood Count 3.9 T/CUMM (4-12)
[2019-05-11 05:23] LABS: INR 1.6; PT Patient Result 17.7 SECS (9.6-12.2)
[2019-05-11 05:48] LABS: Albumin 2.7 G/DL (3.4-5.0); Bilirubin,Direct 3.54 MG/DL (0.0-0.20); Bilirubin,Indirect 8.2 MG/DL (0.0-1.0); Bilirubin,Total 11.7 MG/DL (0.2-1.0); Calcium 8.3 MG/DL (8.5-10.1); Osmolality,Calculated 267.4 MOS/KG (273-304); Total Protein 6.3 G/DL (6.4-8.3)
[2019-05-11] MEDS: LINACLOTIDE 145 MCG CAPSULE PO SCH (08:37)
[2019-05-11] MEDS: FUROSEMIDE 40 MG/4 ML VIAL IV SCH (08:59)
[2019-05-11 09:29] LABS: INR 2.1
[2019-05-11 12:19] LABS: INR 1.5; PT Patient Result 16.6 SECS (9.6-12.2); Partial Thromboplastin Time 38.5 SECS (20.8-36.0)
[2019-05-11] MEDS: CALCIUM (CITRATE) 200 MG TABLET PO SCH (12:23)
[2019-05-11] MEDS: PROPRANOLOL 10 MG TABLET PO SCH ×2 (12:23→21:07)
[2019-05-11] MEDS: LIDOCAINE 5% PATCH TRANSDERM SCH (12:23)
[2019-05-11] MEDS: LACTULOSE 20 GM/30 ML UDCUP PO SCH ×3 (12:23→21:07)
[2019-05-11] MEDS: SPIRONOLACTONE 50 MG TABLET PO SCH ×2 (12:23→21:07)
[2019-05-11] MEDS: RIFAXIMIN 550 MG TABLET PO SCH ×2 (12:24→21:07)
[2019-05-11] MEDS: PANTOPRAZOLE 40 MG TABLET PO SCH (12:24)
[2019-05-11] MEDS: MIDODRINE 5 MG TABLET PO SCH ×3 (12:24→21:07)
[2019-05-11] MEDS ORDERED: LIDOCAINE 1% 20 ML VIAL ONE (12:36)
[2019-05-11] MEDS ORDERED: DEXAMETHASONE 10 MG/1 ML VIAL ONE (12:36)
[2019-05-11] MEDS ORDERED: TISSUE ADHESIVE 1 EACH APPLICATOR TOP ONE (12:36)
[2019-05-11] MEDS ORDERED: ceFAZolin 1,000 MG VIAL ONE ×2 (12:58→13:12)
[2019-05-11] MEDS ORDERED: DEXMEDETOMIDINE 200 MCG/2 ML VIAL ONE (13:04)
[2019-05-11] MEDS ORDERED: KETAMINE 500 MG/10 ML VIAL ONE (14:01)
[2019-05-11] MEDS ORDERED: fentaNYL 100 MCG/2 ML VIAL ONE (14:01)
[2019-05-11] MEDS ORDERED: MIDAZOLAM 2 MG/2 ML VIAL ONE (14:01)
[2019-05-11] MEDS ORDERED: SODIUM CHLORIDE 0.9% 1,000 ML IV PRN (15:51)
[2019-05-11] MEDS: traMADol 50 MG TABLET PO PRN (23:12)
[2019-05-12] MEDS: ALBUMIN 25% 25 GM in PREMIX 1 EACH IV SCH ×3 (05:19→21:46)
[2019-05-12 06:21] LABS: Basophils % 0.5 % (0.0-0.8); Eosinophils # 0.2 10*3/uL (0.0-0.87); Eosinophils % 4.7 % (0.00-10.9); Hematocrit 23.1 VOL% (42.0-52.0); Hemoglobin 7.5 GM/DL (14.0-18.0); Immature Granulocytes % 0.7 %; Immature Granulocytes Absolute 0.03 #; Lymphocytes # 0.3 10*3/uL (1.4-4.0); Lymphocytes % 6.1 % (21.2-54.2); Mean Corpuscular HGB Conc 32.5 GM/DL (32-36); Mean Corpuscular Volume 104.5 FL (87-102); Mean Platelet Volume 9.4 FL (9.6-12.0); Monocytes % 13.8 % (1.7-12.7); Neutrophils % 74.2 % (38.7-73.9); Red Blood Count 2.21 MC/CUMM (3.8-5.5); Red Cell Distribution Width 24.1 % (9.3-17.3); White Blood Count 4.3 T/CUMM (4-12)
[2019-05-12 06:23] LABS: Platelet Count 57 T/CUMM (130-400)
[2019-05-12 06:35] LABS: Albumin 3.1 G/DL (3.4-5.0); Bilirubin,Direct 3.52 MG/DL (0.0-0.20); Bilirubin,Total 11.5 MG/DL (0.2-1.0); Calcium 8.4 MG/DL (8.5-10.1); Osmolality,Calculated 264.7 MOS/KG (273-304); Total Protein 6.6 G/DL (6.4-8.3)
[2019-05-12 06:44] LABS: Hypochromasia 1+; Macrocytosis 2+; Platelet Estimate Decreased
[2019-05-12] MEDS: CALCIUM (CITRATE) 200 MG TABLET PO SCH (08:52)
[2019-05-12] MEDS: MIDODRINE 5 MG TABLET PO SCH ×3 (08:53→21:55)
[2019-05-12] MEDS: RIFAXIMIN 550 MG TABLET PO SCH ×2 (08:53→21:55)
[2019-05-12] MEDS: PROPRANOLOL 10 MG TABLET PO SCH ×2 (08:53→21:55)
[2019-05-12] MEDS: LINACLOTIDE 145 MCG CAPSULE PO SCH (08:53)
[2019-05-12] MEDS: PANTOPRAZOLE 40 MG TABLET PO SCH (08:54)
[2019-05-12] MEDS: POTASSIUM CHLORIDE 20 MEQ TABLET PO PRN ×2 (08:54→16:59)
[2019-05-12] MEDS: SPIRONOLACTONE 50 MG TABLET PO SCH ×2 (08:54→21:54)
[2019-05-12] MEDS: FUROSEMIDE 40 MG/4 ML VIAL IV SCH (08:55)
[2019-05-12] MEDS: LACTULOSE 20 GM/30 ML UDCUP PO SCH ×3 (08:56→21:54)
[2019-05-12] MEDS: LIDOCAINE 5% PATCH TRANSDERM SCH (09:00)
[2019-05-12 14:02] LABS: Hemoglobin 7.5 GM/DL (14.0-18.0)
[2019-05-13] MEDS: traMADol 50 MG TABLET PO PRN (00:40)
[2019-05-13 05:24] LABS: Basophils % 0.9 % (0.0-0.8); Eosinophils # 0.3 10*3/uL (0.0-0.87); Eosinophils % 6.3 % (0.00-10.9); Hematocrit 26.1 VOL% (42.0-52.0); Hemoglobin 8.5 GM/DL (14.0-18.0); Immature Granulocytes % 1.1 %; Immature Granulocytes Absolute 0.05 #; Lymphocytes # 0.3 10*3/uL (1.4-4.0); Lymphocytes % 7.4 % (21.2-54.2); Mean Corpuscular HGB Conc 32.6 GM/DL (32-36); Mean Corpuscular Volume 104.8 FL (87-102); Mean Platelet Volume 9.4 FL (9.6-12.0); Monocytes % 16.3 % (1.7-12.7); Red Blood Count 2.49 MC/CUMM (3.8-5.5); Red Cell Distribution Width 23.3 % (9.3-17.3); White Blood Count 4.6 T/CUMM (4-12)
[2019-05-13 05:25] LABS: Platelet Count 62 T/CUMM (130-400)
[2019-05-13 05:33] LABS: Calcium 8.8 MG/DL (8.5-10.1); Osmolality,Calculated 266.5 MOS/KG (273-304)
[2019-05-13] MEDS: ALBUMIN 25% 25 GM in PREMIX 1 EACH IV SCH ×3 (05:38→21:11)
[2019-05-13 05:54] LABS: Eosinophils 11 % (0-10); Lymphocytes 3 % (20-55); Segmented Neutrophils 75 % (50-85); Total Cells Counted 100
[2019-05-13 05:55] LABS: Hypochromasia 1+; Macrocytosis Slight; Ovalocytes Slight; Platelet Estimate Decreased
[2019-05-13] MEDS: LIDOCAINE 5% PATCH TRANSDERM SCH (09:54)
[2019-05-13] MEDS: LACTULOSE 20 GM/30 ML UDCUP PO SCH ×3 (09:54→21:14)
[2019-05-13] MEDS: PANTOPRAZOLE 40 MG TABLET PO SCH (09:54)
[2019-05-13] MEDS: MIDODRINE 5 MG TABLET PO SCH ×3 (09:55→21:15)
[2019-05-13] MEDS: PROPRANOLOL 10 MG TABLET PO SCH ×2 (09:55→21:15)
[2019-05-13] MEDS: LINACLOTIDE 145 MCG CAPSULE PO SCH (09:55)
[2019-05-13] MEDS: FUROSEMIDE 40 MG/4 ML VIAL IV SCH (09:55)
[2019-05-13] MEDS: SPIRONOLACTONE 50 MG TABLET PO SCH ×2 (09:55→21:15)
[2019-05-13] MEDS: CALCIUM (CITRATE) 200 MG TABLET PO SCH (09:55)
[2019-05-13] MEDS ORDERED: TUBERCULIN SKIN TEST 0.1 ML SYRINGE INTRADERM ONE (15:16)
[2019-05-14] MEDS: ACETAMINOPHEN 325 MG TABLET PO PRN (00:03)
[2019-05-14 04:50] LABS: Basophils # 0.1 10*3/uL (0.0-0.2); Basophils % 1.3 % (0.0-0.8); Eosinophils # 0.3 10*3/uL (0.0-0.87); Eosinophils % 6.5 % (0.00-10.9); Hemoglobin 8.8 GM/DL (14.0-18.0); Immature Granulocytes % 1.3 %; Immature Granulocytes Absolute 0.05 #; Lymphocytes # 0.4 10*3/uL (1.4-4.0); Lymphocytes % 9.7 % (21.2-54.2); Mean Corpuscular HGB Conc 32.6 GM/DL (32-36); Mean Corpuscular Volume 106.3 FL (87-102); Mean Platelet Volume 9.3 FL (9.6-12.0); Monocytes % 15.7 % (1.7-12.7); Neutrophils % 65.5 % (38.7-73.9); Platelet Count 62 T/CUMM (130-400); Red Blood Count 2.54 MC/CUMM (3.8-5.5); Red Cell Distribution Width 23.7 % (9.3-17.3); White Blood Count 3.8 T/CUMM (4-12)
[2019-05-14] MEDS: ALBUMIN 25% 25 GM in PREMIX 1 EACH IV SCH ×3 (04:54→21:22)
[2019-05-14 05:13] LABS: Eosinophils 6 % (0-10); Hypochromasia 1+; Lymphocytes 4 % (20-55); Macrocytosis Slight; Platelet Estimate Decreased; Segmented Neutrophils 74 % (50-85); Total Cells Counted 100
[2019-05-14 05:19] LABS: Calcium 8.9 MG/DL (8.5-10.1); Osmolality,Calculated 263.7 MOS/KG (273-304)
[2019-05-14 06:33] LABS: Folate 11.8 NG/ML (5.4-24.0)
[2019-05-14] MEDS: CALCIUM (CITRATE) 200 MG TABLET PO SCH (08:36)
[2019-05-14] MEDS: LACTULOSE 20 GM/30 ML UDCUP PO SCH ×3 (08:36→21:21)
[2019-05-14] MEDS: FUROSEMIDE 40 MG/4 ML VIAL IV SCH (08:38)
[2019-05-14] MEDS: LINACLOTIDE 145 MCG CAPSULE PO SCH (08:38)
[2019-05-14] MEDS: LIDOCAINE 5% PATCH TRANSDERM SCH (08:39)
[2019-05-14] MEDS: SPIRONOLACTONE 50 MG TABLET PO SCH ×2 (08:39→21:22)
[2019-05-14] MEDS: PROPRANOLOL 10 MG TABLET PO SCH ×2 (08:39→21:22)
[2019-05-14] MEDS: MIDODRINE 5 MG TABLET PO SCH ×3 (08:39→21:22)
[2019-05-14] MEDS: PANTOPRAZOLE 40 MG TABLET PO SCH (08:39)
[2019-05-14] MEDS ORDERED: ALBUTEROL/IPRATROPIUM 3 ML NEB RESP TX PRN (11:41)
[2019-05-15] MEDS: ACETAMINOPHEN 325 MG TABLET PO PRN (00:01)
[2019-05-15] MEDS: ONDANSETRON 4 MG/2 ML VIAL IV PRN ×2 (00:02→09:24)
[2019-05-15] MEDS: ALBUMIN 25% 25 GM in PREMIX 1 EACH IV SCH ×2 (04:16→15:18)
[2019-05-15 05:43] LABS: Basophils % 1.3 % (0.0-0.8); Eosinophils # 0.2 10*3/uL (0.0-0.87); Hematocrit 23.8 VOL% (42.0-52.0); Hemoglobin 7.5 GM/DL (14.0-18.0); Immature Granulocytes % 0.9 %; Immature Granulocytes Absolute 0.03 #; Lymphocytes # 0.3 10*3/uL (1.4-4.0); Lymphocytes % 8.9 % (21.2-54.2); Mean Corpuscular HGB Conc 31.5 GM/DL (32-36); Mean Corpuscular Volume 107.7 FL (87-102); Mean Platelet Volume 9.4 FL (9.6-12.0); Monocytes % 17.4 % (1.7-12.7); Neutrophils % 65.5 % (38.7-73.9); Platelet Count 59 T/CUMM (130-400); Red Blood Count 2.21 MC/CUMM (3.8-5.5); Red Cell Distribution Width 23.9 % (9.3-17.3); White Blood Count 3.2 T/CUMM (4-12)
[2019-05-15 05:56] LABS: Osmolality,Calculated 272.2 MOS/KG (273-304)
[2019-05-15 06:13] LABS: Eosinophils 10 % (0-10); Hypochromasia 2+; Lymphocytes 15 % (20-55); Macrocytosis Slight; Ovalocytes Slight; Platelet Estimate Decreased; Segmented Neutrophils 62 % (50-85); Total Cells Counted 100
[2019-05-15] MEDS: CALCIUM (CITRATE) 200 MG TABLET PO SCH (08:47)
[2019-05-15] MEDS: LINACLOTIDE 145 MCG CAPSULE PO SCH (08:47)
[2019-05-15] MEDS: MIDODRINE 5 MG TABLET PO SCH (08:47)
[2019-05-15] MEDS: PROPRANOLOL 10 MG TABLET PO SCH (08:47)
[2019-05-15] MEDS: SPIRONOLACTONE 50 MG TABLET PO SCH (08:47)
[2019-05-15] MEDS: PANTOPRAZOLE 40 MG TABLET PO SCH (08:47)
[2019-05-15] MEDS: LIDOCAINE 5% PATCH TRANSDERM SCH (08:49)
[2019-05-15] MEDS: LACTULOSE 20 GM/30 ML UDCUP PO SCH ×2 (08:49→10:16)
[2019-05-15] MEDS: FUROSEMIDE 40 MG/4 ML VIAL IV SCH (08:50)
[2019-05-15 11:50] VITALS: BP 105/52
== END 2019-05-15 15:16 | disposition home health service (06) | DRG 478 ==
LOC: N.2E
PROVIDERS: ADMIT Family Medicine; ATTEND Family Medicine

== ENCOUNTER 2019-05-25 16:13 | Inpatient (IN) ==
[2019-05-25 17:10] LABS: ABG Base Excess 7.4 MMOL/L (-2.5-2.5); ABG HCO3 31.3 MMOL/L (20-26); ABG Oxygen Saturation 98.9 % (95-100); ABG PH 7.414 (7.35-7.45); ABG TCO2 30.5 MMOL/L (23-27); Allen Test Positive
[2019-05-25 17:12] LABS: Basophils # 0.1 10*3/uL (0.0-0.2); Basophils % 1.7 % (0.0-0.8); Eosinophils # 0.2 10*3/uL (0.0-0.87); Eosinophils % 3.2 % (0.00-10.9); Hematocrit 31.1 VOL% (42.0-52.0); Hemoglobin 9.7 GM/DL (14.0-18.0); Immature Granulocytes % 0.6 %; Immature Granulocytes Absolute 0.03 #; Lymphocytes # 0.6 10*3/uL (1.4-4.0); Lymphocytes % 10.8 % (21.2-54.2); Mean Corpuscular HGB Conc 31.2 GM/DL (32-36); Mean Corpuscular Volume 112.3 FL (87-102); Mean Platelet Volume 8.9 FL (9.6-12.0); Monocytes % 16.3 % (1.7-12.7); Neutrophils % 67.4 % (38.7-73.9); Platelet Count 114 T/CUMM (130-400); Red Blood Count 2.77 MC/CUMM (3.8-5.5); Red Cell Distribution Width 24.4 % (9.3-17.3); White Blood Count 5.4 T/CUMM (4-12)
[2019-05-25 17:29] LABS: Alanine Aminotransferase 16 U/L (16-61); Albumin 3.1 G/DL (3.4-5.0); Alkaline Phosphatase 161 U/L (45-117); Aspartate Amino Transferase 51 U/L (0-37); Blood Urea Nitrogen 10 MG/DL (7-18); Calcium 8.3 MG/DL (8.5-10.1); Estimated Glom Filtration Rate 148 ML/MIN; Glucose 63 MG/DL (74-106); Osmolality,Calculated 273.5 MOS/KG (273-304); Total Protein 6.9 G/DL (6.4-8.3); Troponin I 0.018 NG/ML (0.00-0.045)
[2019-05-25] MEDS ORDERED: DEXTROSE 50% 25 GM/50 ML SYRINGE IV ONE (17:34)
[2019-05-25] MEDS ORDERED: DEXTROSE 50% 25 GM/50 ML VIAL IV STA (17:34)
[2019-05-25 17:40] LABS: Anisocytosis 1+; Eosinophils 2 % (0-10); Hypochromasia 1+; Lymphocytes 8 % (20-55); Microcytosis 1+; Platelet Estimate Adequate; Segmented Neutrophils 79 % (50-85); Total Cells Counted 100
[2019-05-25] MEDS ORDERED: MAGNESIUM SULF RIDER 2 GM in PREMIX 1 EACH IV STA ×2 (17:40→18:02)
[2019-05-25 18:20] LABS: INR 2.5
[2019-05-25 18:26] LABS: PT Patient Result 26.5 SECS (9.6-12.2)
[2019-05-25 18:35] LABS: Apearance,Urine CLEAR (Clear); Bacteria,Urine Occasional /HPF (Few); Bilirubin,Urine Negative (Negative); Blood, Urine Small mg/dL (Negative); Glucose,Urine (UA) Negative (Negative); Hyaline Casts,Urine 90 /LPF (0-3); Ketones,Urine Negative (Negative); Mucus,Urine Moderate /LPF (Occasional); Nitrite,Urine Negative (Negative); Protein,Urine Negative; RBC,Urine 4 /HPF (0-4); Squamous Epithelial Cell,Urine Occasional /HPF (0-10); Urine Color Amber (Yellow); Urine Specific Gravity 1.012 (1.001-1.035)
[2019-05-25 18:40] LABS: Barbiturates Screen,Urine Negative (Negative); Benzodiazepines Screen,Urine Negative (Negative); Cannabinoid Screen,Urine Negative (Negative); Opiate Screen,Urine Negative (Negative); Phencyclidine Screen,Urine Negative (Negative)
[2019-05-25] MEDS ORDERED: MORPHINE 4 MG/1 ML VIAL IV PRN (18:56)
[2019-05-25] MEDS ORDERED: DEXTROSE 10% 250 ML BAG IV PRN (18:56)
[2019-05-25] MEDS ORDERED: LACTULOSE 20 GM/30 ML UDCUP PO PRN (18:56)
[2019-05-25] MEDS ORDERED: GLUCAGON 1 MG VIAL IM PRN (18:56)
[2019-05-25] MEDS ORDERED: ACETAMINOPHEN 325 MG TABLET PO PRN (18:56)
[2019-05-25] MEDS: SODIUM CHLORIDE 0.9% 1,000 ML IV SCH (19:45)
[2019-05-25] MEDS: ALBUTEROL/IPRATROPIUM 3 ML NEB RESP TX SCH ×2 (20:05→23:40)
[2019-05-25] MEDS: DOCUSATE SODIUM 100 MG CAPSULE PO SCH (21:36)
[2019-05-26] MEDS: INSULIN REGULAR 100 UNIT/ML SUBCUT SCH ×4 (00:34→18:22)
[2019-05-26] MEDS: ALBUTEROL/IPRATROPIUM 3 ML NEB RESP TX SCH ×5 (03:23→20:25)
[2019-05-26 04:34] LABS: Basophils % 0.8 % (0.0-0.8); Eosinophils # 0.2 10*3/uL (0.0-0.87); Eosinophils % 3.4 % (0.00-10.9); Hematocrit 27.3 VOL% (42.0-52.0); Hemoglobin 8.7 GM/DL (14.0-18.0); Immature Granulocytes % 0.6 %; Immature Granulocytes Absolute 0.03 #; Lymphocytes # 0.5 10*3/uL (1.4-4.0); Lymphocytes % 10.2 % (21.2-54.2); Mean Corpuscular HGB Conc 31.9 GM/DL (32-36); Mean Corpuscular Volume 112.3 FL (87-102); Mean Platelet Volume 8.3 FL (9.6-12.0); Monocytes % 15.6 % (1.7-12.7); Neutrophils % 69.4 % (38.7-73.9); Red Blood Count 2.43 MC/CUMM (3.8-5.5); Red Cell Distribution Width 24.1 % (9.3-17.3); White Blood Count 5.3 T/CUMM (4-12)
[2019-05-26 04:36] LABS: Platelet Count 95 T/CUMM (130-400)
[2019-05-26 04:58] LABS: Alanine Aminotransferase 15 U/L (16-61); Albumin 2.9 G/DL (3.4-5.0); Alkaline Phosphatase 146 U/L (45-117); Aspartate Amino Transferase 42 U/L (0-37); Blood Urea Nitrogen 11 MG/DL (7-18); Calcium 8.3 MG/DL (8.5-10.1); Estimated Glom Filtration Rate 143 ML/MIN; Glucose 73 MG/DL (74-106); HDL Cholesterol 25 MG/DL (40-60); Osmolality,Calculated 270.8 MOS/KG (273-304); Total Protein 6.3 G/DL (6.4-8.3); Triglycerides 48 MG/DL (2-150); VLDL CHOLESTEROL 9.6 MG/DL
[2019-05-26 05:00] LABS: Eosinophils 4 % (0-10); Hypochromasia 1+; Lymphocytes 6 % (20-55); Microcytosis 1+; Platelet Estimate Decreased; Segmented Neutrophils 74 % (50-85); Total Cells Counted 100
[2019-05-26] MEDS ORDERED: DICLOFENAC 1% GEL 100 GM TUBE TOP PRN (07:57)
[2019-05-26] MEDS ORDERED: LINACLOTIDE 145 MCG CAPSULE PO PRN (07:57)
[2019-05-26] MEDS: LACTULOSE 20 GM/30 ML UDCUP PO SCH ×3 (08:34→20:45)
[2019-05-26] MEDS: PANTOPRAZOLE 40 MG VIAL IV SCH (08:34)
[2019-05-26] MEDS: PROPRANOLOL 10 MG TABLET PO SCH ×2 (08:35→20:46)
[2019-05-26] MEDS: FERROUS SULFATE 325 MG TABLET PO SCH ×2 (08:36→20:46)
[2019-05-26] MEDS: SODIUM CHLORIDE 0.65% NASAL SPRAY 45 ML BOTTLE BOTH NARES SCH ×4 (08:36→20:46)
[2019-05-26] MEDS: SPIRONOLACTONE 50 MG TABLET PO SCH ×2 (08:36→20:46)
[2019-05-26] MEDS: RIFAXIMIN 550 MG TABLET PO SCH ×2 (08:36→20:46)
[2019-05-26] MEDS: DOCUSATE SODIUM 100 MG CAPSULE PO SCH ×2 (08:36→20:46)
[2019-05-26] MEDS: MAGNESIUM CHLORIDE 64 MG TABLET PO SCH ×2 (08:36→20:46)
[2019-05-26] MEDS ORDERED: FUROSEMIDE 20 MG TABLET PO SCH (09:00)
[2019-05-26] MEDS: cefTRIAXone 2,000 MG in SYRINGE 1 EACH IV SCH (13:00)
[2019-05-26] MEDS ORDERED: traZODone 50 MG TABLET PO SCH (21:00)
[2019-05-27] MEDS: SODIUM CHLORIDE 0.9% 1,000 ML IV SCH (00:25)
[2019-05-27] MEDS: INSULIN REGULAR 100 UNIT/ML SUBCUT SCH ×4 (00:26→17:45)
[2019-05-27] MEDS: ALBUTEROL/IPRATROPIUM 3 ML NEB RESP TX SCH ×6 (00:28→19:43)
[2019-05-27 05:05] LABS: Basophils % 0.9 % (0.0-0.8); Eosinophils # 0.1 10*3/uL (0.0-0.87); Eosinophils % 3.2 % (0.00-10.9); Hematocrit 26.1 VOL% (42.0-52.0); Hemoglobin 8.1 GM/DL (14.0-18.0); Immature Granulocytes % 0.2 %; Immature Granulocytes Absolute 0.01 #; Lymphocytes # 0.6 10*3/uL (1.4-4.0); Lymphocytes % 13.1 % (21.2-54.2); Mean Platelet Volume 8.6 FL (9.6-12.0); Monocytes % 18.1 % (1.7-12.7); Neutrophils % 64.5 % (38.7-73.9); Red Blood Count 2.31 MC/CUMM (3.8-5.5); Red Cell Distribution Width 24.1 % (9.3-17.3); White Blood Count 4.4 T/CUMM (4-12)
[2019-05-27 05:07] LABS: Platelet Count 88 T/CUMM (130-400)
[2019-05-27 05:16] LABS: Albumin 2.9 G/DL (3.4-5.0); Bilirubin,Direct 5.17 MG/DL (0.0-0.20); Bilirubin,Indirect 10.3 MG/DL (0.0-1.0); Calcium 8.3 MG/DL (8.5-10.1); Osmolality,Calculated 272.8 MOS/KG (273-304); Total Protein 6.5 G/DL (6.4-8.3)
[2019-05-27 05:21] LABS: Bilirubin,Total 15.5 MG/DL (0.2-1.0)
[2019-05-27 05:27] LABS: Band Neutrophils 2 % (0-10); Eosinophils 4 % (0-10); Hypochromasia 1+; Lymphocytes 9 % (20-55); Ovalocytes Slight; Platelet Estimate Decreased; Segmented Neutrophils 69 % (50-85); Total Cells Counted 100
[2019-05-27 05:28] LABS: Microcytosis 1+
[2019-05-27] MEDS ORDERED: FUROSEMIDE 40 MG/4 ML VIAL IV SCH ×2 (08:00→09:00)
[2019-05-27] MEDS: PANTOPRAZOLE 40 MG VIAL IV SCH (08:05)
[2019-05-27] MEDS: SPIRONOLACTONE 50 MG TABLET PO SCH ×2 (08:06→20:14)
[2019-05-27] MEDS: MAGNESIUM CHLORIDE 64 MG TABLET PO SCH ×2 (08:06→20:14)
[2019-05-27] MEDS: FERROUS SULFATE 325 MG TABLET PO SCH ×2 (08:06→20:15)
[2019-05-27] MEDS: RIFAXIMIN 550 MG TABLET PO SCH ×2 (08:07→20:14)
[2019-05-27] MEDS: LACTULOSE 20 GM/30 ML UDCUP PO SCH ×3 (08:07→20:15)
[2019-05-27] MEDS: PROPRANOLOL 10 MG TABLET PO SCH (08:07)
[2019-05-27] MEDS: SODIUM CHLORIDE 0.65% NASAL SPRAY 45 ML BOTTLE BOTH NARES SCH ×4 (08:07→21:00)
[2019-05-27 08:36] LABS: INR 2.3; PT Patient Result 24.6 SECS (9.6-12.2)
[2019-05-27] MEDS: cefTRIAXone 2,000 MG in SYRINGE 1 EACH IV SCH (12:44)
[2019-05-27] MEDS ORDERED: FUROSEMIDE 40 MG TABLET PO SCH (16:00)
[2019-05-27] MEDS: CEFDINIR 300 MG CAPSULE PO SCH (20:14)
[2019-05-27] MEDS: traMADol 50 MG TABLET PO PRN (20:14)
[2019-05-28] MEDS: INSULIN REGULAR 100 UNIT/ML SUBCUT SCH ×4 (00:05→18:44)
[2019-05-28] MEDS: ALBUTEROL/IPRATROPIUM 3 ML NEB RESP TX SCH ×7 (00:18→22:39)
[2019-05-28 04:46] LABS: Basophils % 0.5 % (0.0-0.8); Eosinophils # 0.2 10*3/uL (0.0-0.87); Eosinophils % 4.6 % (0.00-10.9); Hematocrit 24.7 VOL% (42.0-52.0); Hemoglobin 7.8 GM/DL (14.0-18.0); Immature Granulocytes % 0.5 %; Immature Granulocytes Absolute 0.02 #; Lymphocytes # 0.4 10*3/uL (1.4-4.0); Lymphocytes % 9.8 % (21.2-54.2); Mean Corpuscular HGB Conc 31.6 GM/DL (32-36); Mean Corpuscular Volume 111.8 FL (87-102); Mean Platelet Volume 8.8 FL (9.6-12.0); Monocytes % 21.1 % (1.7-12.7); Neutrophils % 63.5 % (38.7-73.9); Platelet Count 58 T/CUMM (130-400); Red Blood Count 2.21 MC/CUMM (3.8-5.5); Red Cell Distribution Width 23.7 % (9.3-17.3); White Blood Count 3.7 T/CUMM (4-12)
[2019-05-28 05:25] LABS: Albumin 2.7 G/DL (3.4-5.0); Bilirubin,Direct 4.35 MG/DL (0.0-0.20); Bilirubin,Indirect 8.8 MG/DL (0.0-1.0); Calcium 8.3 MG/DL (8.5-10.1); Osmolality,Calculated 267.1 MOS/KG (273-304); Total Protein 6.4 G/DL (6.4-8.3)
[2019-05-28 05:27] LABS: Eosinophils 4 % (0-10); Hypochromasia 2+; Lymphocytes 10 % (20-55); Metamyelocytes 1 %; Platelet Estimate Decreased; Polychromasia Few; Segmented Neutrophils 68 % (50-85)
[2019-05-28 05:28] LABS: Total Cells Counted 100
[2019-05-28 05:47] LABS: Bilirubin,Total 13.1 MG/DL (0.2-1.0)
[2019-05-28] MEDS ORDERED: SODIUM CHLORIDE 0.9% 1,000 ML IV PRN (06:46)
[2019-05-28 08:18] LABS: INR 2.4
[2019-05-28 08:19] LABS: PT Patient Result 26.1 SECS (9.6-12.2)
[2019-05-28] MEDS: SPIRONOLACTONE 50 MG TABLET PO SCH ×2 (08:44→22:20)
[2019-05-28] MEDS: CEFDINIR 300 MG CAPSULE PO SCH ×2 (08:44→22:26)
[2019-05-28] MEDS: FERROUS SULFATE 325 MG TABLET PO SCH ×2 (08:44→22:26)
[2019-05-28] MEDS: LACTULOSE 20 GM/30 ML UDCUP PO SCH ×3 (08:44→22:24)
[2019-05-28] MEDS: RIFAXIMIN 550 MG TABLET PO SCH ×2 (08:44→22:26)
[2019-05-28] MEDS: MAGNESIUM CHLORIDE 64 MG TABLET PO SCH ×2 (08:44→22:25)
[2019-05-28] MEDS: FUROSEMIDE 40 MG TABLET PO SCH ×4 (08:45→22:20)
[2019-05-28] MEDS: POTASSIUM CHLORIDE 20 MEQ/15 ML UDCUP PO SCH ×3 (08:51→22:27)
[2019-05-28] MEDS: traMADol 50 MG TABLET PO PRN (08:51)
[2019-05-28] MEDS: SODIUM CHLORIDE 0.65% NASAL SPRAY 45 ML BOTTLE BOTH NARES SCH ×4 (08:59→22:27)
[2019-05-28] MEDS: PANTOPRAZOLE 40 MG VIAL IV SCH (11:20)
[2019-05-28] MEDS: ONDANSETRON 4 MG/2 ML VIAL IV PRN (11:23)
[2019-05-29] MEDS: INSULIN REGULAR 100 UNIT/ML SUBCUT SCH ×4 (01:29→17:19)
[2019-05-29] MEDS: ALBUTEROL/IPRATROPIUM 3 ML NEB RESP TX SCH ×6 (02:47→23:34)
[2019-05-29 07:04] LABS: Basophils % 0.4 % (0.0-0.8); Eosinophils # 0.1 10*3/uL (0.0-0.87); Eosinophils % 3.6 % (0.00-10.9); Hematocrit 21.9 VOL% (42.0-52.0); Immature Granulocytes % 0.7 %; Immature Granulocytes Absolute 0.02 #; Lymphocytes # 0.3 10*3/uL (1.4-4.0); Lymphocytes % 11.3 % (21.2-54.2); Mean Corpuscular Volume 112.9 FL (87-102); Mean Platelet Volume 9.1 FL (9.6-12.0); Monocytes % 15.6 % (1.7-12.7); Neutrophils % 68.4 % (38.7-73.9); Red Blood Count 1.94 MC/CUMM (3.8-5.5); Red Cell Distribution Width 23.5 % (9.3-17.3); White Blood Count 2.8 T/CUMM (4-12)
[2019-05-29 07:05] LABS: Platelet Count 56 T/CUMM (130-400)
[2019-05-29 07:23] LABS: Albumin 2.9 G/DL (3.4-5.0); Bilirubin,Direct 3.76 MG/DL (0.0-0.20); Bilirubin,Indirect 8.5 MG/DL (0.0-1.0); Calcium 8.2 MG/DL (8.5-10.1); Osmolality,Calculated 262.5 MOS/KG (273-304); Total Protein 6.6 G/DL (6.4-8.3)
[2019-05-29 07:29] LABS: Bilirubin,Total 12.3 MG/DL (0.2-1.0)
[2019-05-29 07:33] LABS: INR 1.7; PT Patient Result 18.3 SECS (9.6-12.2)
[2019-05-29 07:35] LABS: Band Neutrophils 2 % (0-10); Eosinophils 3 % (0-10); Lymphocytes 11 % (20-55); Platelet Estimate Decreased; Segmented Neutrophils 66 % (50-85); Total Cells Counted 100
[2019-05-29 07:36] LABS: Acanthocytes 1+; Anisocytosis 1+; Macrocytosis 1+
[2019-05-29] MEDS ORDERED: SODIUM CHLORIDE 0.9% 1,000 ML IV PRN (09:29)
[2019-05-29] MEDS: LACTULOSE 20 GM/30 ML UDCUP PO SCH ×3 (09:38→20:30)
[2019-05-29] MEDS: MAGNESIUM CHLORIDE 64 MG TABLET PO SCH ×2 (09:38→20:32)
[2019-05-29] MEDS: FERROUS SULFATE 325 MG TABLET PO SCH ×2 (09:38→20:32)
[2019-05-29] MEDS: FUROSEMIDE 40 MG TABLET PO SCH ×3 (09:38→20:32)
[2019-05-29] MEDS: SPIRONOLACTONE 50 MG TABLET PO SCH ×2 (09:38→20:32)
[2019-05-29] MEDS: CEFDINIR 300 MG CAPSULE PO SCH ×2 (09:38→20:32)
[2019-05-29] MEDS: PANTOPRAZOLE 40 MG VIAL IV SCH (09:38)
[2019-05-29] MEDS: RIFAXIMIN 550 MG TABLET PO SCH ×2 (09:38→20:32)
[2019-05-29] MEDS: POTASSIUM CHLORIDE 20 MEQ/15 ML UDCUP PO SCH ×3 (09:44→20:31)
[2019-05-29] MEDS: SODIUM CHLORIDE 0.65% NASAL SPRAY 45 ML BOTTLE BOTH NARES SCH ×5 (09:44→20:38)
[2019-05-29] MEDS ORDERED: METOPROLOL TARTRATE 25 MG TABLET PO ONE (18:31)
[2019-05-29] MEDS ORDERED: METOPROLOL TARTRATE 5 MG/5 ML VIAL IV ONE (18:33)
[2019-05-29] MEDS: traMADol 50 MG TABLET PO PRN (20:32)
[2019-05-29] MEDS: traZODone 50 MG TABLET PO PRN (22:52)
[2019-05-30] MEDS: INSULIN REGULAR 100 UNIT/ML SUBCUT SCH ×5 (00:49→23:58)
[2019-05-30] MEDS: ALBUTEROL/IPRATROPIUM 3 ML NEB RESP TX SCH ×6 (04:00→23:20)
[2019-05-30 07:15] LABS: Basophils % 0.6 % (0.0-0.8); Eosinophils # 0.2 10*3/uL (0.0-0.87); Hemoglobin 9.9 GM/DL (14.0-18.0); Immature Granulocytes % 0.8 %; Immature Granulocytes Absolute 0.03 #; Lymphocytes # 0.4 10*3/uL (1.4-4.0); Lymphocytes % 11.5 % (21.2-54.2); Mean Corpuscular HGB Conc 31.9 GM/DL (32-36); Mean Corpuscular Volume 108.4 FL (87-102); Mean Platelet Volume 8.8 FL (9.6-12.0); Monocytes % 19.3 % (1.7-12.7); Neutrophils % 62.8 % (38.7-73.9); Platelet Count 54 T/CUMM (130-400); Red Blood Count 2.86 MC/CUMM (3.8-5.5); Red Cell Distribution Width 25.2 % (9.3-17.3); White Blood Count 3.6 T/CUMM (4-12)
[2019-05-30 07:32] LABS: Albumin 2.5 G/DL (3.4-5.0); Bilirubin,Direct 3.64 MG/DL (0.0-0.20); Bilirubin,Indirect 8.5 MG/DL (0.0-1.0); Calcium 8.2 MG/DL (8.5-10.1); Osmolality,Calculated 262.4 MOS/KG (273-304); Total Protein 6.5 G/DL (6.4-8.3)
[2019-05-30 07:38] LABS: Bilirubin,Total 12.1 MG/DL (0.2-1.0)
[2019-05-30 08:08] LABS: Anisocytosis 2+; Eosinophils 6 % (0-10); Hypochromasia 2+; Lymphocytes 10 % (20-55); Macrocytosis 2+; Platelet Estimate Decreased; Poikilocytosis Slight; Segmented Neutrophils 69 % (50-85); Total Cells Counted 100
[2019-05-30] MEDS: CEFDINIR 300 MG CAPSULE PO SCH ×2 (09:45→20:28)
[2019-05-30] MEDS: POTASSIUM CHLORIDE 20 MEQ/15 ML UDCUP PO SCH ×3 (09:45→20:28)
[2019-05-30] MEDS: RIFAXIMIN 550 MG TABLET PO SCH ×2 (09:45→20:28)
[2019-05-30] MEDS: FERROUS SULFATE 325 MG TABLET PO SCH ×2 (09:45→20:28)
[2019-05-30] MEDS: SODIUM CHLORIDE 0.65% NASAL SPRAY 45 ML BOTTLE BOTH NARES SCH ×4 (09:46→20:36)
[2019-05-30] MEDS: MAGNESIUM CHLORIDE 64 MG TABLET PO SCH ×2 (09:46→20:28)
[2019-05-30] MEDS: SPIRONOLACTONE 50 MG TABLET PO SCH ×2 (09:46→20:28)
[2019-05-30] MEDS: LACTULOSE 20 GM/30 ML UDCUP PO SCH ×3 (09:46→20:28)
[2019-05-30] MEDS: FUROSEMIDE 40 MG TABLET PO SCH ×3 (09:48→20:28)
[2019-05-30] MEDS: PANTOPRAZOLE 40 MG VIAL IV SCH (10:49)
[2019-05-30] MEDS: ONDANSETRON 4 MG/2 ML VIAL IV PRN (13:16)
[2019-05-30] MEDS: traMADol 50 MG TABLET PO PRN (20:31)
[2019-05-30] MEDS: traZODone 50 MG TABLET PO PRN (23:24)
[2019-05-31] MEDS: ALBUTEROL/IPRATROPIUM 3 ML NEB RESP TX SCH ×6 (03:38→23:10)
[2019-05-31 05:04] LABS: Basophils % 0.7 % (0.0-0.8); Eosinophils # 0.2 10*3/uL (0.0-0.87); Eosinophils % 3.6 % (0.00-10.9); Hematocrit 29.7 VOL% (42.0-52.0); Hemoglobin 9.6 GM/DL (14.0-18.0); Immature Granulocytes Absolute 0.04 #; Lymphocytes # 0.4 10*3/uL (1.4-4.0); Lymphocytes % 10.2 % (21.2-54.2); Mean Corpuscular HGB Conc 32.3 GM/DL (32-36); Mean Platelet Volume 8.9 FL (9.6-12.0); Monocytes % 17.1 % (1.7-12.7); Neutrophils % 67.4 % (38.7-73.9); Platelet Count 53 T/CUMM (130-400); Red Blood Count 2.75 MC/CUMM (3.8-5.5); Red Cell Distribution Width 25.1 % (9.3-17.3); White Blood Count 4.2 T/CUMM (4-12)
[2019-05-31] MEDS: INSULIN REGULAR 100 UNIT/ML SUBCUT SCH ×3 (05:20→17:49)
[2019-05-31 05:39] LABS: Albumin 2.6 G/DL (3.4-5.0); Bilirubin,Direct 3.55 MG/DL (0.0-0.20); Bilirubin,Indirect 8.8 MG/DL (0.0-1.0); Calcium 8.2 MG/DL (8.5-10.1); Osmolality,Calculated 260.7 MOS/KG (273-304); Total Protein 6.3 G/DL (6.4-8.3)
[2019-05-31 05:41] LABS: Bilirubin,Total 12.3 MG/DL (0.2-1.0)
[2019-05-31 05:54] LABS: Band Neutrophils 1 % (0-10); Eosinophils 3 % (0-10); Lymphocytes 14 % (20-55); Segmented Neutrophils 75 % (50-85); Total Cells Counted 100
[2019-05-31 05:55] LABS: Anisocytosis 1+; Hypochromasia 1+; Macrocytosis 1+; Ovalocytes 1+
[2019-05-31 05:56] LABS: Platelet Estimate Decreased
[2019-05-31] MEDS: FUROSEMIDE 40 MG TABLET PO SCH ×3 (09:11→21:16)
[2019-05-31] MEDS: LACTULOSE 20 GM/30 ML UDCUP PO SCH ×3 (09:11→21:14)
[2019-05-31] MEDS: FERROUS SULFATE 325 MG TABLET PO SCH ×2 (09:11→21:16)
[2019-05-31] MEDS: POTASSIUM CHLORIDE 20 MEQ/15 ML UDCUP PO SCH ×3 (09:11→21:15)
[2019-05-31] MEDS: MAGNESIUM CHLORIDE 64 MG TABLET PO SCH ×2 (09:11→21:16)
[2019-05-31] MEDS: SODIUM CHLORIDE 0.65% NASAL SPRAY 45 ML BOTTLE BOTH NARES SCH ×4 (09:11→21:17)
[2019-05-31] MEDS: PANTOPRAZOLE 40 MG VIAL IV SCH (09:11)
[2019-05-31] MEDS: CEFDINIR 300 MG CAPSULE PO SCH ×2 (09:11→21:16)
[2019-05-31] MEDS: SPIRONOLACTONE 50 MG TABLET PO SCH ×2 (09:11→21:15)
[2019-05-31] MEDS: RIFAXIMIN 550 MG TABLET PO SCH ×2 (09:12→21:16)
[2019-05-31 11:26] LABS: INR 2.3; PT Patient Result 24.4 SECS (9.6-12.2)
[2019-05-31] MEDS ORDERED: SODIUM CHLORIDE 0.9% 1,000 ML IV PRN (17:03)
[2019-05-31] MEDS: traZODone 50 MG TABLET PO PRN (21:24)
[2019-06-01] MEDS: INSULIN REGULAR 100 UNIT/ML SUBCUT SCH ×4 (00:58→18:16)
[2019-06-01] MEDS: ALBUTEROL/IPRATROPIUM 3 ML NEB RESP TX SCH ×6 (04:01→23:27)
[2019-06-01] MEDS: MAGNESIUM CHLORIDE 64 MG TABLET PO SCH ×2 (09:13→23:07)
[2019-06-01] MEDS: CEFDINIR 300 MG CAPSULE PO SCH ×2 (09:13→23:07)
[2019-06-01] MEDS: PANTOPRAZOLE 40 MG VIAL IV SCH (09:13)
[2019-06-01] MEDS: RIFAXIMIN 550 MG TABLET PO SCH ×2 (09:13→23:07)
[2019-06-01] MEDS: SPIRONOLACTONE 50 MG TABLET PO SCH ×2 (09:14→23:07)
[2019-06-01] MEDS: FUROSEMIDE 40 MG TABLET PO SCH ×3 (09:14→23:07)
[2019-06-01] MEDS: FERROUS SULFATE 325 MG TABLET PO SCH ×2 (09:14→23:07)
[2019-06-01] MEDS: OXYMETAZOLINE 0.05% NASAL SPRAY 15 ML BOTTLE BOTH NARES PRN ×3 (09:19→23:08)
[2019-06-01] MEDS: SODIUM CHLORIDE 0.65% NASAL SPRAY 45 ML BOTTLE BOTH NARES SCH ×4 (09:19→23:14)
[2019-06-01] MEDS: LACTULOSE 20 GM/30 ML UDCUP PO SCH ×3 (09:20→23:08)
[2019-06-01 09:37] LABS: Basophils % 0.7 % (0.0-0.8); Eosinophils # 0.1 10*3/uL (0.0-0.87); Eosinophils % 4.9 % (0.00-10.9); Hematocrit 25.4 VOL% (42.0-52.0); Hemoglobin 8.2 GM/DL (14.0-18.0); Immature Granulocytes % 0.4 %; Immature Granulocytes Absolute 0.01 #; Lymphocytes # 0.2 10*3/uL (1.4-4.0); Lymphocytes % 8.1 % (21.2-54.2); Mean Corpuscular HGB Conc 32.3 GM/DL (32-36); Monocytes % 16.5 % (1.7-12.7); Neutrophils % 69.4 % (38.7-73.9); Platelet Count 50 T/CUMM (130-400); Red Blood Count 2.33 MC/CUMM (3.8-5.5); Red Cell Distribution Width 24.1 % (9.3-17.3); White Blood Count 2.8 T/CUMM (4-12)
[2019-06-01 09:42] LABS: INR 1.5; PT Patient Result 16.2 SECS (9.6-12.2)
[2019-06-01 10:03] LABS: Eosinophils 6 % (0-10); Hypochromasia 2+; Lymphocytes 5 % (20-55); Platelet Estimate Decreased; Segmented Neutrophils 76 % (50-85); Total Cells Counted 100
[2019-06-01 10:04] LABS: Macrocytosis Slight
[2019-06-01 10:08] LABS: Albumin 3.1 G/DL (3.4-5.0); Bilirubin,Direct 3.26 MG/DL (0.0-0.20); Bilirubin,Indirect 7.5 MG/DL (0.0-1.0); Bilirubin,Total 10.8 MG/DL (0.2-1.0); Calcium 8.5 MG/DL (8.5-10.1); Osmolality,Calculated 257.8 MOS/KG (273-304); Total Protein 7.1 G/DL (6.4-8.3)
[2019-06-01] MEDS ORDERED: LACTATED RINGERS 1,000 ML IV SCH (12:00)
[2019-06-01] MEDS ORDERED: LIDOCAINE 1% 20 ML VIAL ONE (12:16)
[2019-06-01] MEDS ORDERED: TISSUE ADHESIVE 1 EACH APPLICATOR TOP ONE (12:28)
[2019-06-01] MEDS: POTASSIUM CHLORIDE 20 MEQ/15 ML UDCUP PO SCH ×3 (12:49→23:08)
[2019-06-01] MEDS: traMADol 50 MG TABLET PO PRN ×2 (15:41→23:07)
[2019-06-01] MEDS ORDERED: DEXTROSE 50% 25 GM/50 ML VIAL IV PRN (17:05)
[2019-06-01] MEDS ORDERED: GLUCAGON 1 MG VIAL IM PRN (17:05)
[2019-06-01] MEDS: traZODone 50 MG TABLET PO PRN (23:07)
[2019-06-02] MEDS: INSULIN REGULAR 100 UNIT/ML SUBCUT SCH ×3 (01:08→12:56)
[2019-06-02] MEDS: ALBUTEROL/IPRATROPIUM 3 ML NEB RESP TX SCH ×3 (03:47→11:32)
[2019-06-02] MEDS: POTASSIUM CHLORIDE 20 MEQ/15 ML UDCUP PO SCH (09:42)
[2019-06-02] MEDS: LACTULOSE 20 GM/30 ML UDCUP PO SCH (09:43)
[2019-06-02] MEDS: RIFAXIMIN 550 MG TABLET PO SCH (09:44)
[2019-06-02] MEDS: FUROSEMIDE 40 MG TABLET PO SCH (09:44)
[2019-06-02] MEDS: FERROUS SULFATE 325 MG TABLET PO SCH (09:44)
[2019-06-02] MEDS: CEFDINIR 300 MG CAPSULE PO SCH (09:45)
[2019-06-02] MEDS: SPIRONOLACTONE 50 MG TABLET PO SCH (09:45)
[2019-06-02] MEDS: MAGNESIUM CHLORIDE 64 MG TABLET PO SCH (09:45)
[2019-06-02] MEDS: SODIUM CHLORIDE 0.65% NASAL SPRAY 45 ML BOTTLE BOTH NARES SCH ×2 (09:49→13:40)
[2019-06-02] MEDS: PANTOPRAZOLE 40 MG VIAL IV SCH (09:54)
[2019-06-02] MEDS: traMADol 50 MG TABLET PO PRN (09:57)
[2019-06-02 11:43] VITALS: BP 105/59
== END 2019-06-02 15:28 | disposition hospice, home (50) | DRG 982 ==
LOC: EDBD → EDUNIT# → N.ED 16:13 → N.EDINP 18:04 → N.CC 20:39 → N.2E 05-28 17:05
PROVIDERS: ADMIT Internal Medicine; ATTEND Family Medicine